=== PATIENT | female | born 1950 | race Caucasian/White ===

== ENCOUNTER → 2017-06-01 10:34 | Outpatient (CLI) | payer MEDICARE, OTHER, SELFPAY ==
[2017-06-01 12:57] LABS: ALB/GLOB Ratio 0.7 RATIO (0.9-2.4); AST(SGOT) 19 U/L (15-37); Alanine Aminotransfer ALT/SGPT 17 U/L (13-56); Albumin, Serum 3.3 g/dL (3.2-5.0); Alkaline Phosphatase 203 U/L (45-117); Anion Gap 10 (5-15); BUN 14 mg/dL (7-18); BUN/Creat Ratio 15.1 RATIO (10-20); Bilirubin, Direct 0.05 mg/dL (0.00-0.30); Calcium,Total 8.8 mg/dL (8.5-10.1); Chloride 102 mmol/L (98-107); Cholesterol 169 mg/dL (200); Creatinine, Serum 0.92 mg/dL (0.55-1.02); EST Glomerular Filtration Rate 64 mL/min (>60); Est Glom Filt Rate - Afr Amer 78 mL/min (>60); Globulin 4.9 g/dL (2.2-4.2); Glucose 87 mg/dL (74-106); High Density Lipoprotein 50 mg/dL; Potassium 3.6 mmol/L (3.5-5.1); Protein, Total 8.2 g/dL (6.4-8.2); Sodium Level 139 mmol/L (136-145); Triglycerides 94 mg/dL; Uric Acid 2.8 mg/dL (2.6-6.0); Very Low Density Lipoprotein 19 mg/dL (5-40)
== END ==
PROVIDERS: Family Provider Family Medicine; PCP Family Medicine; Visit Provider Family Medicine
DX: I10 Essential (primary) hypertension (principal); E78.00 Pure hypercholesterolemia, unspecified; R74.8 Abnormal levels of other serum enzymes; M10.9 Gout, unspecified
CPT/HCPCS: 80053; 80061; 80076; 84550

== ENCOUNTER 2018-05-07 10:57 | Inpatient (IN) | payer MEDICARE, OTHER, SELFPAY ==
[2018-05-07] VITALS (16 sets, daily range): BP systolic 118–194; BP diastolic 66–97; PULSE 69–94; RESP 18–36; TEMP 36.4–37.2; O2SAT 88–99; BMI 32.3; BMI 33.0
--- NOTE | 2018-05-07 11:31 | EKG12_ITS ---
Test Reason : SOB Blood Pressure : / mmHG Vent. Rate : 072 BPM Atrial Rate : 072 BPM P-R Int : 162 ms QRS Dur : 090 ms QT Int : 446 ms P-R-T Axes : 063 018 114 degrees QTc Int : 488 ms Normal sinus rhythm ST & T wave abnormality, consider lateral ischemia Abnormal ECG Confirmed by JORGE MALHOTRA, MICHELLE ([id number]), publishing editor NETTA RUBI ([id number]) on 05/09/2018 4:19:20 PM Referred By: RU Confirmed By:MICHELLE PATEL MD
--- NOTE | 2018-05-07 11:31 | RAD_ITS ---
STUDY: X-RAY CHEST REASON FOR EXAM: Female, 68 years old. Shortness of breath TECHNIQUE: Single AP portable view of the chest. COMPARISON: None. FINDINGS: Lungs are mildly hypoinflated. Left basilar airspace disease with small effusion. There appears to be a background of mild interstitial edema. There is mild cardiac enlargement. Normal mediastinum and ely. Normal visualized pulmonary arteries. There is atherosclerotic tortuosity of the aortic arch and descending thoracic aorta. There are diffuse degenerative changes of the visualized thoracic spine. There is degenerative osteoarthritis of the bilateral shoulders. There is no demonstrated abnormality of the visualized soft tissue structures of the upper abdomen. RAD/Chest 1 View (Portable) IMPRESSION: Background of mild pulmonary vascular congestion/interstitial edema with superimposed left lower lobe airspace disease and small effusion Electronically Signed: Santiago Johnson DO at 12:15 EDT Tel , Service support ,
[2018-05-07] MEDS: Ipratropium/Albuterol Sulfate 3 ML AMPUL.NEB INHALATION (11:45)
[2018-05-07 12:16] LABS: Anion Gap 7 (5-15); BUN 13 mg/dL (7-18); BUN/Creat Ratio 11.3 RATIO (10-20); Calcium,Total 8.3 mg/dL (8.5-10.1); Chloride 100 mmol/L (98-107); Creatinine, Serum 1.15 mg/dL (0.55-1.02); EST Glomerular Filtration Rate 50 mL/min (>60); Est Glom Filt Rate - Afr Amer 60 mL/min (>60); Estimated Creatinine Clearance 36.52 ml/min; Glucose 117 mg/dL (74-106); Potassium 3.3 mmol/L (3.5-5.1); Sodium Level 135 mmol/L (136-145)
[2018-05-07 12:17] LABS: Absolute Lymphocyte Count 1.22 X10^3/ul (0.83-4.51); Absolute Neutrophil Count 6.8 X10^3/uL (2.0-7.7); Basophil# 0.04 X10^3/uL; Basophil% 0.5 % (0-1); Differential Indicated SCAN CRITERIA MET; Eosinophils% 2.3 % (0-5); Hematocrit 23.3 % (37-47); Hemoglobin 6.1 g/dl (12.0-15.0); Lymphocyte # 1.22 X10^3/ul (4.0); Lymphocyte % 13.9 % (19-41); Mean Corp Hgb Conc 26.2 g/gl (32-36); Mean Corpuscular Hgb 17.7 pg (27.0-32.0); Mean Corpuscular Volume 67.5 fL (81-99); Mean Platelet Vol. 10.4 fl (6.2-12.0); Monocyte# 0.49 X10^3/uL; Monocyte% 5.6 % (0-10); Neutrophil # 6.78 X10^3/uL (2.7-7.7); Neutrophil % 77.2 % (47-70); POSITIVE COUNT NO; POSITIVE DIFFERENTIAL NO; POSITIVE MORPHOLOGY YES; Platelet Count 605 K/mm3 (150-450); RBC Distribution Width CV 19.1 % (11.6-14.6); RBC Distribution Width SD 45.5 fl (35.1-43.9); Red Blood Count 3.45 M/mm3 (4.2-5.4); White Blood Count 8.8 K/mm3 (4.4-11.0)
[2018-05-07 12:22] LABS: Absolute Nucleated RBC Count 0.16 10^3/uL (0-5); NRBC Flagged by Analyzer 1.9 % (0-5)
[2018-05-07 12:24] LABS: Lactic Acid 2.6 mmol/L (0.4-2.0)
[2018-05-07 12:37] LABS: Anisocytosis 2+; Hypochromasia 2+
--- NOTE | 2018-05-07 12:57 | ED.DCSUM_ITS ---
- ER Visit Summary Date of Service: 05/07/18 Chief Complaint: Shortness of breath History of Present Illness: The patient is a 68 F presents with dyspnea for 2-3 days she has had a cold for the past 2 weeks. She was seen by her primary care physician this morning and was found to be hypoxic and brought to the emergency department. Patient denies any fever or chills, she denies any chest pain. She has no leg pain or calf pain. She has no DVT or PE risk factors. She has no back pain or tearing sensation. Physical Examination: Patient is 88% on room air, mid 90s on 2 L of oxygen. She has coarse bilateral breath sounds with slight end expiratory wheezing. She has a regular rate ENT exam is consistent with upper airway congestion and rhinorrhea slightly dry mucous membranes there is no edema or calf pain. Emergency Department Course and Treatment: Patient is found to have a right lower lobe pneumonia, she received nebulizers, Rocephin and azithromycin for community-acquired pneumonia. Her blood work is otherwise unremarkable. She will be admitted for oxygen treatment as well as antibiotics. Lactic acid was slightly elevated, however she does not meet criteria for severe sepsis thus she does not need 30 mL's per kilogram of normal saline. Disposition: Admit in stable condition Impression: [Pneumonia.] This note was generated with [employer] dictation software. It may contain incorrect words, spelling, and punctuation that were not noted in review of the chart prior to signing ED Disposition - Plan for ED Patient: Referrals: Toño Cobian MD [Primary Care Provider] -
[2018-05-07] MEDS: 0.9% Normal Saline 1,000 ML 999 ML IV (13:47)
[2018-05-07] MEDS: Ceftriaxone 1 GM/50 ML BAG IV (13:48)
--- NOTE | 2018-05-07 14:47 | HP.PCM_ITS ---
Problem List (1) Hypertension Status: Chronic Qualifiers: Hypertension type: essential hypertension Qualified Code(s): I10 - Essential (primary) hypertension (2) Depression Status: Acute Qualifiers: Depression Type: unspecified Qualified Code(s): F32.9 - Major depressive disorder, single episode, unspecified (3) Anemia Status: Acute Qualifiers: Anemia type: unspecified type Qualified Code(s): D64.9 - Anemia, unspecified (4) CAP (community acquired pneumonia) Status: Acute Qualifiers: Laterality: left Lung location: lower lobe of lung Qualified Code(s): J18.1 - Lobar pneumonia, unspecified organism (5) Depression Status: Acute Qualifiers: Depression Type: unspecified Qualified Code(s): F32.9 - Major depressive disorder, single episode, unspecified History of Present Illness Date of Admission: 05/07/18 Chief Complaint: Shortness of breath - 2 weeks The patient is a 68 year old F with past medical history of hypertension, depression who comes seen with a 2-week history of progressive shortness of breath. Patient recently was recovering from upper respiratory illness. She went to her primary care doctor, tested negative for flu. Patient has been pr ogressively short of breath and went to see her primary care doctor again. Found to be hypoxic with SPO2 in the 75%. She was asked to come to the ED. Denied any chest pain or dizziness or palpitations. Denied any leg swelling. Denied any melena stools or bleeding from any part of her body. No history of colonoscopy Vitals in the ED show temperature of 90 7.6F, heart rate 94, blood pressure 194/ 82, respiratory rate 36, SPO2 was 88% on room air, improved to 97% on 2 L of oxygen Admitting blood work showed RBC count of 8.8, hemoglobin 6.1, platelet count of 605, sodium 135, potassium 3.3, creatinine 1.15 BUN 13 Iron studies showed iron deficiency anemia, BN pep was 267, lactic acid was 2.67 Chest x-ray showed mild pulmonary vascular congestion/interstitial edema with superimposed left lower lobe airspace disease and small effusion. Past Medical History Past Medical History (Chronic Problems): Chronic Problems Hypertension (Chronic) Allergies No Known Allergies Allergy (Verified 05/07/18 10:59) Home Medications: Ambulatory Orders Medication Instructions Recorded Venlafaxine HCl [Venlafaxine HCl 150 mg PO DAILY 05/07/18 ER] Verapamil HCl [Verapamil ER Pm] 300 mg PO DAILY 05/07/18 Surgical History: appendectomy, - - tubal Psychiatric History: Depression [employer] History: No pertinent [employer] history Lives: Alone Smoking Status: Never smoker Tobacco Use: Non-smoker Alcohol: None Drugs: None - *Family History Maternal History Items: COPD Paternal History Items: Heart Disease Review of Systems Constitutional: Reports: Anorexia, Weakness, Fatigue. Denies: Chills, Fever, Night Sweats, Weight Change Eyes: Denies: Blurred vision, Cataracts, Conjunctivae Inflammation HEENT: Denies: Difficulty Hearing, Difficulty Swallowing, Head Aches, Hearing Changes, Sinus Congestion, Sinus Drainage Cardiovascular: Denies: Chest Pain, Claudication, Orthopnea, Palpitations, Paroxysmal Noc. Dyspnea Respiratory: Reports: Shortness of breath at rest, Shortness of breath upon exertion. Denies: Cough, Sputum production Gastrointestinal: Denies: Abdominal Pain, Constipation, Hematemesis, Hematochezia, Nausea, Vomiting Genitourinary: Denies: Dysuria, Frequency Gynecological: Denies: Breast symptoms, Excessively long or heavy periods Musculoskeletal: Denies: Joint Pain, Joint stiffness, Joint Tenderness Skin: Denies: Rash, Wounds Neurological: Denies: Numbness, Tingling, Focal weakness Psychiatric: Denies: Anxiety, Depression, Homicidal Ideations, Suicidal Ideations Hematologic/ Lymphatic: Denies: Easy Bruising, Easy Bleeding VTE Information - Inpt Only VTE Present on Admission: No VTE Pharm Prophylaxis ordered?: Yes Patient Problems: Active and Suspected Problems Depression (Acute) Anemia (Acute) CAP (community acquired pneumonia) (Acute) Depression (Acute) - Physical Exam General: Alert, Oriented x3, Cooperative, No apparent distress HEENT: Atraumatic, PERRLA, EOMI, Normocephalic Oral: Moist Mucosa Neck: Supple Lungs: Diminished Cardiovascular: Regular rate, Regular Rhythm, Normal S1, Normal S2, Tachycardic Abdomen: Bowel Sounds Present, Soft, Non Tender, Non-Distended, Obese Extremities: No edema Skin: No rashes, No breakdown Musculoskeletal: No Tenderness to Palpation of Joints or Extremities Lymphatic: No Cervical, Supraclavicular, or Inguinal Adenopathy Neurological: Cranial nerves II-XII grossly intact Psych/Mental Status: Normal Affect, Appropriate Vital Signs Temp Pulse Resp BP Pulse Ox 97.6 F L 72 23 H 166/70 H 96 05/07/18 10:59 05/07/18 13:49 05/07/18 13:49 05/07/18 13:49 05/07/18 13:49 Oxygen Flow Rate (L/min) 2 Oxygen Delivery Method Nasal Cannula Weight: 80.286 kg Body Mass Index (BMI) 32.3 Microbiology Past 72 Hours 05/07/18 13:20 Stool Occult Blood ([facility]ELSON) - Final Stool Laboratory Tests Past 24 Hrs 05/07/18 05/07/18 05/07/18 11:32 11:40 11:40 WBC 8.8 RBC 3.45 L Hgb 6.1 L Hct 23.3 L MCV 67.5 L MCH 17.7 L MCHC 26.2 L RDW 19.1 H RDW Differential 45.5 H Plt Count 605 H MPV 10.4 Immature Gran % (Auto) 0.500 Neut % (Auto) 77.2 H Lymph % (Auto) 13.9 L [place] % (Auto) 5.6 Eos % (Auto) 2.3 Baso % (Auto) 0.5 Absolute Neuts (auto) 6.8 Absolute Lymphs (auto) 1.22 Total Counted Not Reportable Nucleated RBC % 1.9 Hypochromasia 2+ Anisocytosis 2+ Absolute Retic 0.16 Sodium 135 L Potassium 3.3 L Chloride 100 Carbon Dioxide 28.0 Anion Gap 7 BUN 13 Creatinine 1.15 H Estim Creat Clear Calc 36.52 Est GFR (MDRD) Af Amer 60 Est GFR (MDRD) Non-Af 50 L BUN/Creatinine Ratio 11.3 Glucose 117 H Lactic Acid Calcium 8.3 L Iron Pending TIBC Pending Ferritin Pending Troponin I 0.018 B-Natriuretic Peptide Blood Type Antibody Screen Crossmatch 05/07/18 05/07/18 05/07/18 11:40 11:40 13:25 WBC RBC Hgb Hct MCV MCH MCHC RDW RDW Differential Plt Count MPV Immature Gran % (Auto) Neut % (Auto) Lymph % (Auto) [place] % (Auto) Eos % (Auto) Baso % (Auto) Absolute Neuts (auto) Absolute Lymphs (auto) Total Counted Nucleated RBC % Hypochromasia Anisocytosis Absolute Retic Sodium Potassium Chloride Carbon Dioxide Anion Gap BUN Creatinine Estim Creat Clear Calc Est GFR (MDRD) Af Amer Est GFR (MDRD) Non-Af BUN/Creatinine Ratio Glucose Lactic Acid 2.6 H Calcium Iron TIBC Ferritin Troponin I B-Natriuretic Peptide 267.0 H Blood Type Pending Antibody Screen Pending Crossmatch See Detail Assessment/Plan All Active Problems Depression (Acute) Anemia (Acute) CAP (community acquired pneumonia) (Acute) Depression (Acute) 68 year old F with past medical history of hypertension, depression who comes seen with a 2-week history of progressive shortness of breath. Patient recently was recovering from upper respiratory illness. 1. Acute hypoxic respiratory failure came to community-acquired pneumonia and severe anemia, Patient was saturating 88% on room air on admission; 75% in the primary care doctor's office, Improved on 2 L of oxygen, continue to encourage use of incentive spirometer 2. Community acquired pneumonia, infiltrates in the left lower lobe on chest x- ray, no signs of sepsis, continue on ceftriaxone, azithromycin 3. Iron deficiency anemia, severe, admitting hemoglobin is 6.1, dropped from 13.9 in 2012, no reported history of melena stools or hematochezia Patient reports use on aspirin [id number], will start on PPI twice daily, repeat blood work in a.m., general surgery consulted from the ED 4. Hypokalemia, admitting potassium is 3.3, will replace, recheck in am 5. DANIELLE related to dehydration, admitting Cr is 1.15, previous Cr is 0.92, will need to trend labs 6. Elevated lactic acid secondary to severe anemia, will trend lactic acid 7. Hypertension, uncontrolled, continue on home medications, add hydralazine as needed, continue to monitor vitals 8. DVT PPx- SCDs Code Visit Inpatient E&M: 58676 Init Hosp L3
[2018-05-07 14:55] LABS: Ferritin 15 ng/mL (8-252); Iron 27 ug/dL (50-170); Iron Binding Capacity,Total 477 ug/dL (250-450)
[2018-05-07 15:50] LABS: Reflex Lactate? Y
[2018-05-07] MEDS: 0.9% NaCl Peripheral Flush Adult/Peds IV (20:34)
[2018-05-07] MEDS: Furosemide 40 MG/4 ML Vial IV (20:34)
[2018-05-07] MEDS: Verapamil SR 240 MG Tablet PO (20:34)
[2018-05-08] VITALS (21 sets, daily range): BP systolic 141–193; BP diastolic 64–96; PULSE 66–91; RESP 16–26; TEMP 36.6–37.3; O2SAT 88–98
[2018-05-08] MEDS: 0.9% NaCl Peripheral Flush Adult/Peds IV ×3 (01:56→21:27)
[2018-05-08 05:49] LABS: Anion Gap 8 (5-15); BUN 12 mg/dL (7-18); BUN/Creat Ratio 10.9 RATIO (10-20); Calcium,Total 8.2 mg/dL (8.5-10.1); Chloride 107 mmol/L (98-107); EST Glomerular Filtration Rate 52 mL/min (>60); Est Glom Filt Rate - Afr Amer 63 mL/min (>60); Estimated Creatinine Clearance 36.42 ml/min; Glucose 97 mg/dL (74-106); Potassium 3.2 mmol/L (3.5-5.1); Sodium Level 140 mmol/L (136-145)
[2018-05-08 06:47] LABS: Absolute Lymphocyte Count 1.66 X10^3/ul (0.83-4.51); Basophil# 0.04 X10^3/uL; Basophil% 0.4 % (0-1); Eosinophil# 0.32 X10^3/uL; Hematocrit 28.3 % (37-47); Hemoglobin 8.2 g/dl (12.0-15.0); Lymphocyte # 1.66 X10^3/ul (4.0); Lymphocyte % 15.6 % (19-41); Mean Corpuscular Hgb 20.8 pg (27.0-32.0); Mean Corpuscular Volume 71.8 fL (81-99); Mean Platelet Vol. 10.1 fl (6.2-12.0); Monocyte# 0.57 X10^3/uL; Monocyte% 5.4 % (0-10); Neutrophil # 8.01 X10^3/uL (2.7-7.7); Neutrophil % 75.4 % (47-70); Platelet Count 522 K/mm3 (150-450); Red Blood Count 3.94 M/mm3 (4.2-5.4); White Blood Count 10.6 K/mm3 (4.4-11.0)
[2018-05-08 06:48] LABS: Differential Indicated SCAN CRITERIA MET; POSITIVE COUNT NO; POSITIVE DIFFERENTIAL NO; POSITIVE MORPHOLOGY YES
[2018-05-08 07:30] LABS: Anisocytosis 1+; Hypochromasia 2+; Platelet Morphology LARGE; Polychromasia RARE
[2018-05-08 07:31] LABS: Ovalocyte RARE
[2018-05-08 07:32] LABS: Absolute Nucleated RBC Count 0.15 10^3/uL (0-5); NRBC Flagged by Analyzer 1.4 % (0-5)
[2018-05-08] MEDS: Furosemide 40 MG/4 ML Vial IV (08:27)
--- NOTE | 2018-05-08 08:32 | PCM.PN.HOSP ---
Patient Problems: Active and Suspected Problems Depression (Acute) Anemia (Acute) CAP (community acquired pneumonia) (Acute) Depression (Acute) Subjective: Patient was seen and examined. Complained of shortness of breath this morning. She denied any chest pain or dizziness. She has been coughing but the cough is dry. She had increasing her oxygen requirements to about 3 L. Objective: Physical Exam General: Alert, Oriented x3, Cooperative, No apparent distress, on 3L of oxygen, having slightly increased/labored breathing HEENT: Atraumatic, PERRLA, EOMI, Normocephalic Oral: Moist Mucosa Neck: Supple Lungs: Diminished at the lung bases, crackles heard Cardiovascular: Regular rate, Regular Rhythm, Normal S1, Normal S2, Tachycardic Abdomen: Bowel Sounds Present, Soft, Non Tender, Non-Distended, Obese Extremities: No edema Skin: No rashes, No breakdown Musculoskeletal: No Tenderness to Palpation of Joints or Extremities Lymphatic: No Cervical, Supraclavicular, or Inguinal Adenopathy Neurological: Cranial nerves II-XII grossly intact Psych/Mental Status: Normal Affect, Appropriate Vitals/I&O's: Vital Signs Temp Pulse Resp BP Pulse Ox 98.1 F 70 26 H 163/96 H 97 05/08/18 08:23 05/08/18 08:23 05/08/18 08:23 05/08/18 08:23 05/08/18 08:23 Oxygen Flow Rate (L/min) 2 Oxygen Delivery Method Nasal Cannula Weight: 81.6 kg Body Mass Index (BMI) 33.0 Intake and Output for Last 24 Hours 05/06/18 05/07/18 05/08/18 23:59 23:59 23:59 Intake Total 240 / 240 940 / 940 Output Total 1550 / 1550 Balance 240 / 240 -610 / -610 Microbiology Past 72 Hours 05/07/18 21:29 Interface Orders Streptococcus pneumoniae Antigen (M - Final 05/07/18 21:29 Interface Orders Legionella Antigen - Final 05/07/18 13:20 Stool Stool Occult Blood ([facility]) - Final Laboratory Results 05/07/18 11:32: Iron 27 L, TIBC 477 H, Ferritin 15 05/07/18 11:40: WBC 8.8, RBC 3.45 L, Hgb 6.1 L, Hct 23.3 L, MCV 67.5 L, MCH 17.7 L, MCHC 26.2 L, RDW 19.1 H, RDW Differential 45.5 H, Plt Count 605 H, MPV 10.4, Immature Gran % (Auto) 0.500, Neut % (Auto) 77.2 H, Lymph % (Auto) 13.9 L, [place] % (Auto) 5.6, Eos % (Auto) 2.3, Baso % (Auto) 0.5, Absolute Neuts (auto) 6.8, Absolute Lymphs (auto) 1.22, Total Counted Not Reportable, Nucleated RBC % 1.9, Hypochromasia 2+, Anisocytosis 2+, Absolute Retic 0.16 05/07/18 11:40: Sodium 135 L, Potassium 3.3 L, Chloride 100, Carbon Dioxide 28.0, Anion Gap 7, BUN 13, Creatinine 1.15 H, Estim Creat Clear Calc 36.52, Est GFR (MDRD) Af Amer 60, Est GFR (MDRD) Non-Af 50 L, BUN/Creatinine Ratio 11.3, Glucose 117 H, Calcium 8.3 L, Troponin I 0.018 05/07/18 11:40: Lactic Acid 2.6 H 05/07/18 11:40: B-Natriuretic Peptide 267.0 H 05/07/18 13:25: Blood Type O POSITIVE, Antibody Screen NEGATIVE, Crossmatch See Detail 05/07/18 13:25: Crossmatch See Detail 05/07/18 16:15: Lactic Acid 2.0 05/08/18 04:32: Sodium 140, Potassium 3.2 L, Chloride 107, Carbon Dioxide 25.0, Anion Gap 8, BUN 12, Creatinine 1.10 H, Estim Creat Clear Calc 36.42, Est GFR (MDRD) Af Amer 63, Est GFR (MDRD) Non-Af 52 L, BUN/Creatinine Ratio 10.9, Glucose 97, Calcium 8.2 L 05/08/18 04:32: WBC 10.6, RBC 3.94 L, Hgb 8.2 L, Hct 28.3 L, MCV 71.8 L, MCH 20.8 L, MCHC 29.0 L, RDW 21.0 H, RDW Differential 55.0 H, Plt Count 522 H, MPV 10.1, Immature Gran % (Auto) 0.200, Neut % (Auto) 75.4 H, Lymph % (Auto) 15.6 L, [place] % (Auto) 5.4, Eos % (Auto) 3.0, Baso % (Auto) 0.4, Absolute Neuts (auto) 8.0 H, Absolute Lymphs (auto) 1.66, Total Counted Not Reportable, Nucleated RBC % 1.4, Diff Path Review May foll, Plt Morphology Comment LARGE, Polychromasia RARE, Hypochromasia 2+, Anisocytosis 1+, Ovalocytes RARE, Absolute Retic 0.15 Current Medications Albuterol/Ipratropium (Duoneb) 3 ml INHALATION Q4HWA.RT DAMON Bisacodyl (Dulcolax) 5 mg PO DAILY PRN PRN PRN Reason: Constipation Hydralazine HCl (Apresoline Iv) 5 mg IV Q6H PRN PRN PRN Reason: BLOOD PRESSURE Sodium Chloride () 500 mls @ 999 mls/hr IV .Q31M ONE Last Admin: 05/07/18 11:45 Dose: 999 mls/hr Pantoprazole Sodium 40 mg/ (Sodium Chloride) 110 mls @ 330 mls/hr IV Q12 DAMON Last Admin: 05/07/18 20:34 Dose: 330 mls/hr Azithromycin 500 mg/ Dextrose 255 mls @ 250 mls/hr IV Q24 DAMON Ceftriaxone Sodium (Rocephin) 1 gm in 50 mls @ 100 mls/hr IV Q24 DAMON Magnesium Hydroxide (Milk Of Magnesia) 30 ml PO DAILY PRN PRN Reason: Constipation Psyllium Hydrophilic Mucilloid (Metamucil) 1 packet PO DAILY PRN PRN PRN Reason: CONSTIPATION Sodium Chloride () 5 - 15 ml IV UD PRN PRN Reason: SALINE FLUSH Last Admin: 05/08/18 01:56 Dose: 15 ml Venlafaxine HCl (Effexor Xr) 150 mg PO DAILY DAMON Verapamil HCl (Calan Sr) 240 mg PO QHS DAMON Last Admin: 05/07/18 20:34 Dose: 240 mg Medical Necessity - Tobacco Use Smoking Status: Never smoker Tobacco Use: Non-smoker Assessment/Plan All Active Problems Depression (Acute) Anemia (Acute) CAP (community acquired pneumonia) (Acute) Depression (Acute) 68 year old F with past medical history of hypertension, depression who comes seen with a 2-week history of progressive shortness of breath. Patient recently was recovering from upper respiratory illness. 1. Acute hypoxic respiratory failure came to community-acquired pneumonia and severe anemia, Patient was saturating 88% on room air on admission; 75% in the primary care doctor's office, Now with fluid overload from blood transfusions, will give IV lasix, continue to encourage use of incentive spirometer Wean off oxygen for SPO2 more than 94%. 2. Fluid overload from blood transfusions vs possible acute CHF, unclear EF. Patient received IV Lasix 40 mg of fluid through blood transfusions. Will repeat Lasix 40 mg IV x1, 2D echo, follow-up on I & Os. 2. Community acquired pneumonia, infiltrates in the left lower lobe on chest x-ray, No fevers seen, no leukocytosis, on ceftriaxone, azithromycin (day 2) 3. Iron deficiency anemia, severe, likely secondary to slow GI bleed, status post 2 units packed RBCs, hemoglobin improved to 8.2 admitting hemoglobin is 6.1, dropped from 13.9 in 2012, no reported history of melena stools or hematochezia Patient reports use on aspirin [id number], on PPI twice daily, General surgery consulted, repeat labs in am 4. Hypokalemia, potassium is 3.2, will replace, recheck in am 5. DANIELLE related to dehydration vs possible CKD, unknown recent creatinine from [facility]. Admitting Cr is 1.15, previous Cr in 2013 is 0.92, Cr today is 1.10, will repeat labs in am 6. Elevated lactic acid secondary to severe anemia 7. Hypertension, fairly uncontrolled, will continue on same home medications for now with ydralazine as needed, Will make changes later as needed. Will continue to monitor. 8. DVT PPx- SCDs Code Visit Inpatient E&M: 25923 Subs Hosp L2
--- NOTE | 2018-05-08 08:45 | ECHOD_ITS ---
Reason For Study: DYSPNEA/SOB Procedure This was a 2D Doppler, Color Flow transthoracic echocardiogram. Exam performed portable in patient room. Left Ventricle Normal LV size. Left ventricular systolic function is normal. The estimated ejection fraction is 60 %. Stage 2 diastolic dysfunction. No regional wall motion abnormalities noted. Right Ventricle Normal RV size. Normal systolic function. Atria Normal left atrium. Normal right atrium. Mitral Valve Normal mitral valve. Tricuspid Valve Normal tricuspid valve. Mild (1+) tricuspid valve insufficiency. Pulmonary artery systolic pressure is 43 mmHg. Aortic Valve Normal aortic valve. Pulmonic Valve Normal pulmonic valve. Great Vessels Normal aortic root. The pulmonary artery is normal size. Normal inferior vena cava. Pericardium/Pleural No pericardial effusion. MMode/2D Measurements & Calculations LVIDd: 4.7 cm IVSd: 0.94 cm Ao root diam: 3.2 cm LVIDs: 3.0 cm LVPWd: 1.0 cm FS: 35.1 % LAV(MOD-bp): 42.7 ml LVAd ap4: 27.5 cm2 SV(MOD-sp4): 47.9 ml LAV(MOD-bp) Indexed: 23.7 ml/m2 EDV(MOD-sp4): 80.7 ml LAV(MOD-sp2): 42.5 ml EDV(sp4-el): 85.5 ml LAV(MOD-sp4): 43.5 ml LVAs ap4: 15.6 cm2 ESV(MOD-sp4): 32.9 ml ESV(sp4-el): 32.8 ml EF(MOD-sp4): 59.3 % EF(sp4-el): 61.6 % SV(sp4-el): 52.7 ml LA A4 area: 16.4 cm2 LA dimension(2D): 4.1 cm RA A4 area: 13.5 cm2 Time Measurements MV dec time: 0.18 sec Doppler Measurements & Calculations MV E max eleazar: 141.8 cm/sec Lat Peak E' Eleazar: 8.0 cm/sec Med Peak E' Eleazar: 6.7 cm/sec MV A max eleazar: 109.0 cm/sec E/E' lat: 17.8 E/E' med: 21.1 MV E/A: 1.3 Ao V2 max: 188.6 cm/sec LV V1 max: 145.2 cm/sec PA V2 max: 121.8 cm/sec Ao max P.2 mmHg LV V1 max P.4 mmHg TR max eleazar: 313.7 cm/sec TR max P.4 mmHg Interpretation Summary Normal LV size. Left ventricular systolic function is normal. The estimated ejection fraction is 60 %. Stage 2 diastolic dysfunction. Mild (1+) tricuspid valve insufficiency. Ordering Physician: Karina Garza Referring Physician: SHANIQUE FONSECA Performed By: Cathy Morales RDCS
[2018-05-08] MEDS: Ipratropium/Albuterol Sulfate 3 ML AMPUL.NEB INHALATION ×3 (09:03→20:24)
--- NOTE | 2018-05-08 09:08 | PCM.CONS.GEN ---
Reason for Consult Date of Consultation: 05/08/18 History of Present Illness: The patient is a 68 year old F admitted for pneumonia. On initial workup patient was found to have a hemoglobin of 6.1. Patient states that for the last few weeks she has had a cold and felt fatigued with that. He otherwise denies any feeling of fatigue. States she had blood work about 6 months ago with her PCP Dr. Cobian I do not have that report. Patient denies any blood in her stool states she usually has bowel movements daily which are brown, denies any nausea/vomiting/reflux. Patient states her last colonoscopy was [address] Lee and he only found diverticulosis no polyps. Patient denies any abdominal pain. Patient did get 2 units of packed red blood cells yesterday and her hemoglobin did rise appropriately to 8.2. 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 Lives: Alone Smoking Status: Never smoker Tobacco Use: Non-smoker Alcohol: None Drugs: None - *Family History Maternal History Items: COPD Paternal History Items: Heart Disease Review of Systems Constitutional: Denies: Anorexia, Fever Eyes: Denies: Blurred vision HEENT: Denies: Difficulty Swallowing Cardiovascular: Denies: Chest Pain Respiratory: Reports: Shortness of Breath Gastrointestinal: Denies: Abdominal Pain, Hematochezia, Nausea, Melena, Vomiting Genitourinary: Denies: Dysuria Skin: Denies: Jaundice Psychiatric: Denies: Anxiety, Depression Hematologic/ Lymphatic: Denies: Easy Bleeding Patient Problems: Active and Suspected Problems Depression (Acute) Anemia (Acute) CAP (community acquired pneumonia) (Acute) Depression (Acute) - Physical Exam General: Alert, Oriented x3, Cooperative, No apparent distress HEENT: Atraumatic Cardiovascular: Regular rate Abdomen: Soft, Non Tender, Non-Distended Extremities: No clubbing, No cyanosis, No edema Neurological: Cranial nerves II-XII grossly intact Psych/Mental Status: Normal Affect Vital Signs Temp Pulse Resp BP Pulse Ox 98.1 F 70 26 H 163/96 H 97 05/08/18 08:23 05/08/18 08:23 05/08/18 08:23 05/08/18 08:23 05/08/18 08:23 Oxygen Flow Rate (L/min) 2 Oxygen Delivery Method Nasal Cannula Weight: 179 lb 14.355 oz Body Mass Index (BMI) 33.0 Intake and Output for Last 24 Hours 05/06/18 05/07/18 05/08/18 23:59 23:59 23:59 Intake Total 240 / 240 940 / 940 Output Total 1550 / 1550 Balance 240 / 240 -610 / -610 Microbiology Past 72 Hours 05/07/18 21:29 Streptococcus pneumoniae Antigen (M - Final Interface Orders 05/07/18 21:29 Legionella Antigen - Final Interface Orders 05/07/18 13:20 Stool Occult Blood (NELSON) - Final Stool Laboratory Tests Past 24 Hrs 05/07/18 05/07/18 05/07/18 11:32 11:40 11:40 WBC 8.8 RBC 3.45 L Hgb 6.1 L Hct 23.3 L MCV 67.5 L MCH 17.7 L MCHC 26.2 L RDW 19.1 H RDW Differential 45.5 H Plt Count 605 H MPV 10.4 Immature Gran % (Auto) 0.500 Neut % (Auto) 77.2 H Lymph % (Auto) 13.9 L Adams % (Auto) 5.6 Eos % (Auto) 2.3 Baso % (Auto) 0.5 Absolute Neuts (auto) 6.8 Absolute Lymphs (auto) 1.22 Total Counted Not Reportable Nucleated RBC % 1.9 Diff Path Review Plt Morphology Comment Polychromasia Hypochromasia 2+ Anisocytosis 2+ Ovalocytes Absolute Retic 0.16 Sodium 135 L Potassium 3.3 L Chloride 100 Carbon Dioxide 28.0 Anion Gap 7 BUN 13 Creatinine 1.15 H Estim Creat Clear Calc 36.52 Est GFR (MDRD) Af Amer 60 Est GFR (MDRD) Non-Af 50 L BUN/Creatinine Ratio 11.3 Glucose 117 H Lactic Acid Calcium 8.3 L Iron 27 L TIBC 477 H Ferritin 15 Troponin I 0.018 B-Natriuretic Peptide Blood Type Antibody Screen Crossmatch 05/07/18 05/07/18 05/07/18 11:40 11:40 13:25 WBC RBC Hgb Hct MCV MCH MCHC RDW RDW Differential Plt Count MPV Immature Gran % (Auto) Neut % (Auto) Lymph % (Auto) Adams % (Auto) Eos % (Auto) Baso % (Auto) Absolute Neuts (auto) Absolute Lymphs (auto) Total Counted Nucleated RBC % Diff Path Review Plt Morphology Comment Polychromasia Hypochromasia Anisocytosis Ovalocytes Absolute Retic Sodium Potassium Chloride Carbon Dioxide Anion Gap BUN Creatinine Estim Creat Clear Calc Est GFR (MDRD) Af Amer Est GFR (MDRD) Non-Af BUN/Creatinine Ratio Glucose Lactic Acid 2.6 H Calcium Iron TIBC Ferritin Troponin I B-Natriuretic Peptide 267.0 H Blood Type O POSITIVE Antibody Screen NEGATIVE Crossmatch See Detail 05/07/18 05/07/18 05/08/18 13:25 16:15 04:32 WBC RBC Hgb Hct MCV MCH MCHC RDW RDW Differential Plt Count MPV Immature Gran % (Auto) Neut % (Auto) Lymph % (Auto) Adams % (Auto) Eos % (Auto) Baso % (Auto) Absolute Neuts (auto) Absolute Lymphs (auto) Total Counted Nucleated RBC % Diff Path Review Plt Morphology Comment Polychromasia Hypochromasia Anisocytosis Ovalocytes Absolute Retic Sodium 140 Potassium 3.2 L Chloride 107 Carbon Dioxide 25.0 Anion Gap 8 BUN 12 Creatinine 1.10 H Estim Creat Clear Calc 36.42 Est GFR (MDRD) Af Amer 63 Est GFR (MDRD) Non-Af 52 L BUN/Creatinine Ratio 10.9 Glucose 97 Lactic Acid 2.0 Calcium 8.2 L Iron TIBC Ferritin Troponin I B-Natriuretic Peptide Blood Type Antibody Screen Crossmatch See Detail 05/08/18 04:32 WBC 10.6 RBC 3.94 L Hgb 8.2 L Hct 28.3 L MCV 71.8 L MCH 20.8 L MCHC 29.0 L RDW 21.0 H RDW Differential 55.0 H Plt Count 522 H MPV 10.1 Immature Gran % (Auto) 0.200 Neut % (Auto) 75.4 H Lymph % (Auto) 15.6 L Adams % (Auto) 5.4 Eos % (Auto) 3.0 Baso % (Auto) 0.4 Absolute Neuts (auto) 8.0 H Absolute Lymphs (auto) 1.66 Total Counted Not Reportable Nucleated RBC % 1.4 Diff Path Review May foll Plt Morphology Comment LARGE Polychromasia RARE Hypochromasia 2+ Anisocytosis 1+ Ovalocytes RARE Absolute Retic 0.15 Sodium Potassium Chloride Carbon Dioxide Anion Gap BUN Creatinine Estim Creat Clear Calc Est GFR (MDRD) Af Amer Est GFR (MDRD) Non-Af BUN/Creatinine Ratio Glucose Lactic Acid Calcium Iron TIBC Ferritin Troponin I B-Natriuretic Peptide Blood Type Antibody Screen Crossmatch Assessment/Plan All Active Problems Depression (Acute) Anemia (Acute) CAP (community acquired pneumonia) (Acute) Depression (Acute) 68-year-old female with pneumonia, anemia 1. Anemia?hemoglobin 6.1 on admit patient to get 2 units packed red blood cells currently is 8.2. Patient denies any blood per stool also had a negative fecal occult in the ER. Patient states that her last colonoscopy was [address] Lee and only had diverticulosis at that time no polyps. Okay for patient to follow-up for an outpatient EGD and colonoscopy as long as she remains stable in the hospital. Otherwise one could be done more urgently. Discussed with patient and her family that she can try to follow-up with Dr. Lee if she wants or she can follow-up with me as well. Khadijah Zelaya M.D. Pager: [phone] [facility] [address] [place] [address], [facility], [address] [place] [address] Office: [phone] Code Visit Inpatient E&M: 59229 Init Hosp L1
--- NOTE | 2018-05-08 09:14 | CON.PCM_ITS ---
Reason for Consult Date of Consultation: 05/08/18 History of Present Illness: The patient is a 68 year old F admitted for pneumonia. On initial workup patient was found to have a hemoglobin of 6.1. Patient states that for the last few weeks she has had a cold and felt fatigued with that. He otherwise denies any feeling of fatigue. States she had blood work about 6 months ago with her PCP Dr. Cobian I do not have that report. Patient denies any blood in her stool states she usually has bowel movements daily which are brown, denies any nausea/vomiting/reflux. Patient states her last colonoscopy was [address] Lee and he only found diverticulosis no polyps. Patient denies any abdominal pain. Patient did get 2 units of packed red blood cells yesterday and her hemoglobin did rise appropriately to 8.2. 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 Lives: Alone Smoking Status: Never smoker Tobacco Use: Non-smoker Alcohol: None Drugs: None - *Family History Maternal History Items: COPD Paternal History Items: Heart Disease Review of Systems Constitutional: Denies: Anorexia, Fever Eyes: Denies: Blurred vision HEENT: Denies: Difficulty Swallowing Cardiovascular: Denies: Chest Pain Respiratory: Reports: Shortness of Breath Gastrointestinal: Denies: Abdominal Pain, Hematochezia, Nausea, Melena, Vomiting Genitourinary: Denies: Dysuria Skin: Denies: Jaundice Psychiatric: Denies: Anxiety, Depression Hematologic/ Lymphatic: Denies: Easy Bleeding Patient Problems: Active and Suspected Problems Depression (Acute) Anemia (Acute) CAP (community acquired pneumonia) (Acute) Depression (Acute) - Physical Exam General: Alert, Oriented x3, Cooperative, No apparent distress HEENT: Atraumatic Cardiovascular: Regular rate Abdomen: Soft, Non Tender, Non-Distended Extremities: No clubbing, No cyanosis, No edema Neurological: Cranial nerves II-XII grossly intact Psych/Mental Status: Normal Affect Vital Signs Temp Pulse Resp BP Pulse Ox 98.1 F 70 26 H 163/96 H 97 05/08/18 08:23 05/08/18 08:23 05/08/18 08:23 05/08/18 08:23 05/08/18 08:23 Oxygen Flow Rate (L/min) 2 Oxygen Delivery Method Nasal Cannula Weight: 179 lb 14.355 oz Body Mass Index (BMI) 33.0 Intake and Output for Last 24 Hours 05/06/18 05/07/18 05/08/18 23:59 23:59 23:59 Intake Total 240 / 240 940 / 940 Output Total 1550 / 1550 Balance 240 / 240 -610 / -610 Microbiology Past 72 Hours 05/07/18 21:29 Streptococcus pneumoniae Antigen (M - Final Interface Orders 05/07/18 21:29 Legionella Antigen - Final Interface Orders 05/07/18 13:20 Stool Occult Blood (NELSON) - Final Stool Laboratory Tests Past 24 Hrs 05/07/18 05/07/18 05/07/18 11:32 11:40 11:40 WBC 8.8 RBC 3.45 L Hgb 6.1 L Hct 23.3 L MCV 67.5 L MCH 17.7 L MCHC 26.2 L RDW 19.1 H RDW Differential 45.5 H Plt Count 605 H MPV 10.4 Immature Gran % (Auto) 0.500 Neut % (Auto) 77.2 H Lymph % (Auto) 13.9 L Dyer % (Auto) 5.6 Eos % (Auto) 2.3 Baso % (Auto) 0.5 Absolute Neuts (auto) 6.8 Absolute Lymphs (auto) 1.22 Total Counted Not Reportable Nucleated RBC % 1.9 Diff Path Review Plt Morphology Comment Polychromasia Hypochromasia 2+ Anisocytosis 2+ Ovalocytes Absolute Retic 0.16 Sodium 135 L Potassium 3.3 L Chloride 100 Carbon Dioxide 28.0 Anion Gap 7 BUN 13 Creatinine 1.15 H Estim Creat Clear Calc 36.52 Est GFR (MDRD) Af Amer 60 Est GFR (MDRD) Non-Af 50 L BUN/Creatinine Ratio 11.3 Glucose 117 H Lactic Acid Calcium 8.3 L Iron 27 L TIBC 477 H Ferritin 15 Troponin I 0.018 B-Natriuretic Peptide Blood Type Antibody Screen Crossmatch 05/07/18 05/07/18 05/07/18 11:40 11:40 13:25 WBC RBC Hgb Hct MCV MCH MCHC RDW RDW Differential Plt Count MPV Immature Gran % (Auto) Neut % (Auto) Lymph % (Auto) Dyer % (Auto) Eos % (Auto) Baso % (Auto) Absolute Neuts (auto) Absolute Lymphs (auto) Total Counted Nucleated RBC % Diff Path Review Plt Morphology Comment Polychromasia Hypochromasia Anisocytosis Ovalocytes Absolute Retic Sodium Potassium Chloride Carbon Dioxide Anion Gap BUN Creatinine Estim Creat Clear Calc Est GFR (MDRD) Af Amer Est GFR (MDRD) Non-Af BUN/Creatinine Ratio Glucose Lactic Acid 2.6 H Calcium Iron TIBC Ferritin Troponin I B-Natriuretic Peptide 267.0 H Blood Type O POSITIVE Antibody Screen NEGATIVE Crossmatch See Detail 05/07/18 05/07/18 05/08/18 13:25 16:15 04:32 WBC RBC Hgb Hct MCV MCH MCHC RDW RDW Differential Plt Count MPV Immature Gran % (Auto) Neut % (Auto) Lymph % (Auto) Dyer % (Auto) Eos % (Auto) Baso % (Auto) Absolute Neuts (auto) Absolute Lymphs (auto) Total Counted Nucleated RBC % Diff Path Review Plt Morphology Comment Polychromasia Hypochromasia Anisocytosis Ovalocytes Absolute Retic Sodium 140 Potassium 3.2 L Chloride 107 Carbon Dioxide 25.0 Anion Gap 8 BUN 12 Creatinine 1.10 H Estim Creat Clear Calc 36.42 Est GFR (MDRD) Af Amer 63 Est GFR (MDRD) Non-Af 52 L BUN/Creatinine Ratio 10.9 Glucose 97 Lactic Acid 2.0 Calcium 8.2 L Iron TIBC Ferritin Troponin I B-Natriuretic Peptide Blood Type Antibody Screen Crossmatch See Detail 05/08/18 04:32 WBC 10.6 RBC 3.94 L Hgb 8.2 L Hct 28.3 L MCV 71.8 L MCH 20.8 L MCHC 29.0 L RDW 21.0 H RDW Differential 55.0 H Plt Count 522 H MPV 10.1 Immature Gran % (Auto) 0.200 Neut % (Auto) 75.4 H Lymph % (Auto) 15.6 L Dyer % (Auto) 5.4 Eos % (Auto) 3.0 Baso % (Auto) 0.4 Absolute Neuts (auto) 8.0 H Absolute Lymphs (auto) 1.66 Total Counted Not Reportable Nucleated RBC % 1.4 Diff Path Review May foll Plt Morphology Comment LARGE Polychromasia RARE Hypochromasia 2+ Anisocytosis 1+ Ovalocytes RARE Absolute Retic 0.15 Sodium Potassium Chloride Carbon Dioxide Anion Gap BUN Creatinine Estim Creat Clear Calc Est GFR (MDRD) Af Amer Est GFR (MDRD) Non-Af BUN/Creatinine Ratio Glucose Lactic Acid Calcium Iron TIBC Ferritin Troponin I B-Natriuretic Peptide Blood Type Antibody Screen Crossmatch Assessment/Plan All Active Problems Depression (Acute) Anemia (Acute) CAP (community acquired pneumonia) (Acute) Depression (Acute) 68-year-old female with pneumonia, anemia 1. Anemia?hemoglobin 6.1 on admit patient to get 2 units packed red blood cells currently is 8.2. Patient denies any blood per stool also had a negative fecal occult in the ER. Patient states that her last colonoscopy was [address] Lee and only had diverticulosis at that time no polyps. Okay for patient to follow-up for an outpatient EGD and colonoscopy as long as she remains stable in the hospital. Otherwise one could be done more urgently. Discussed with patient and her family that she can try to follow-up with Dr. Lee if she wants or she can follow-up with me as well. Khadijah Zelaya M.D. Pager: [phone] [facility] [address] [place] [address], [facility], [address] [place] [address] Office: [phone] Code Visit Inpatient E&M: 08642 Init Hosp L1
[2018-05-08] MEDS: Venlafaxine XR 150 MG Capsule PO (09:52)
[2018-05-08] MEDS: hydrALAZINE 20 MG/ML Vial 5 MG IV ×2 (09:52→17:49)
[2018-05-08] MEDS: Ceftriaxone 1 GM/50 ML BAG IV (10:48)
[2018-05-08] MEDS: Verapamil SR 240 MG Tablet PO (19:57)
[2018-05-09] VITALS (11 sets, daily range): BP systolic 150–164; BP diastolic 76–89; PULSE 69–82; RESP 16–20; TEMP 36.6–36.8; O2SAT 80–97
--- NOTE | 2018-05-09 00:15 | NURSING ---
This RN took over care of patient at this time
[2018-05-09 06:46] LABS: Anion Gap 7 (5-15); BUN 12 mg/dL (7-18); BUN/Creat Ratio 12.2 RATIO (10-20); Calcium,Total 8.6 mg/dL (8.5-10.1); Chloride 109 mmol/L (98-107); Creatinine, Serum 0.98 mg/dL (0.55-1.02); EST Glomerular Filtration Rate 60 mL/min (>60); Est Glom Filt Rate - Afr Amer 72 mL/min (>60); Estimated Creatinine Clearance 40.88 ml/min; Glucose 98 mg/dL (74-106); Potassium 3.7 mmol/L (3.5-5.1); Sodium Level 140 mmol/L (136-145)
[2018-05-09 07:04] LABS: Absolute Lymphocyte Count 2.13 X10^3/ul (0.83-4.51); Absolute Neutrophil Count 8.6 X10^3/uL (2.0-7.7); Basophil# 0.06 X10^3/uL; Basophil% 0.5 % (0-1); Eosinophil# 0.76 X10^3/uL; Eosinophils% 6.3 % (0-5); Hematocrit 28.8 % (37-47); Hemoglobin 8.3 g/dl (12.0-15.0); Lymphocyte # 2.13 X10^3/ul (4.0); Lymphocyte % 17.6 % (19-41); Mean Corp Hgb Conc 28.8 g/gl (32-36); Mean Corpuscular Hgb 20.9 pg (27.0-32.0); Mean Corpuscular Volume 72.4 fL (81-99); Mean Platelet Vol. 10.1 fl (6.2-12.0); Monocyte# 0.54 X10^3/uL; Monocyte% 4.5 % (0-10); Neutrophil % 70.9 % (47-70); Platelet Count 537 K/mm3 (150-450); RBC Distribution Width CV 21.3 % (11.6-14.6); RBC Distribution Width SD 55.3 fl (35.1-43.9); Red Blood Count 3.98 M/mm3 (4.2-5.4); White Blood Count 12.1 K/mm3 (4.4-11.0)
[2018-05-09 07:07] LABS: Absolute Nucleated RBC Count 0.08 10^3/uL (0-5); NRBC Flagged by Analyzer 0.7 % (0-5); POSITIVE COUNT NO; POSITIVE DIFFERENTIAL NO; POSITIVE MORPHOLOGY YES
[2018-05-09 07:32] LABS: Differential Indicated SCAN CRITERIA MET
[2018-05-09 07:33] LABS: Anisocytosis 2+; Differential Comment SCAN; Hypochromasia 1+; Microcytosis 1+; Platelet Estimate MOD INC (ADEQ); Platelet Morphology LARGE; Polychromasia 1+
[2018-05-09] MEDS: Ipratropium/Albuterol Sulfate 3 ML AMPUL.NEB INHALATION ×3 (07:55→14:55)
[2018-05-09] MEDS: Venlafaxine XR 150 MG Capsule PO (09:23)
[2018-05-09] MEDS: 0.9% NaCl Peripheral Flush Adult/Peds IV ×2 (09:27→13:14)
[2018-05-09 12:01] LABS: Pathologist Review Reviewed
[2018-05-09] MEDS: Ceftriaxone 1 GM/50 ML BAG IV (12:43)
[2018-05-09] MEDS: Furosemide 20 MG/2 ML VIAL IV (13:14)
--- NOTE | 2018-05-09 13:45 | CASEMGMT ---
ROXI FRITZ Face to Face with patient for initial transition planning/care coordination assessment. RN CM introduced self and role at [facility]. Patient lying in bed, alert and oriented, daughter at bedside. Patient willing to participate in assessment and is able to answer all questions appropriately. Care providers, pharmacy, and demographics verified. Patient wishes to discharge to daughters home in [place] with outpatient therapy. Patient states she has no further needs or concerns at this time. CM to follow for discharge planning needs that may arise. PCP: Toño Cobian Specialists: None Preferred [facility]acy: [facility] Insurance: [email or web address] Prescription Benefit: Yes, [employer] [facility] Living Will/HPOA: Yes daughter Bev Corona LNOK: Daughter, son Living Arrangements: Patient lives alone in 1 story home with 3 steps and railing to enter the home. Patient states that she is independent at home. Transportation: self/family DME/HHC: Pateitn states that she has a walker. Denies home oxygen, nebulizer, bipap, or cpap. Patient is agreeable to [facility] for DME. Patient denies HHC in the past. Disposition Plan: Patient to discharge to daughters home with family support and follow-up plans in place. Bev PETERSON, RN, CM
--- NOTE | 2018-05-09 14:50 | DCINST_ITS ---
- Discharge Diagnoses Current Active Problems: Current Active and Chronic Problems Hypertension (Chronic) Depression (Acute) Anemia (Acute) CAP (community acquired pneumonia) (Acute) Depression (Acute) Reason(s) for Visit for Discharge Instructions: Shortness of breath You will use the following diet at home:: Cardiac Your food should be the consistency of: Regular Your liquids should be the consistency of: Regular/Thin Discharge Activity: Return to Normal Activity Call your doctor if you observe: Fever of 101 or Higher, Shortness of breath, Dizziness Additional Instructions: Continue to use your oxygen as prescribed. Use oxygen all the time. Continue to use incentive spirometer. Complete antibiotics. Follow-up with your primary care doctor within 1-2 weeks. You would need your oxygen requirements to be evaluated. You would need to also have a colonoscopy done. You should have your blood work done within a week to follow-up on anemia and kidney function. Allergies/Adverse Reactions: Allergies No Known Allergies Allergy (Verified 05/07/18 10:59) Medications to take at Discharge Venlafaxine HCl [Venlafaxine HCl ER] 150 mg PO DAILY 05/07/18 Verapamil HCl [Verapamil ER Pm] 300 mg PO DAILY 05/07/18 Amox/Clavulanate Tablet [Augmentin Tablet] 875 mg PO Q12H #10 tab 05/09/18 Furosemide [Lasix] 20 mg PO DAILY #14 tab 05/09/18 Pantoprazole Sodium [Protonix] 40 mg PO BID #60 tab 05/09/18 The following prescriptions were given: Amox/Clavulanate Tablet [Augmentin Tablet] 875 mg PO Q12H #10 tab Pantoprazole Sodium [Protonix] 40 mg PO BID #60 tab Primary Care Physician: Toño Cobian MD [Primary Care Provider] - Please follow up with your Primary Care Physician in: within 1-2 weeks Test Results: Test results from this visit will be discussed in further detail at your follow- up appointment, if applicable. Proposed Discharge Date: 05/09/18
--- NOTE | 2018-05-09 14:51 | PCM.DC.SUM ---
Discharge Date and Diagnosis Date of Admission: 05/07/18 Date of Discharge: 05/09/18 - Primary Discharge Diagnosis Active and Suspected Problems Acute hypoxic respiratory failure Community-acquired pneumonia Elevated lactic acid secondary to severe anemia Severe iron deficiency anemia status post blood transfusion Suspected GI bleed Possible acute on chronic diastolic CHF, fluid overload Hypokalemia Acute kidney injury Uncontrolled hypertension - Secondary Discharge Diagnosis Chronic Problems Hypertension (Chronic) Hospital Course and Treatment Imaging Results: Clinical Impression(s) from Imaging Studies Chest X-Ray 05/07/18 11:31 IMPRESSION: Background of mild pulmonary vascular congestion/interstitial edema with superimposed left lower lobe airspace disease and small effusion Electronically Signed: Santiago Johnson DO at 12:15 EDT Tel , Service support , General surgery Operations: None Procedures: 2-D Echocardiogram Summary of Care Provided: 68 year old F with past medical history of hypertension, depression who comes seen with a 2-week history of progressive shortness of breath. Patient recently was recovering from upper respiratory illness. Patient was saturating at 88% on room air on admission. She was earlier in her primary care doctor's office and asked to come to the ED. She was saturating at 75% on room air. Her admitting blood work showed a WBC count of 8.8, platelet was 605, hemoglobin was 6.1. Potassium was 3.3, creatinine was 1.15. Iron studies showed iron deficiency anemia. Lactic acid was 2.67. Chest x-ray shows mild pulmonary vascular congestion with superimposed left lower lobe airspace disease with small effusion. Patient was admitted to telemetry bed, managed on oxygen, IV antibiotics for community-acquired pneumonia. She was also transfused 2 units of packed RBCs. She was seen by general surgery who recommended outpatient colonoscopy and EGD. Patient continued to improve, and was discharged on Augmentin after initial treatment with ceftriaxone and azithromycin. She had hypokalemia that was replaced in the hospital. Her acute kidney injury resolved with hydration. On the day of discharge, patient was 89% at rest on room air, 80% on ambulating on room air, improved to 92% on 2 L of oxygen. She qualified for home oxygen. Her daughter was going to send her to [place] to be closer to her. She will be followed up with general surgery and her primary care doctor. She knows that she has to repeat blood work within a week to check on the blood counts as well as kidney function. She had increased work of respiration after her blood transfusion. No clear history of CHF. 2D echo showed normal EF of 60%, stage II diastolic dysfunction. Patient was discharged with a week's worth of Lasix 20 mg daily. She knows to follow-up with her primary care doctor within a week. Subjective: Patient was seen and examined on the day of discharge. She admits to feeling improved. She has shortness of breath on exertion. Daughter was at the bedside. She works in [place] as an oncology nurse. She wants to take her mother to [place]. She is aware that her mother will need an EGD and colonoscopy in the outpatient in the next couple of weeks. She is also aware that her mother had qualified for oxygen but still wants to take a mother with head to [place]. Objective: Physical Exam General: Alert, Oriented x3, Cooperative, No apparent distress, on 3L of oxygen, having slightly increased/labored breathing HEENT: Atraumatic, PERRLA, EOMI, Normocephalic Oral: Moist Mucosa Neck: Supple Lungs: Diminished at the lung bases, crackles heard Cardiovascular: Regular rate, Regular Rhythm, Normal S1, Normal S2, Tachycardic Abdomen: Bowel Sounds Present, Soft, Non Tender, Non-Distended, Obese Extremities: No edema Skin: No rashes, No breakdown Musculoskeletal: No Tenderness to Palpation of Joints or Extremities Lymphatic: No Cervical, Supraclavicular, or Inguinal Adenopathy Neurological: Cranial nerves II-XII grossly intact Psych/Mental Status: Normal Affect, Appropriate - Physical Exam Vital Signs Temp Pulse Resp BP Pulse Ox 98.3 F 76 20 H 150/76 H 80 05/09/18 13:24 05/09/18 13:24 05/09/18 13:24 05/09/18 13:24 05/09/18 14:30 Oxygen Flow Rate (L/min) 1 Oxygen Delivery Method Nasal Cannula Weight: 81.5 kg Body Mass Index (BMI) 33.0 Intake and Output for Last 24 Hours 05/07/18 05/08/18 05/09/18 23:59 23:59 23:59 Intake Total 240 / 240 1660 / 1660 779 / 779 Output Total 3250 / 3250 400 / 400 Balance 240 / 240 -1590 / -1590 379 / 379 Microbiology Past 72 Hours 05/07/18 13:25 Bacteria Detection (PCR) - Final Blood Culture (Wb) #2 - Anticubital Left Blood Culture - Preliminary 05/07/18 13:45 Blood Culture - Preliminary Blood Culture (Wb) #2 - Right Forearm No growth in 48 hours. 05/09/18 07:55 Respiratory Panel (PCR) - Final Mucosa - Nose 05/07/18 21:29 Streptococcus pneumoniae Antigen (M - Final Interface Orders 05/07/18 21:29 Legionella Antigen - Final Interface Orders 05/07/18 13:20 Stool Occult Blood (NELSON) - Final Stool Laboratory Tests Past 24 Hrs 05/08/18 05/09/18 05/09/18 04:32 06:15 06:15 WBC 12.1 H RBC 3.98 L Hgb 8.3 L Hct 28.8 L MCV 72.4 L MCH 20.9 L MCHC 28.8 L RDW 21.3 H RDW Differential 55.3 H Plt Count 537 H MPV 10.1 Immature Gran % (Auto) 0.200 Neut % (Auto) 70.9 H Lymph % (Auto) 17.6 L Henry % (Auto) 4.5 Eos % (Auto) 6.3 H Baso % (Auto) 0.5 Absolute Neuts (auto) 8.6 H Absolute Lymphs (auto) 2.13 Total Counted Not Reportable Nucleated RBC % 0.7 Differential Comment SCAN Diff Path Review Reviewed Platelet Estimate MOD INC Plt Morphology Comment LARGE Polychromasia 1+ Hypochromasia 1+ Anisocytosis 2+ Microcytosis 1+ Absolute Retic 0.08 Sodium 140 Potassium 3.7 Chloride 109 H Carbon Dioxide 24.0 Anion Gap 7 BUN 12 Creatinine 0.98 Estim Creat Clear Calc 40.88 Est GFR (MDRD) Af Amer 72 Est GFR (MDRD) Non-Af 60 BUN/Creatinine Ratio 12.2 Glucose 98 Calcium 8.6 Discharge Diet: Low fat/ Low Cholesterol, 2000 mg Sodium Diet Discharge Activity: Return to Normal Activity Call your doctor if you observe: Fever of 101 or Higher, Shortness of breath, Dizziness Home Medications: Medications to take at Discharge Venlafaxine HCl [Venlafaxine HCl ER] 150 mg PO DAILY 05/07/18 Verapamil HCl [Verapamil ER Pm] 300 mg PO DAILY 05/07/18 Amox/Clavulanate Tablet [Augmentin Tablet] 875 mg PO Q12H #10 tab 05/09/18 Furosemide [Lasix] 20 mg PO DAILY #14 tab 05/09/18 Pantoprazole Sodium [Protonix] 40 mg PO BID #60 tab 05/09/18 Following Prescrptions Were Given to Patient: Amox/Clavulanate Tablet [Augmentin Tablet] 875 mg PO Q12H #10 tab Furosemide [Lasix] 20 mg PO DAILY #14 tab Pantoprazole Sodium [Protonix] 40 mg PO BID #60 tab Primary Care Physician: Toño Cobian MD [Primary Care Provider] - Please follow up with your Primary Care Physician in: within 1-2 weeks Disposition: Home Minutes spent on discharge:: 40 Patient Condition:: Stable Medical Necessity - Tobacco Use Smoking Status: Never smoker Tobacco Use: Non-smoker Meaningful Use Info Meaningful Use Diagnoses (Choose all that apply): None applicable Code Visit Inpatient E&M: 23411 Disch Hosp
--- NOTE | 2018-05-09 15:17 | NURSING ---
pt walked in hallway with O2. Pt required 3L O2 to maintain sats at 92%
--- NOTE | 2018-05-09 15:20 | CASEMGMT ---
Addendum entered by Bev Zuluaga 05/09/18 17:35: Call to [employer] line to verify with them that pt will be set up in [place], [place] at daughter's address and [employer] rep states that she will message motor coach bus driver in that area to make sure gets call to set up concentrator and portable tanks at [facility]. Miriam DIANE CM Original Note: Addendum entered by Bev Zan 05/09/18 17:07: Daughter states that she is going to get a portable pulse ox for at home for pt prior to travel to [place]. Miriam DIANE CM Original Note: Per Devon DIANE, pt does qualify for home oxygen at this time. Pt will be going to stay with daughter in [place]. Referral faxed to [employer] at this time and call to Silvia at [facility] to advise of trip to [place]. Per Silvia, portable wheeled tank will last 3 hours on 3 liters continuous. Pt/daughter updated at this time, voice understanding. Per Devon DIANE, pt is actually ok on 2liters when at rest but required 3liters to recover after ambulation. This ROXI FRITZ did place daughter's address on script as delivery address and Silvia is aware at this time. Daughter also requests script for OP PT/OT for pt at this time and script provided to her at this time. Pt/daughter voice no further questions/concerns/needs at this time. Miriam DIANE CM
--- NOTE | 2018-05-10 10:50 | CASEMGMT ---
ROXI FRITZ F/U phone call Discharge date: 05/09/18 Call date: 05/10/18 Call time: 1050 Duration: 3 minutes Admission dx: Acute Hypoxic Respiratory Failure This ROXI FRITZ placed call to pt's daughter, Bev, at this time. Bev states that pt did well during transport to Bev's home in [place] and oxygen got set up properly. She states that pt is doing 'great' and 'feeling much better.' She states that her mom's oxygen sats have been good since discharge. She states that pt has f/u appt with PCP next week. Daughter, Bev, states no further questions/concerns/needs at this time and starts crying and states that she would like to thank everyone for the wonderful care. Miriam DIANE CM
== END 2018-05-09 18:33 | disposition home or self-care (01) | DRG 811 ==
LOC: ED 13:12 → PCU 15:46
PROVIDERS: Admitting Provider Internal Medicine; Emergency Provider Emergency Medicine; Family Provider Family Medicine; PCP Family Medicine; Visit Provider Internal Medicine
DX: D50.9 Iron deficiency anemia, unspecified (principal); J18.9 Pneumonia, unspecified organism; I50.33 Acute on chronic diastolic (congestive) heart failure; J96.01 Acute respiratory failure with hypoxia; N17.9 Acute kidney failure, unspecified; K92.2 Gastrointestinal hemorrhage, unspecified; E86.0 Dehydration; E87.6 Hypokalemia; E87.70 Fluid overload, unspecified; I11.0 Hypertensive heart disease with heart failure
CPT/HCPCS: 36415; 71045; 80048; 82274; 82728; 83540; 83550; 83605; 83880; 84484; 85025; 86644; 86850; 86900; 86920; 86922; 87040; 87149; 87449; 87633; 93005; 93306; 94640; 97161; 97166; 97530; 99283; J7030; J7040; P9016; A4216; J1940

== ENCOUNTER 2018-06-20 09:01 | Day surgery (SDC) | payer MEDICARE, OTHER, SELFPAY ==
[2018-06-01 14:27] VITALS: BMI 33.0
--- NOTE | 2018-06-02 09:30 | HP_ITS ---
Intake Vital Signs 06/01/18 Body Mass Index (BMI) 33.0 06/01/18 Height 5 ft 2 in 06/01/18 Weight: 168 lb 06/01/18 Body Mass Index (BMI) 30.7 06/01/18 Blood Pressure 158/85 H 06/01/18 Blood Pressure Location Rt brachial 06/01/18 Blood Pressure Position Sitting 06/01/18 Respiratory Rate 20 H 06/01/18 Pulse Rate 58 L 06/01/18 Pulse Source Monitor 06/01/18 Temperature 97.5 F L 06/01/18 Temperature Source Oral 06/01/18 Pulse Ox 99 06/01/18 Oxygen Delivery Method room air Intake Visit Reasons: ENDO & COLONOSCOPY Chief Complaint: SOB Septic Tank Installer Required: No Is patient in pain?: No Allergies No Known Allergies Allergy (Verified 06/01/18 14:19) Medications Venlafaxine HCl [Venlafaxine HCl ER] 150 mg PO DAILY 05/07/18 [History Confirmed 06/01/18] Verapamil HCl [Verapamil ER Pm] 300 mg PO DAILY 05/07/18 [History Confirmed 06/01/18] allopurinol 300 mg tablet 300 mg PO DAILY 06/01/18 [History Confirmed 06/01/18] ferrous sulfate 325 mg (65 mg iron) tablet 325 mg PO DAILY tab 06/01/18 [History Confirmed 06/01/18] pantoprazole 40 mg tablet,delayed release 40 mg PO DAILY tab 06/01/18 [History] PFSH Medical History Hypertension (Chronic) Depression (Acute) Anemia (Acute) CAP (community acquired pneumonia) (Acute) Depression (Acute) Arthritis (Acute) History of back problems (Acute) Surgical History Excision ectopic (Acute) History of appendectomy (Acute) History of foot surgery (Acute) Family History Mother Breast cancer Hypertension Cancer skin cancer Father Diabetes Heart disease Hypertension Cancer skin cancer Brother Diabetes Social History Smoking Status: Never smoker alcohol intake: never substance use type: does not use HPI HPI HPI: TERESA GREWAL, is a 68 F who presents to the office today for HPI HPI Surgical H&P: Yes HPI: TERESA GREWAL, is a 68 F who presents to the office today for EGD and colonoscopy due to anemia. Patient was admitted to the hospital May 07 through the 2018 for shortness of breath/pneumonia. On admission she was found to have a hemoglobin of 6.1, last Hb 13.9 from 2012 in our system. Patient states she was fatigued previously which has improved currently. While she is in the hospital she received 2 units packed red blood cells. Patient denies any blood in her stool states she normally has daily bowel movements which are brown. Patient last had a colonoscopy [address] Lee and states it was negative. Patient denies any heartburn or abdominal pain or nausea or vomiting. Patient was put on Protonix 40 mg daily after her hospitalization as a precaution. Patient was treated with antibiotics and currently states her pneumonia is improved and she has completed her antibiotics. Patient did have repeat blood work on 05/16 her hemoglobin is 9.4 and on 05/24 her hemoglobin was 9.9. Patient has been on iron 325 a day. ROS General General: Yes weight change and fatigue; no appetite, colon cancer, breast cancer or weakness HEENT HEENT: No difficulty swallowing, eye injury, eye surgery, swollen glands or hoarseness Endo Endocrine: No thyroid disease, diabetes mellitus, thyroid cancer, Hair loss, heat intolerance or cold intolerance Skin Skin: Yes rash; no changing moles Breast Breast: No left breast lump, right breast lump, nipple discharge, breast pain, abnormal mammogram, abnormal US or breast enlargement Musc Musculoskeletal: Yes back problems, arthritis and gout; no rheumatoid arthritis or joint pain Cardio Cardiovascular: Yes high blood pressure; no murmur, pacemaker, heart disease, atrial fibrillation, heart attack, heart stent, palpitations, shortness of breat with exertion or chest pain Psych Psychiatric: Yes depression and anxiety; no hearing voices Resp Respiratory: No shortness of breath, No sleep apnea, No cough, No COPD, No asthma, No emphysema, No wheezing Gastro Gastrointestinal: No abdominal pain, No nausea or vomiting, No diarrhea, No constipation, No blood in stool, No acid reflux, No hemorrhoids, No ulcers, No gallbladder problem, No black,tarry stools Nathaniel Hematologic: No blood thinners, No blood disorders, No bleeding, Yes anemia, No blood clots Neuro Neurologic: No system reviewed and no additional complaints, except as docu, No as per HPI, No abnormal walking, No abnormal hearing, No abnormal movements, No abnormal speech, No behavioral changes, No burning sensations, No confusion, No seizure-like activity, No unsteadiness, No dizziness, No localized weakness, No frequent falls, No headache(s), No lack of coordination, No loss of vision, No memory loss, No numbness, No other visual disturbances, No radiating pain, No restless legs, No sensory deficit, No fainting, No tingling, No tremor(s), No weakness, No other Exam Const General: cooperative, comfortable, no acute distress Chest Breast Palpation: No nipple discharge Resp Effort & Inspection: normal respiratory effort Cardio Rate: regular rate Heart Sounds: no murmurs GI Inspection: non-distended, scar (Right lower quadrant open appy scar, Pfannenstiel scar.well-healed) Palpation: soft, no guarding, nontender Assessment & Plan Problems 1. Anemia, unspecified type D64.9 Plan I have discussed the above with the patient. I have offered the patient EGD and colonoscopy for evaluation. I have explained the risks/benefits of the procedure and described the procedure. I have discussed the risks with the patient, including but not limited to: infection, bleeding, perforation of the GI tract requiring emergency surgery, inability to complete the procedure, injury to any internal organs, complications of anesthesia, etc. - the patient understands and agrees to proceed. I have answered all the patient's questions to the patient's satisfaction and the patient has no further questions. The patient has been given instructions for the colon cleansing preparation. 1 day of clears, MiraLAX Dulcolax split prep Khadijah Zelaya M.D. Pager: [phone] [facility] [address] [place] [address], [address] [place] [address] Office: [phone] Orders Orders: Colonoscopy 06/01/18 EGD 06/01/18 Plan Detail Follow Up We will schedule EGD and colonoscopy Coding Level of Care Code Off vis,est,level 3 Diagnoses Anemia, unspecified type D64.9 ??Anemia type: unspecified type Update: 06/20/2018 10 AM I have re-examined the patient. There are no clinical changes since date of exam. Patient still denies any blood in her stool or black tarry stools, patient states she is having dark brown stools and is on iron.
[2018-06-20] VITALS (7 sets, daily range): BP systolic 135–159; BP diastolic 67–86; PULSE 62–68; RESP 16; TEMP 36.1–36.5; O2SAT 97–100; BMI 29.3
--- NOTE | 2018-06-20 | GASB_PTH ---
PATIENT: TERESA GREWAL LOC: EN U#:[id number] AGE/SX: 68/F ROOM: RE06/20/[address]: Dr. Khadijah Zelaya MD : 1950 BED: DIS: 06/20/2018 SPEC #: [id number] RECD: 06/20/18 14:36 STATUS: JIMMY NANETTE #: [id number] MYRIAM: 06/20/18 00:[address]: Khadijah Zelaya DEPT: SURGICAL PATHOLOGY RECD BY: Loco Soliz ENTERED: 06/21/18 12:08 SP TYPE: Gastric Bx OTHR DR: Dr. Toño Cobian MD Tissues: A - Gastric mucous membrane B - Gastric mucous membrane C - Transverse colon D - Descending colon Procedures: Special Stain Group II Surgery Specimen Level IV Alcian Blue/PAS (control) HEADER OPERATION: [place] PRE-OP DIAGNOSIS: Anemia TISSUE SUBMITTED: A - Antrum biopsy for H. pylori and path, B - GE junction biopsy, C - Proximal transverse colon polyp, D - Descending colon polyp MICROSCOPIC DIAGNOSIS A. Antrum biopsy: Mild gastritis. See microscopic description and comment. B. GE junction, biopsy: A fragment of gastroesophageal mucosa with chronic inflammation. Intestinal metaplasia (goblet cell metaplasia) is not identified. See comment. C. Proximal transverse colon polyp, biopsy: Fragments of tubular adenoma. D. Descending colon polyp, biopsy: Consistent with inflammatory polyp. Fragments of fecal material. SJ:lucio 06/22/18 COMMENT A. The results of immunohistochemistry for Helicobacter pylori will be reported separately ([id number]). B. Alcian blue/PAS stain with matched control is used in the evaluation of the specimen. MICROSCOPIC DESCRIPTION Slides are reviewed. A. The specimen shows fragments of gastric mucosa with chronic inflammatory cell infiltrates in the lamina propria consisting of lymphocytes and plasma cells, consistent with mild chronic gastritis. GROSS DESCRIPTION A - Received in fixative is one container labeled with the patient's name and designated antrum biopsy. The specimen consists of one irregular fragment of light hines soft tissue that measures 0.3 x 0.3 x 0.1 cm. The specimen is totally submitted in one cassette. B - Received in fixative is one container labeled with the patient's name and designated GE junction biopsy. The specimen consists of one irregular fragment of light hines soft tissue that measures 0.3 x 0.3 x 0.1 cm. The specimen is totally submitted in one cassette. C - Received in fixative is one container labeled with the patient's name and designated polyp of proximal transverse colon. The specimen consists of one irregular fragment of light hines soft tissue that measures 0.3 x 0.3 x 0.1 cm. Also present in the container is a minute fragment measuring <0.1 cm in greatest dimension. The entire specimen is submitted in one cassette. D - Received in fixative is one container labeled with the patient's name and designated descending colon polyp. The specimen consists of multiple irregular fragments of hines soft tissue mixed with fecal material that in aggregate measure 1.5 x 0.5 x 0.1 cm. The specimen is totally submitted in one cassette. / SJ:rg 06/21/18 TC:1 CPT: 31333 x4, 58654
--- NOTE | 2018-06-20 11:03 | OP.ENDO_ITS ---
06/20/2018 To[address] [place] [address] Re : Upper GI endoscopy procedure for Peggy Corona Dear Dr. Cobian This procedure was performed on Wednesday, June 20, 2018. My impressions and recommendations are as follows: Impressions : - Z-line irregular, 36 cm from the incisors. Biopsied. - Erythematous mucosa in the antrum. Biopsied. - Normal examined duodenum. Recommendations : - Await pathology results. - Continue present medications. My findings are described in the full procedure note, which is enclosed. If I can be of further assistance, please feel free to contact me at Doctor phone number(s): , Work: . Sincerely, MD Khadijah Lewis MD 06/20/2018 11:03:22 AM This report has been signed electronically.
--- NOTE | 2018-06-20 11:13 | OP.ENDO_ITS ---
06/20/2018 Toño Cobian [address] [place] [id number] Re : Colonoscopy procedure for Peggy Corona Dear Dr. Cobian This procedure was performed on Wednesday, June 20, 2018. My impressions and recommendations are as follows: Impressions : - Hemorrhoids found on perianal exam. - Two 3 to 6 mm polyps in the descending colon and in the proximal ascending colon, removed with a hot snare. Resected and retrieved. - Diverticulosis in the sigmoid colon, in the descending colon and in the transverse colon. - Non-bleeding internal hemorrhoids. Recommendations : - Discharge patient to home. - Continue present medications. - Await pathology results. - Repeat colonoscopy in 3 - 5 years for surveillance based on pathology results. My findings are described in the full procedure note, which is enclosed. If I can be of further assistance, please feel free to contact me at Doctor phone number(s): , Work: . Sincerely, MD Khadijah Lewis MD 06/20/2018 11:13:30 AM This report has been signed electronically.
--- NOTE | 2018-06-21 10:15 | IMM_PTH ---
PATIENT: TERESA GREWAL LOC: EN U#:[id number] AGE/SX: 68/F ROOM: RE06/20/[address]: Dr. Khadijah Zelaya MD : 1950 BED: DIS: 06/20/2018 SPEC #: [id number] RECD: 06/22/18 10:44 STATUS: JIMMY REQ #: [id number] MYRIAM: 06/21/18 10:[address]: Khadijah Zelaya DEPT: IMMUNOHISTOCHEMISTRY RECD BY: Anahi Hart ENTERED: 06/22/18 10:45 SP TYPE: IMMUNO OTHR DR: Dr. Toño Cobian MD Tissues: A - Stomach, NOS Procedures: H Pylori (initial) PHYSICIAN & INSTITUTION [place] [address] SPECIMEN INFORMATION: Tissue Source: A - Antrum biopsy Clinical Info: Anemia Specimen Number: [id number] CPT code: 68606 METHODOLOGY: Deparaffinized sections of prefer/formalin-fixed tissue or PAP/DQ stained slides are incubated with monoclonal/polyclonal antibodies/oligonucleotide probes. Localization is made via biotin free immunoperoxidase method. Appropriate controls are performed and reacted as expected. Results on target cell population are indicated in the following table: RESULTS: ANTIBODY / CLONE RESULT Block A H Pylori (polyclonal) negative These tests were developed and their performance characteristics determined by [facility]. They may not have been cleared or approved by the U.S. Food and Drug Administration. The FDA has determined that such clearance or approval is not necessary. INTERPRETATION: A. Antrum, biopsy: Negative for Helicobacter pylori organisms. SJ:lucio 06/22/18
== END 2018-06-20 11:51 | disposition home or self-care (01) ==
LOC: EN 09:02 → AC 09:03
PROVIDERS: Family Provider Family Medicine; PCP Family Medicine; Referring Provider Surgery; Visit Provider Surgery
PROC: 0DJD8ZZ Inspection of Lower Intestinal Tract, Via Natural or Artificial Opening Endoscopic (ICD-10-PCS; CPT 45378; principal; 2018-06-20 10:10)
DX: D12.4 Benign neoplasm of descending colon (principal); D12.3 Benign neoplasm of transverse colon; K57.30 Diverticulosis of large intestine without perforation or abscess without bleeding; K44.9 Diaphragmatic hernia without obstruction or gangrene; D50.9 Iron deficiency anemia, unspecified; K22.8 Other specified diseases of esophagus; K31.89 Other diseases of stomach and duodenum; K64.8 Other hemorrhoids; I11.0 Hypertensive heart disease with heart failure; I50.9 Heart failure, unspecified; M19.90 Unspecified osteoarthritis, unspecified site; F32.9 Major depressive disorder, single episode, unspecified; F41.9 Anxiety disorder, unspecified; Z78.0 Asymptomatic menopausal state; Z79.899 Other long term (current) drug therapy; Z87.01 Personal history of pneumonia (recurrent)
CPT/HCPCS: 43239; 45385; 88305; 88313; 88342; J7120

== ENCOUNTER → 2018-07-12 08:26 | Outpatient (CLI) | payer MEDICARE, OTHER, SELFPAY ==
[2018-06-20 09:22] VITALS: BMI 29.3
[2018-07-12 10:20] LABS: Hematocrit 39.3 % (37-47); Hemoglobin 12.4 g/dl (12.0-15.0); Mean Corp Hgb Conc 31.6 g/gl (32-36); Mean Corpuscular Hgb 25.6 pg (27.0-32.0); Mean Platelet Vol. 10.7 fl (6.2-12.0); Platelet Count 377 K/mm3 (150-450); RBC Distribution Width CV 25.3 % (11.6-14.6); RBC Distribution Width SD 70.4 fl (35.1-43.9); Red Blood Count 4.85 M/mm3 (4.2-5.4); White Blood Count 6.6 K/mm3 (4.4-11.0)
[2018-07-12 10:21] LABS: Scan Indicated on CBC? Y/N YES- FLAGS NOTED
[2018-07-12 10:42] LABS: Differential Comment SCANNED
== END ==
PROVIDERS: Family Provider Family Medicine; PCP Family Medicine; Referring Provider Family Medicine; Visit Provider Family Medicine
DX: I10 Essential (primary) hypertension (principal)
CPT/HCPCS: 36415; 85027

== ENCOUNTER → 2019-01-25 10:29 | Outpatient (CLI) | payer MEDICARE, OTHER, SELFPAY ==
[2018-06-20 09:22] VITALS: BMI 29.3
[2019-01-25 12:39] LABS: Absolute Lymphocyte Count 1.83 X10^3/uL (0.83-4.51); Absolute Neutrophil Count 4.9 X10^3/uL (2.0-7.7); Basophil# 0.09 X10^3/uL; Basophil% 1.2 % (0-1); Eosinophils% 5.1 % (0-5); Hematocrit 43.9 % (37-47); Hemoglobin 13.8 g/dL (12.0-15.0); Lymphocyte # 1.83 X10^3/ul (4.0); Lymphocyte % 23.5 % (19-41); Mean Corp Hgb Conc 31.4 g/dL (32-36); Mean Corpuscular Hgb 29.2 pg (27.0-32.0); Mean Corpuscular Volume 92.8 fL (81-99); Mean Platelet Vol. 11.1 fl (6.2-12.0); Monocyte# 0.53 X10^3/uL; Monocyte% 6.8 % (0-10); NRBC Flagged by Analyzer 0 % (0-5); Neutrophil # 4.93 X10^3/uL (2.7-7.7); Neutrophil % 63.1 % (47-70); Platelet Count 424 K/mm3 (150-450); RBC Distribution Width CV 14.4 % (11.6-14.6); RBC Distribution Width SD 48.9 fl (35.1-43.9); Red Blood Count 4.73 M/mm3 (4.2-5.4); White Blood Count 7.8 K/mm3 (4.4-11.0)
[2019-01-25 13:12] LABS: ALB/GLOB Ratio 0.8 RATIO (0.9-2.4); AST(SGOT) 23 U/L (15-37); Alanine Aminotransfer ALT/SGPT 28 U/L (13-56); Albumin, Serum 3.7 g/dL (3.2-5.0); Alkaline Phosphatase 187 U/L (45-117); Anion Gap 6 (5-15); BUN 25 mg/dL (7-18); BUN/Creat Ratio 20.3 RATIO (10-20); Calcium,Total 9.2 mg/dL (8.5-10.1); Chloride 110 mmol/L (98-107); Cholesterol 175 mg/dL (200); Creatinine, Serum 1.23 mg/dL (0.55-1.02); EST Glomerular Filtration Rate 46 mL/min (>60); Est Glom Filt Rate - Afr Amer 56 mL/min (>60); Ferritin 41 ng/mL (8-252); Globulin 4.7 g/dL (2.2-4.2); Glucose 93 mg/dL (74-106); High Density Lipoprotein 48 mg/dL; Potassium 4.6 mmol/L (3.5-5.1); Protein, Total 8.4 g/dL (6.4-8.2); Sodium Level 138 mmol/L (136-145); Triglycerides 124 mg/dL; Very Low Density Lipoprotein 25 mg/dL (5-40)
== END ==
PROVIDERS: Family Provider Family Medicine; PCP Family Medicine; Referring Provider Family Medicine; Visit Provider Family Medicine
DX: I10 Essential (primary) hypertension (principal); D50.0 Iron deficiency anemia secondary to blood loss (chronic)
CPT/HCPCS: 36415; 80053; 80061; 82728; 85025

== ENCOUNTER → 2019-03-02 10:01 | Outpatient (CLI) | payer MEDICARE, OTHER, SELFPAY ==
[2018-06-20 09:22] VITALS: BMI 29.3
[2019-03-06 16:07] LABS: PROEL- A/G Ratio 0.8 (0.7-1.7); PROEL- Albumin 3.4 g/dL (2.9-4.4); PROEL- Alpha-1 Globulin 0.3 g/dL (0.0-0.4); PROEL- Alpha-2 Globulin 0.9 g/dL (0.4-1.0); PROEL- Beta Globulin 1.5 g/dL (0.7-1.3); PROEL- Gamma Globulin 1.5 g/dL (0.4-1.8); PROEL- Globulin, Total 4.1 g/dL (2.2-3.9); PROEL- TOTAL PROTEIN 7.5 g/dL (6.0-8.5); PROELU- Alpha-1-Globulin,Ur 4.1 % (.); PROELU- Alpha-2-Globulin,Ur 16.4 % (.); PROELU- Beta Globulin, Ur 24.1 % (.); PROELU- Gamma Globulin, Ur 15.5 % (.); Total Protein, Ur 23.6 mg/dL (Not Estab.)
== END ==
PROVIDERS: Family Provider Family Medicine; PCP Family Medicine; Referring Provider Family Medicine; Visit Provider Family Medicine
DX: R77.1 Abnormality of globulin (principal)
CPT/HCPCS: 36415; 84165; 84166

== ENCOUNTER → 2019-10-31 09:52 | Outpatient (CLI) | payer MEDICARE, OTHER, SELFPAY ==
[2018-06-20 09:22] VITALS: BMI 29.3
[2019-10-31 12:41] LABS: ALB/GLOB Ratio 0.7 RATIO (0.9-2.4); AST(SGOT) 23 U/L (15-37); Alanine Aminotransfer ALT/SGPT 22 U/L (13-56); Albumin, Serum 3.2 g/dL (3.2-5.0); Alkaline Phosphatase 173 U/L (45-117); Anion Gap 7 (5-15); BUN 28 mg/dL (7-18); BUN/Creat Ratio 24.8 RATIO (10-20); Calcium,Total 9.2 mg/dL (8.5-10.1); Chloride 109 mmol/L (98-107); Cholesterol 182 mg/dL (200); Creatinine, Serum 1.13 mg/dL (0.55-1.02); EST Glomerular Filtration Rate 51 mL/min (>60); Est Glom Filt Rate - Afr Amer 61 mL/min (>60); Globulin 4.3 g/dL (2.2-4.2); Glucose 97 mg/dL (74-106); High Density Lipoprotein 49 mg/dL; Potassium 4.1 mmol/L (3.5-5.1); Protein, Total 7.5 g/dL (6.4-8.2); Sodium Level 140 mmol/L (136-145); Triglycerides 120 mg/dL; Very Low Density Lipoprotein 24 mg/dL (5-40)
== END ==
PROVIDERS: PCP Family Medicine; Referring Provider Family Medicine; Visit Provider Family Medicine
DX: I10 Essential (primary) hypertension (principal); E78.00 Pure hypercholesterolemia, unspecified
CPT/HCPCS: 36415; 80053; 80061

== ENCOUNTER → 2019-11-03 13:21 | Outpatient (CLI) | payer MEDICARE, OTHER, SELFPAY ==
[2018-06-20 09:22] VITALS: BMI 29.3
[2019-11-06 20:07] LABS: PROEL- A/G Ratio 0.9 (0.7-1.7); PROEL- Albumin 3.5 g/dL (2.9-4.4); PROEL- Alpha-1 Globulin 0.3 g/dL (0.0-0.4); PROEL- Alpha-2 Globulin 1.2 g/dL (0.4-1.0); PROEL- Beta Globulin 1.1 g/dL (0.7-1.3); PROEL- Gamma Globulin 1.4 g/dL (0.4-1.8); PROEL- Globulin, Total 3.9 g/dL (2.2-3.9); PROEL- TOTAL PROTEIN 7.4 g/dL (6.0-8.5)
== END ==
PROVIDERS: PCP Family Medicine; Referring Provider Family Medicine; Visit Provider Family Medicine
DX: E88.09 Other disorders of plasma-protein metabolism, not elsewhere classified (principal)
CPT/HCPCS: 36415; 84165

== ENCOUNTER → 2020-04-17 09:12 | Outpatient (CLI) | payer MEDICARE, OTHER, SELFPAY ==
[2018-06-20 09:22] VITALS: BMI 29.3
[2020-04-17 10:32] LABS: Absolute Lymphocyte Count 1.93 X10^3/uL (0.83-4.51); Absolute Neutrophil Count 6.6 X10^3/uL (2.0-7.7); Eosinophil# 0.41 X10^3/uL; Eosinophils% 4.2 % (0-5); Hematocrit 37.3 % (37-47); Lymphocyte # 1.93 X10^3/ul (4.0); Lymphocyte % 19.6 % (19-41); Mean Corp Hgb Conc 29.5 g/dL (32-36); Mean Corpuscular Volume 81.4 fL (81-99); Mean Platelet Vol. 11.1 fl (6.2-12.0); Monocyte# 0.75 X10^3/uL; Monocyte% 7.6 % (0-10); NRBC Flagged by Analyzer 0 % (0-5); Neutrophil # 6.62 X10^3/uL (2.7-7.7); Neutrophil % 67.4 % (47-70); Platelet Count 514 K/mm3 (150-450); RBC Distribution Width CV 15.4 % (11.6-14.6); RBC Distribution Width SD 45.1 fl (35.1-43.9); Red Blood Count 4.58 M/mm3 (4.2-5.4); White Blood Count 9.8 K/mm3 (4.4-11.0)
[2020-04-17 10:52] LABS: ALB/GLOB Ratio 0.8 RATIO (0.9-2.4); AST(SGOT) 20 U/L (15-37); Alanine Aminotransfer ALT/SGPT 28 U/L (13-56); Albumin, Serum 3.6 g/dL (3.2-5.0); Alkaline Phosphatase 196 U/L (45-117); Anion Gap 8 (5-15); BUN 17 mg/dL (7-18); BUN/Creat Ratio 13.3 RATIO (10-20); Chloride 106 mmol/L (98-107); Cholesterol 167 mg/dL (200); Creatinine, Serum 1.28 mg/dL (0.55-1.02); EST Glomerular Filtration Rate 44 mL/min (>60); Est Glom Filt Rate - Afr Amer 53 mL/min (>60); Globulin 4.6 g/dL (2.2-4.2); Glucose 104 mg/dL (74-106); High Density Lipoprotein 55 mg/dL; Potassium 3.5 mmol/L (3.5-5.1); Protein, Total 8.2 g/dL (6.4-8.2); Sodium Level 138 mmol/L (136-145); Triglycerides 94 mg/dL; Very Low Density Lipoprotein 19 mg/dL (5-40)
[2020-04-18 16:09] LABS: PROEL- A/G Ratio 0.9 (0.7-1.7); PROEL- Albumin 3.7 g/dL (2.9-4.4); PROEL- Alpha-1 Globulin 0.2 g/dL (0.0-0.4); PROEL- Alpha-2 Globulin 0.9 g/dL (0.4-1.0); PROEL- Beta Globulin 1.3 g/dL (0.7-1.3); PROEL- Gamma Globulin 1.4 g/dL (0.4-1.8); PROEL- Globulin, Total 3.9 g/dL (2.2-3.9); PROEL- TOTAL PROTEIN 7.6 g/dL (6.0-8.5)
== END ==
PROVIDERS: PCP Family Medicine; Referring Provider Family Medicine; Visit Provider Family Medicine
DX: E88.09 Other disorders of plasma-protein metabolism, not elsewhere classified (principal); E78.00 Pure hypercholesterolemia, unspecified
CPT/HCPCS: 36415; 80053; 80061; 84165; 85025

== ENCOUNTER 2020-04-25 06:12 | Outpatient (RCR) | payer MEDICARE, OTHER, SELFPAY ==
[2018-06-20 09:22] VITALS: BMI 29.3
[2020-04-25] MEDS: COVID-19 VACC, MRNA(PFIZER)/PF 30 MCG/0.3 ML SYRINGE IM (16:20)
[2020-05-16] MEDS: COVID-19 VACC, MRNA(PFIZER)/PF 30 MCG/0.3 ML SYRINGE IM (15:55)
== END 2020-07-30 23:59 ==
LOC: IMMUN 06:12
PROVIDERS: PCP Family Medicine; Referring Provider Family Medicine; Visit Provider Family Medicine
DX: Z23 Encounter for immunization (principal)
CPT/HCPCS: 0001A; 0002A; 91300

== ENCOUNTER → 2020-06-10 16:52 | Outpatient (CLI) | payer MEDICARE, OTHER, SELFPAY ==
[2018-06-20 09:22] VITALS: BMI 29.3
[2020-06-10 17:57] LABS: Absolute Neutrophil Count 6.7 X10^3/uL (2.0-7.7); Basophil# 0.09 X10^3/uL; Basophil% 0.8 % (0-1); Eosinophil# 0.75 X10^3/uL; Eosinophils% 7.1 % (0-5); Hematocrit 32.8 % (37-47); Hemoglobin 9.3 g/dL (12.0-15.0); Lymphocyte % 22.6 % (19-41); Mean Corp Hgb Conc 28.4 g/dL (32-36); Mean Corpuscular Hgb 22.3 pg (27.0-32.0); Mean Corpuscular Volume 78.7 fL (81-99); Mean Platelet Vol. 10.8 fl (6.2-12.0); Monocyte% 6.6 % (0-10); NRBC Flagged by Analyzer 0 % (0-5); Neutrophil # 6.66 X10^3/uL (2.7-7.7); Neutrophil % 62.6 % (47-70); Platelet Count 551 K/mm3 (150-450); RBC Distribution Width CV 17.4 % (11.6-14.6); RBC Distribution Width SD 49.5 fl (35.1-43.9); RET-HE 21.5 pg (30-35); Red Blood Count 4.17 M/mm3 (4.2-5.4); Reticulocyte Count 1.65 % (0.5-1.5); White Blood Count 10.6 K/mm3 (4.4-11.0)
[2020-06-10 19:35] LABS: ALB/GLOB Ratio 0.7 RATIO (0.9-2.4); AST(SGOT) 18 U/L (15-37); Alanine Aminotransfer ALT/SGPT 23 U/L (13-56); Albumin, Serum 3.1 g/dL (3.2-5.0); Alkaline Phosphatase 179 U/L (45-117); Anion Gap 6 (5-15); BUN 16 mg/dL (7-18); BUN/Creat Ratio 14.3 RATIO (10-20); Calcium,Total 8.6 mg/dL (8.5-10.1); Chloride 105 mmol/L (98-107); Creatinine, Serum 1.12 mg/dL (0.55-1.02); EST Glomerular Filtration Rate 51 mL/min (>60); Est Glom Filt Rate - Afr Amer 62 mL/min (>60); Ferritin 6 ng/mL (8-252); Globulin 4.5 g/dL (2.2-4.2); Glucose 87 mg/dL (74-106); Iron 35 ug/dL (50-170); Iron Binding Capacity,Total 517 ug/dL (250-450); PERCENT IRON SATURATION 6.8 % (15.0-55.0); Potassium 3.7 mmol/L (3.5-5.1); Protein, Total 7.6 g/dL (6.4-8.2); Sodium Level 139 mmol/L (136-145); Thyroid Stim Hormone (TSH) 1.85 uIU/mL (0.358-3.74)
[2020-06-11 09:06] LABS: Vitamin B12 309 pg/mL (211-911)
== END ==
PROVIDERS: PCP Family Medicine; Visit Provider Family Medicine
DX: D64.9 Anemia, unspecified (principal); R53.83 Other fatigue
CPT/HCPCS: 36415; 80053; 82306; 82607; 82728; 82746; 83540; 83550; 84443; 85025; 85045

== ENCOUNTER 2020-08-13 20:13 | Inpatient (IN) | payer MEDICARE, OTHER, SELFPAY ==
[2020-07-15 12:58] VITALS: BMI 29.3
[2020-08-13 20:16] VITALS: BP 128/45; PULSE 93; RESP 18; TEMP 36.4; O2SAT 93; BMI 36.4
--- NOTE | 2020-08-13 20:18 | CT_ITS ---
INDICATION: abdominal pain EXAMINATION: CT Abdomen And Pelvis W/ Contrast Injection TECHNIQUE: Helically acquired images were obtained of the abdomen and pelvis after IV contrast. A radiation dose optimization technique was used for this scan. IV Contrast dosage and agent: IV 75mL [id number]-370 Oral contrast: None. COMPARISON: None. FINDINGS: Visualized lung bases: Bibasilar atelectasis. Liver: Unremarkable Gallbladder: Large 2.4 cm solitary stone in the neck of the gallbladder. Spleen: Unremarkable Pancreas: Unremarkable Adrenal Glands: Unremarkable Kidneys: 2.8 cm simple cyst in the right upper pole. Other scattered subcentimeter hypodensities bilaterally are too small characterize. Vasculature: Mild scattered aortoiliac atherosclerotic calcifications. GI Tract: Extensive diverticula throughout the colon without evidence of inflammation. The colon is filled with fluid. Large hiatal hernia. Lymphadenopathy: None Peritoneum: No ascites. Bladder: Unremarkable Reproductive organs: Unremarkable Bones/Soft tissues: Mild scattered degenerative changes of the visualized spine. Levoscoliosis. CT/Abdomen/Pelvis W IV Cont ONLY IMPRESSION: Large hiatal hernia. Diverticulosis. Cholelithiasis. Electronically Signed: Lucian Bustillo MD at 21:27 EDT Tel , Service support ,
--- NOTE | 2020-08-13 20:18 | EKG12_ITS ---
Test Reason : DYSRYTHMIA Blood Pressure : / mmHG Vent. Rate : 093 BPM Atrial Rate : 093 BPM P-R Int : 168 ms QRS Dur : 090 ms QT Int : 400 ms P-R-T Axes : 050 -16 057 degrees QTc Int : 497 ms Normal sinus rhythm Left ventricular hypertrophy Inferior infarct , age undetermined Poor R wave progression ST-Segment Abnormality: Consider LVH Repolarization; Myocardial Ischemia; Metabolic Effect; Medicatio n Effect Abnormal ECG Confirmed by LITZY MALHOTRA, KARLI ([id number]), publishing editor MARLENE DIAZ ([id number]) on 08/15/2020 12:28:24 PM Referred By: ROSANA Confirmed By:KARLI MCGHEE MD
--- NOTE | 2020-08-13 20:21 | EX.ED.GENINJ ---
HPI History of Present Illness Chief Complaint: Nausea/Vomiting Narrative Narrative: 70-year-old female presents with concern for sudden onset of nausea and vomiting. States this began approximately 1 hour ago. Patient was currently prepping for colonoscopy. States she has upper epigastric pain. [place] that there may be a small amount of blood in her vomit. Denies any chest pain or shortness of breath. Feeling well prior. PFSH PFSH Medical History Anemia Anxiety Arthritis CAP (community acquired pneumonia) Depression Depression Difficulty swallowing Easy bruising Gastric reflux Gout History of back problems History of diverticulitis History of echocardiogram Hypertension Migraine headache Non-smoker Poison rich dermatitis Scoliosis Shortness of breath on exertion Home Medications venlafaxine 150 mg PO QHS 05/07/18 [History Last Taken Unknown] allopurinol 300 mg tablet 300 mg PO DAILY 06/01/18 [History Last Taken Unknown] ferrous sulfate 325 mg (65 mg iron) tablet 650 mg PO DAILY tab 06/01/18 [History Last Taken Unknown] verapamil 300 mg PO QHS 06/16/18 [History Last Taken 06/19/18 20:30] calcium citrate 200 mg calcium-vitamin D3 3.125 mcg (125 unit) tablet 1 tab PO DAILY 07/15/20 [History Last Taken Unknown] ipratropium bromide 17 mcg/actuation HFA aerosol inhaler 1 inh INHALATION DAILY PRN PRN 07/15/20 [History Last Taken Unknown] lisinopril 10 mg tablet 10 mg PO DAILY 07/15/20 [History Last Taken Unknown] Allergy/AdvReac Type Severity Reaction Status Date / Time propranolol [From Inderal LA] Allergy Mild PT UNSURE Verified 08/13/20 20:19 OF REACTION Family History Mother Breast cancer Hypertension Cancer skin cancer Father Diabetes Heart disease Hypertension Cancer skin cancer Brother Diabetes Surgical History Excision ectopic History of appendectomy History of colonoscopy History of foot surgery History of tubal ligation Social History Smoking Status: Never smoker alcohol intake: never substance use type: does not use ROS ROS ED Constitutional Constitutional ED: Denies chills, fever(s) or sweats Eyes Eyes: Denies blurry vision, change in vision or diplopia ENT ENT ED: Denies rhinorrhea or sore throat Cardiovascular Cardiovascular: Denies chest pain, orthopnea, palpitations or racing heartbeat Respiratory/Chest Respiratory/Chest: Denies cough, dyspnea, dyspnea on exertion, orthopnea or sputum Gastrointestinal Gastrointestinal: Reports abdominal pain, nausea and vomiting; Denies constipation, diarrhea or melena Genitourinary Genitourinary ED: Denies dysuria, hematuria or urinary frequency Musculoskeletal Musculoskeletal: Denies arthralgias, myalgias or neck pain Integumentary Denies rash Neurologic Neurologic: Denies headache(s), paresthesias or weakness Psychiatric Psychiatric: Denies anxiety or depression Hematologic/Lymphatic Hematologic/Lymphatic: Denies easy bleeding or easy bruising Allergic/Immunologic Allergic/Immunologic ED: Denies mouth swelling or tongue swelling EXAM Physical Exam Const Vital Signs: 08/13/20 20:16 08/13/20 21:16 08/13/20 22:15 Temperature 97.5 F L 97.5 F L 97.5 F L Temperature Source Temporal Oral Oral Pulse Rate 93 94 94 Respiratory Rate 18 18 19 H Blood Pressure 128/45 H 130/47 H 145/55 H Blood Pressure Mean 72 74 85 Pulse Ox 93 92 95 Oxygen Delivery Method Room Air Room Air Room Air 08/13/20 23:13 Temperature 97.8 F Temperature Source Oral Pulse Rate 92 Respiratory Rate 18 Blood Pressure 133/68 H Blood Pressure Mean 89 Pulse Ox 94 Oxygen Delivery Method Room Air Positive well nourished and well developed General Appearance ED: well developed HEENT Reports TM's clear and moist mucous membranes normocephalic and atraumatic Tympanic Membrane ED: Yes TM's clear Eyes PERRL and EOMs intact bilaterally Neck no lymphadenopathy, supple and no JVD Chest Wall inspection of chest normal Resp normal respiratory effort and clear to auscultation bilaterally Cardio regular rate, S1 normal heart sound, S2 normal heart sound and no murmurs Peripheral Pulses: pulses 2+ throughout GI soft to palpation and non-distended GI Narrative: Mild tenderness throughout. No rigidity. Back/Spine no CVA tenderness and no thoracic nor lumbar tenderness Extremity normal to inspection General Extremety ED: Negative for edema or tenderness General Extremity: Negative for edema Neuro oriented x3, CN's II-XII intact bilaterally and no sensory deficits noted Sensorium / Orientation: alert Motor Exam: strength 5/5 throughout Psych mental status grossly normal Skin no rashes or lesions noted MDM MDM MDM Narrative Medical decision making narrative: Patient vomiting upon arrival. Afebrile. Mild tenderness to her abdomen. Leukocytosis of 24.5. Lactic acid was added. Patient was given 2 L normal saline. Hypokalemia of 2.8. Magnesium normal. Patient ordered IV potassium. Lactic acidosis of 10. Patient was ordered another 1 L of normal saline to complete her 30 mL/kg fluid bolus. Patient started on Zosyn. CT of the abdomen shows cholelithiasis without fluid surrounding the gallbladder. No other intra-abdominal process. EKG does show some EKG changes in the lateral aspect but high-sensitivity troponin negative. Repeat EKG unchanged. Patient has no chest pain or shortness of breath. Gallbladder ultrasound confirms cholelithiasis without pericholecystic fluid or wall thickening. General surgeon Dr. Gallardo consulted who examined the patient at the bedside and felt she should be admitted to medicine and that she does not have surgical pathology at this time. Repeat troponin came back elevated. Patient continues to have no chest pain. Chest x-ray shows chronic changes with possible chronic effusion. Unchanged from previous. No hypoxemia or oxygen requirement. Spoke with hospitalist who is agreeable with admission to the intensive care unit. Lab Data Attestation: I reviewed the patient's lab results. Labs: Laboratory Results - last 24 hr 08/13/20 08/13/20 08/13/20 20:20 20:20 20:20 WBC 24.5 H RBC 4.82 Hgb 13.0 Hct 42.3 MCV 87.8 MCH 27.0 MCHC 30.7 L RDW Std Deviation 65.0 H RDW Coeff of Roselia 20.5 H Plt Count 463 H MPV 10.4 Immature Gran % (Auto) 0.700 Neut % (Auto) 89.1 H Lymph % (Auto) 8.0 L [place] % (Auto) 2.0 Eos % (Auto) 0.0 Baso % (Auto) 0.2 Absolute Neuts (auto) 21.8 H Absolute Lymphs (auto) 1.97 Nucleated RBC % 0 Differential Comment SEE COMMENT Platelet Estimate SLT INC Plt Morphology Comment LARGE RBC Morphology N CHROM Anisocytosis RARE Sodium 140 Potassium 2.8 L Chloride 106 Carbon Dioxide 14.0 L Anion Gap 20 H BUN 27 H Creatinine 1.89 H Estim Creat Clear Calc 22.58 Est GFR (MDRD) Af Amer 34 L Est GFR (MDRD) Non-Af 28 L BUN/Creatinine Ratio 14.3 Glucose 285 H Lactic Acid Calcium 9.2 Magnesium Total Bilirubin 0.40 AST 21 ALT 28 Alkaline Phosphatase 180 H Troponin I High Sens 28.6 Total Protein 8.0 Albumin 3.4 Globulin 4.6 H Albumin/Globulin Ratio 0.7 L Lipase 58 L Urine Color Urine Clarity Urine pH Ur Specific [place] Urine Protein Urine Glucose (UA) Urine Ketones Urine Occult Blood Urine Nitrite Urine Bilirubin Urine Urobilinogen Ur Leukocyte Esterase Urine RBC Urine WBC Ur Squamous Epith Cells Urine Bacteria Urine Mucus Acetone Level 08/13/20 08/13/20 08/13/20 20:20 21:10 21:40 WBC RBC Hgb Hct MCV MCH MCHC RDW Std Deviation RDW Coeff of [place] Plt Count MPV Immature Gran % (Auto) Neut % (Auto) Lymph % (Auto) [place] % (Auto) Eos % (Auto) Baso % (Auto) Absolute Neuts (auto) Absolute Lymphs (auto) Nucleated RBC % Differential Comment Platelet Estimate Plt Morphology Comment RBC Morphology Anisocytosis Sodium Potassium Chloride Carbon Dioxide Anion Gap BUN Creatinine Estim Creat Clear Calc Est GFR (MDRD) Af Amer Est GFR (MDRD) Non-Af BUN/Creatinine Ratio Glucose Lactic Acid 10.6 H* Calcium Magnesium 2.4 Total Bilirubin AST ALT Alkaline Phosphatase Troponin I High Sens Total Protein Albumin Globulin Albumin/Globulin Ratio Lipase Urine Color Nupur Urine Clarity Sl. Cloudy Urine pH 7.0 Ur Specific [place] 1.010 Urine Protein 30 H Urine Glucose (UA) Normal Urine Ketones 5 H Urine Occult Blood 25 H Urine Nitrite Negative Urine Bilirubin 1 H Urine Urobilinogen 4 H Ur Leukocyte Esterase 500 H Urine RBC 0-5 SEEN Urine WBC 25-50 SEEN Ur Squamous Epith Cells 0 SEEN Urine Bacteria 1+ Urine Mucus 0 SEEN Acetone Level 08/13/20 08/13/20 23:15 23:15 WBC RBC Hgb Hct MCV MCH MCHC RDW Std Deviation RDW Coeff of Roselia Plt Count MPV Immature Gran % (Auto) Neut % (Auto) Lymph % (Auto) [place] % (Auto) Eos % (Auto) Baso % (Auto) Absolute Neuts (auto) Absolute Lymphs (auto) Nucleated RBC % Differential Comment Platelet Estimate Plt Morphology Comment RBC Morphology Anisocytosis Sodium Potassium Chloride Carbon Dioxide Anion Gap BUN Creatinine Estim Creat Clear Calc Est GFR (MDRD) Af Amer Est GFR (MDRD) Non-Af BUN/Creatinine Ratio Glucose Lactic Acid Calcium Magnesium Total Bilirubin AST ALT Alkaline Phosphatase Troponin I High Sens 119.3 H* Total Protein Albumin Globulin Albumin/Globulin Ratio Lipase Urine Color Urine Clarity Urine pH Ur Specific [place] Urine Protein Urine Glucose (UA) Urine Ketones Urine Occult Blood Urine Nitrite Urine Bilirubin Urine Urobilinogen Ur Leukocyte Esterase Urine RBC Urine WBC Ur Squamous Epith Cells Urine Bacteria Urine Mucus Acetone Level NEGATIVE ABG Data ABG results: ABG 08/13/20 22:11 Specimen Type JUANITA VBG pH 7.20 L VBG pO2 97 H VBG HCO3 13 L VBG Total CO2 14 L VBG O2 Sat (Calc) 96 H VBG Base Excess -16 L POC Mix VBG pCO2 Pt Tmp 32.3 L O2 Delivery Device Room Air Crit Call To/Read Back Yes Blood Gas Notified Whom dr garrison Blood Gas Notified Time 22:13:23 Radiography Diagnostic Testing: Radiology Impression Abdomen/Pelvis CT 08/13/20 20:18 IMPRESSION: Large hiatal hernia. Diverticulosis. Cholelithiasis. Electronically Signed: Lucian Bustillo MD at 21:27 EDT Tel , Service support , Gallbladder Ultrasound 08/13/20 21:41 IMPRESSION: 1. 2.1 cm stone in the neck of the gallbladder. No wall thickening or pericholecystic fluid is seen Electronically Signed: Austen Paul MD at 23:18 EDT , Service support , Rhythm Strip Rhythm Strip: Sinus Rhythm Rate: 93 Ectopy: None EKG Initial EKG: Attestation: I personally reviewed and interpreted this EKG as follows: Interpretation: Sinus Rhythm Comments: Normal sinus rhythm at 93 bpm. TN interval of 168 ms. QTC of [address] depression in avL and lead I. Follow-up EKG: Attestation: I personally reviewed and interpreted this EKG as follows: Interpretation: Sinus Rhythm and No Acute Injury Pattern Comments: Normal sinus rhythm at 94 bpm. No changes from previous. Critical Care Time Critical Care Time: Yes Critical care time (excluding procedures): 75-104 minutes, Discussing w/Patient &/or Family/Stores Assistant, Discussing w/Consultants, Arranging Admission or Transfer and Performing Direct Patient Care at Bedside Discharge Plan Dx/Rx/DC Orders Clinical Impression: Septic shock, Lactic acidosis, Acute kidney injury, Acute UTI Disposition Disposition: Acute Care Hospital [facility]
[2020-08-13] MEDS: 0.9% Normal Saline 1,000 ML 1000 ML IV (20:24)
[2020-08-13] MEDS: Ondansetron 4 MG/2 ML Vial IV (20:26)
[2020-08-13 20:29] LABS: Absolute Lymphocyte Count 1.97 X10^3/uL (0.83-4.51); Absolute Neutrophil Count 21.8 X10^3/uL (2.0-7.7); Basophil# 0.05 X10^3/uL; Basophil% 0.2 % (0-1); Eosinophil# 0.01 X10^3/uL; Hematocrit 42.3 % (37-47); Lymphocyte # 1.97 X10^3/ul (0.83-4.51); Mean Corp Hgb Conc 30.7 g/dL (32-36); Mean Corpuscular Volume 87.8 fL (81-99); Mean Platelet Vol. 10.4 fl (6.2-12.0); NRBC Flagged by Analyzer 0 % (0-5); Neutrophil % 89.1 % (47-70); POSITIVE DIFFERENTIAL YES; POSITIVE MORPHOLOGY YES; Platelet Count 463 K/mm3 (150-450); RBC Distribution Width CV 20.5 % (11.6-14.6); Red Blood Count 4.82 M/mm3 (4.2-5.4); White Blood Count 24.5 K/mm3 (4.4-11.0)
[2020-08-13 20:30] LABS: Differential Indicated SCAN CRITERIA MET
[2020-08-13 20:47] LABS: ALB/GLOB Ratio 0.7 RATIO (0.9-2.4); AST(SGOT) 21 U/L (15-37); Alanine Aminotransfer ALT/SGPT 28 U/L (13-56); Albumin, Serum 3.4 g/dL (3.2-5.0); Alkaline Phosphatase 180 U/L (45-117); Anion Gap 20 (5-15); BUN 27 mg/dL (7-18); BUN/Creat Ratio 14.3 RATIO (10-20); Calcium,Total 9.2 mg/dL (8.5-10.1); Chloride 106 mmol/L (98-107); Creatinine, Serum 1.89 mg/dL (0.55-1.02); EST Glomerular Filtration Rate 28 mL/min (>60); Est Glom Filt Rate - Afr Amer 34 mL/min (>60); Estimated Creatinine Clearance 22.58 ml/min; Globulin 4.6 g/dL (2.2-4.2); Glucose 285 mg/dL (74-106); Potassium 2.8 mmol/L (3.5-5.1); Sodium Level 140 mmol/L (136-145); Troponin-I HS 28.6 pg/mL (3.0-53.7)
[2020-08-13 20:58] LABS: Anisocytosis RARE; Lipase 58 U/L (73-393); Platelet Estimate SLT INC (ADEQ); Platelet Morphology LARGE; Red Cell Morphology N CHROM NORMAL (NORM C&C)
[2020-08-13] MEDS: Potassium Chloride 10mEq/100mL 10 MEQ/100 ML IV.SOLN. 100 MEQ IV BOLUS ×3 (21:12→23:14)
[2020-08-13 21:16] VITALS: BP 130/47; PULSE 94; RESP 18; TEMP 36.4; O2SAT 92
[2020-08-13 21:18] LABS: Magnesium 2.4 mg/dL (1.6-2.6)
[2020-08-13] MEDS: proMETHazine 25 MG/ML Syringe 12.5 MG IM (21:18)
--- NOTE | 2020-08-13 21:41 | US_ITS ---
STUDY: ABDOMINAL ULTRASOUND - RIGHT UPPER QUADRANT REASON FOR VISIT: Female, 70 years old vomiting TECHNIQUE: Ultrasound evaluation of the right upper quadrant was performed with real-time and static horowitz-scale imaging. TECHNICAL QUALITY: Adequate. COMPARISON: CT of abdomen and pelvis dated AUGUST 13, 2020 FINDINGS: Liver: The liver measures 14.3 cm. There is normal echogenicity of the liver. The bile ducts are within normal limits. There is hepatic color flow. The direction of portal flow is hepatopetal. There is no demonstrated mass lesion. Gallbladder: Normal distended gallbladder. The gallbladder wall measures 3 mm. There is a negative sonographic Clifton''s sign. There is no pericholecystic fluid. A 2.1 cm stone is present and neck of the gallbladder. Common Bile Duct (C.B.D.): The common bile duct measures 3 mm. Pancreas: There is for visualization of the pancreas due to bowel gas, but the recent CT exam shows a normal pancreas. Right Kidney: Normal size of the right kidney. The right kidney measures 9.8 x 4.6 cm. Normal renal cortex. There is no demonstrated renal mass. Multiple renal cysts reidentified maximally measuring 3.6 cm. There is no right hydronephrosis. US/Gallbladder IMPRESSION: 1. 2.1 cm stone in the neck of the gallbladder. No wall thickening or pericholecystic fluid is seen Electronically Signed: Austen Paul MD at 23:18 EDT , Service support ,
[2020-08-13 21:49] LABS: Mucous, Urine 0 SEEN /hpf (<or=2+); Squamous Epithelial Cells - UA 0 SEEN /hpf (5-10)
[2020-08-13 22:15] VITALS: BP 145/55; PULSE 94; RESP 19; TEMP 36.4; O2SAT 95
[2020-08-13 22:15] LABS: Blood Gas Specimen Type VEN; O2 Delivery Device Room Air; VBG BASE EXCESS -16 mmol/L (-1.0-3.5); VBG Bicarbonate 13 mmol/L (22-26); VBG PO2 97 mmHg (25-40); VBG SO2 96 % (50-70); VBG TCO2 14 mmol/L (23-33); VBG pCO2 32.3 mmHg (41-51)
[2020-08-13 22:29] LABS: Lactic Acid 10.6 mmol/L (0.4-1.9)
[2020-08-13 22:31] LABS: Color, Urine Amber (Yellow); Glucose, Dipstick Normal (Normal); Ketone-Dipstick 5 mg/dl (Negative); Leukocyte Esterase-Dipstick 500 /ul (Negative); Nitrite-Dipstick Negative (Negative); Occult Blood-Urine 25 /ul (Negative); Protein-Dipstick 30 mg/dl (Negative); Urine Clarity Sl. Cloudy (Clear); Urine Urobilinogen 4 mg/dl (Normal)
[2020-08-13 22:37] LABS: Urine Bilirubin Dipstick 1 mg/dL (Negative)
[2020-08-13 22:39] LABS: Bacteria 1+ /hpf (None Seen); Red Blood Cells-Urine 0-5 SEEN /hpf (0-5); White Blood Cells 25-50 SEEN /hpf (0-5)
--- NOTE | 2020-08-13 22:43 | EKG12_ITS ---
Test Reason : REPEAT Blood Pressure : / mmHG Vent. Rate : 094 BPM Atrial Rate : 094 BPM P-R Int : 148 ms QRS Dur : 084 ms QT Int : 380 ms P-R-T Axes : 040 -19 077 degrees QTc Int : 475 ms Normal sinus rhythm Left ventricular hypertrophy Inferior infarct , age undetermined Poor R wave progression ST-Segment Abnormality: Consider LVH Repolarization; Myocardial Ischemia; Metabolic Effect; Medicatio n Effect Abnormal ECG Confirmed by LITZY MALHOTRA, KARLI ([id number]), editor in chief MARLENE DIAZ ([id number]) on 08/15/2020 12:29:12 PM Referred By: ROSANA Confirmed By:KARLI MCGHEE MD
[2020-08-13] MEDS: 0.9% Normal Saline 1,000 ML 999 ML IV (23:02)
--- NOTE | 2020-08-13 23:10 | EX.PCM.CON.S ---
Assessment & Plan Assessment/Plan (1) Lactic acidosis: (2) Acute kidney injury: PLAN: The patient has a markedly elevated white count but she was also started on steroids yesterday. The patient is also having an elevated lactate. I am unsure as to the etiology causing this. The patient has elevated creatinine and her urine is dark. Her abdominal pain is only a 5 out of 10 she reports it is not very severe. She says the nausea and vomiting started before the abdominal pain. She denies any chest pain or other abdominal pain. I reviewed her CT scan which was read as normal. She also had an ultrasound the gallbladder which shows cholelithiasis with no gallbladder thickening or pericholecystic fluid. I am unsure that she has any surgical issue in her abdomen at this time, she certainly does not have a surgical abdomen. She does not have pain out of proportion to exam and there is no guarding or severe abdominal pain. She has several electrolyte abnormalities. I recommend medical admission and work-up. Pt was scheduled for colonoscopy with Dr Zelaya in the morning and I will notify her that pt is in hospital in the morning. Will continue to follow. Jj Gallardo MD Pager: [facility] [address] [place] [address], [address] [place] [address] Office: HPI Consult Data Date of Consult: 08/13/20 HPI Narrative HPI Narrative: TERESA GREWAL, is a 70 F who presents with nausea and vomiting. The patient started a bowel prep for colonoscopy tomorrow. The patient is having a colonoscopy for iron deficiency anemia. About an hour before presentation she began having nausea and vomiting. She then started having some abdominal pain. She points to the right lower quadrant localizing her pain there and says it is about a 5 out of 10. She says her pain is not severe. She says palpation of the abdomen does not make the pain worse. She says mostly she feels like it is gas pain. She has not had any bowel movements since starting the prep. She continues to have nausea. She does not localize any other abdominal pain and does not have any other symptoms. Her urine is very dark in color. Patient states she was started on steroids yesterday for poison rich [facility] Medical History Anemia Anxiety Arthritis CAP (community acquired pneumonia) Depression Depression Difficulty swallowing Easy bruising Gastric reflux Gout History of back problems History of diverticulitis History of echocardiogram Hypertension Migraine headache Non-smoker Poison rich dermatitis Scoliosis Shortness of breath on exertion Home Medications venlafaxine 150 mg PO QHS 05/07/18 [History Last Taken Unknown] allopurinol 300 mg tablet 300 mg PO DAILY 06/01/18 [History Last Taken Unknown] ferrous sulfate 325 mg (65 mg iron) tablet 650 mg PO DAILY tab 06/01/18 [History Last Taken Unknown] verapamil 300 mg PO QHS 06/16/18 [History Last Taken 06/19/18 20:30] calcium citrate 200 mg calcium-vitamin D3 3.125 mcg (125 unit) tablet 1 tab PO DAILY 07/15/20 [History Last Taken Unknown] ipratropium bromide 17 mcg/actuation HFA aerosol inhaler 1 inh INHALATION DAILY PRN PRN 07/15/20 [History Last Taken Unknown] lisinopril 10 mg tablet 10 mg PO DAILY 07/15/20 [History Last Taken Unknown] Allergy/AdvReac Type Severity Reaction Status Date / Time propranolol [From Inderal LA] Allergy Mild PT UNSURE Verified 08/13/20 20:19 OF REACTION Family History Mother Breast cancer Hypertension Cancer skin cancer Father Diabetes Heart disease Hypertension Cancer skin cancer Brother Diabetes Surgical History Excision ectopic History of appendectomy History of colonoscopy History of foot surgery History of tubal ligation Social History Smoking Status: Never smoker alcohol intake: never substance use type: does not use ROS Constitutional Constitutional: Denies anorexia, chills or fatigue Eyes Eyes: Denies blurry vision ENT HEENT: Denies abnormal hearing Cardiovascular Cardiovascular: Denies chest pain Respiratory/Chest Respiratory/Chest: Denies cough Gastrointestinal Gastrointestinal: Reports abdominal pain, nausea and vomiting; Denies dysphagia, hematemesis, hematochezia or melena Genitourinary Genitourinary: Denies change in urinary stream or hematuria Musculoskeletal Musculoskeletal: Denies abnormal gait Integumentary Integumentary: Denies jaundice Neurologic Neurologic: Denies dizziness Psychiatric Psychiatric: Denies anxiety Endocrine Endocrinology: Denies flushing Physical Exam Const alert General Appearance: ill appearing HEENT normocephalic Eyes PERRL Neck full ROM Resp normal respiratory effort Cardio Rate: regular rate Rhythm: regular rhythm GI soft to palpation and non-distended GI Narrative: The patient's abdomen is soft and nondistended with some mild tenderness in the right lower quadrant. There is no guarding or rebound. No pain in the upper abdomen. Palpation: tender Neuro CN's II-XII intact bilaterally Psych mental status grossly normal Lab / Micro Data Result Diagrams: 08/13/20 20:20 08/13/20 20:20 Labs: Laboratory Results - last 24 hr 08/13/20 08/13/20 08/13/20 20:20 20:20 20:20 WBC 24.5 H RBC 4.82 Hgb 13.0 Hct 42.3 MCV 87.8 MCH 27.0 MCHC 30.7 L RDW Std Deviation 65.0 H RDW Coeff of Roselia 20.5 H Plt Count 463 H MPV 10.4 Immature Gran % (Auto) 0.700 Neut % (Auto) 89.1 H Lymph % (Auto) 8.0 L [place] % (Auto) 2.0 Eos % (Auto) 0.0 Baso % (Auto) 0.2 Absolute Neuts (auto) 21.8 H Absolute Lymphs (auto) 1.97 Nucleated RBC % 0 Differential Comment SEE COMMENT Platelet Estimate SLT INC Plt Morphology Comment LARGE RBC Morphology N CHROM Anisocytosis RARE Sodium 140 Potassium 2.8 L Chloride 106 Carbon Dioxide 14.0 L Anion Gap 20 H BUN 27 H Creatinine 1.89 H Estim Creat Clear Calc 22.58 Est GFR (MDRD) Af Amer 34 L Est GFR (MDRD) Non-Af 28 L BUN/Creatinine Ratio 14.3 Glucose 285 H Lactic Acid Calcium 9.2 Magnesium Total Bilirubin 0.40 AST 21 ALT 28 Alkaline Phosphatase 180 H Troponin I High Sens 28.6 Total Protein 8.0 Albumin 3.4 Globulin 4.6 H Albumin/Globulin Ratio 0.7 L Lipase 58 L Urine Color Urine Clarity Urine pH Ur Specific [place] Urine Protein Urine Glucose (UA) Urine Ketones Urine Occult Blood Urine Nitrite Urine Bilirubin Urine Urobilinogen Ur Leukocyte Esterase Urine RBC Urine WBC Ur Squamous Epith Cells Urine Bacteria Urine Mucus 08/13/20 08/13/20 08/13/20 20:20 21:10 21:40 WBC RBC Hgb Hct MCV MCH MCHC RDW Std Deviation RDW Coeff of Roselia Plt Count MPV Immature Gran % (Auto) Neut % (Auto) Lymph % (Auto) [place] % (Auto) Eos % (Auto) Baso % (Auto) Absolute Neuts (auto) Absolute Lymphs (auto) Nucleated RBC % Differential Comment Platelet Estimate Plt Morphology Comment RBC Morphology Anisocytosis Sodium Potassium Chloride Carbon Dioxide Anion Gap BUN Creatinine Estim Creat Clear Calc Est GFR (MDRD) Af Amer Est GFR (MDRD) Non-Af BUN/Creatinine Ratio Glucose Lactic Acid 10.6 H* Calcium Magnesium 2.4 Total Bilirubin AST ALT Alkaline Phosphatase Troponin I High Sens Total Protein Albumin Globulin Albumin/Globulin Ratio Lipase Urine Color Nupur Urine Clarity Sl. Cloudy Urine pH 7.0 Ur Specific [place] 1.010 Urine Protein 30 H Urine Glucose (UA) Normal Urine Ketones 5 H Urine Occult Blood 25 H Urine Nitrite Negative Urine Bilirubin 1 H Urine Urobilinogen 4 H Ur Leukocyte Esterase 500 H Urine RBC 0-5 SEEN Urine WBC 25-50 SEEN Ur Squamous Epith Cells 0 SEEN Urine Bacteria 1+ Urine Mucus 0 SEEN ABG Data ABG results: ABG 08/13/20 22:11 Specimen Type JUANITA VBG pH 7.20 L VBG pO2 97 H VBG HCO3 13 L VBG Total CO2 14 L VBG O2 Sat (Calc) 96 H VBG Base Excess -16 L POC Mix VBG pCO2 Pt Tmp 32.3 L O2 Delivery Device Room Air Crit Call To/Read Back Yes Blood Gas Notified Whom dr garrison Blood Gas Notified Time 22:13:23 Radiology Impression Abdomen/Pelvis CT 08/13/20 20:18 IMPRESSION: Large hiatal hernia. Diverticulosis. Cholelithiasis. Electronically Signed: Lucian Bustillo MD at 21:27 EDT Tel , Service support ,
[2020-08-13 23:13] VITALS: BP 133/68; PULSE 92; RESP 18; TEMP 36.6; O2SAT 94
--- NOTE | 2020-08-13 23:49 | HP.PCM.HOS_ITS ---
HPI - General General Date of Admission: 08/13/20 Date of Service: 08/13/20 Chief Complaint: abdominal pain. N/V HPI Narrative TERESA GREWAL, is a 70 F who presents with acute onset of abdominal pain, and nausea and vomiting. Patient was about 1/2 way through a prep for colonoscopy on 08/14 when she developed these symptoms about 1 hour prior to arrival. Work-up in the emergency room was significant for a white count of 24.5, venous blood gas pH is 7.2, potassium of 2.8, a creatinine of 1.89, lactic acid of 10.6. Vital signs were stable but patient received 30 cc/kg of IV fluids and Pipracil and/tazobactam. Abdominal CT showed only a large hiatal hernia, diverticulosis and cholelithiasis. She did have an ultrasound of her gallbladder showed a 2.1 cm stone in the neck of the gallbladder but no wall thickening or pericholec ystic fluid seen. The emergency room physician reached out to Dr. Gallardo who did not feel there is any acute surgical issues at this time. [facility] Medical History Anemia Anxiety Arthritis CAP (community acquired pneumonia) Depression Depression Difficulty swallowing Easy bruising Gastric reflux Gout History of back problems History of diverticulitis History of echocardiogram Hypertension Migraine headache Non-smoker Poison rich dermatitis Scoliosis Shortness of breath on exertion Home Medications venlafaxine 150 mg PO QHS 05/07/18 [History Last Taken Unknown] allopurinol 300 mg tablet 300 mg PO DAILY 06/01/18 [History Last Taken Unknown] ferrous sulfate 325 mg (65 mg iron) tablet 650 mg PO DAILY tab 06/01/18 [History Last Taken Unknown] verapamil 300 mg PO QHS 06/16/18 [History Last Taken 06/19/18 20:30] calcium citrate 200 mg calcium-vitamin D3 3.125 mcg (125 unit) tablet 1 tab PO DAILY 07/15/20 [History Last Taken Unknown] ipratropium bromide 17 mcg/actuation HFA aerosol inhaler 1 inh INHALATION DAILY PRN PRN 07/15/20 [History Last Taken Unknown] lisinopril 10 mg tablet 10 mg PO DAILY 07/15/20 [History Last Taken Unknown] Allergy/AdvReac Type Severity Reaction Status Date / Time propranolol [From Inderal LA] Allergy Mild PT UNSURE Verified 08/13/20 20:19 OF REACTION Family History Mother Breast cancer Hypertension Cancer skin cancer Father Diabetes Heart disease Hypertension Cancer skin cancer Brother Diabetes Surgical History Excision ectopic History of appendectomy History of colonoscopy History of foot surgery History of tubal ligation Social History Smoking Status: Never smoker alcohol intake: never substance use type: does not use ROS ROS Narrative No fever or chills. No chest pain. No shortness of breath. No COVID-19 contacts. All review of systems were negative except as mentioned above in the history of present illness and the other review of systems. Constitutional Constitutional: Reports chills; Denies anorexia or fever(s) Cardiovascular Cardiovascular: Denies chest pain Respiratory/Chest Respiratory/Chest: Denies cough or dyspnea Gastrointestinal Gastrointestinal: Reports abdominal pain, nausea and vomiting; Denies constipation or diarrhea Vital Signs Vital Signs Vital Signs: 08/13/20 20:16 08/13/20 21:16 08/13/20 22:15 Temperature 36.4 C L 36.4 C L 36.4 C L Temperature Source Temporal Oral Oral Pulse Rate 93 94 94 Respiratory Rate 18 18 19 H Blood Pressure 128/45 H 130/47 H 145/55 H Blood Pressure Mean 72 74 85 Pulse Ox 93 92 95 Oxygen Delivery Method Room Air Room Air Room Air 08/13/20 23:13 Temperature 36.6 C Temperature Source Oral Pulse Rate 92 Respiratory Rate 18 Blood Pressure 133/68 H Blood Pressure Mean 89 Pulse Ox 94 Oxygen Delivery Method Room Air Weight Weight: 93.4 kg Body Mass Index (BMI) 36.4 Physical Exam Const alert Constitutional Narrative: Shivering General Appearance: cooperative HEENT normocephalic and head/scalp atraumatic Eyes Eyes Narrative: No scleral icterus Neck no lymphadenopathy and supple Resp normal respiratory effort and clear to auscultation bilaterally Cardio regular rate, regular rhythm, S1 normal heart sound and S2 normal heart sound GI normal to inspection, nondistended, normoactive bowel sounds, soft to palpation, non-tender and non-distended Extremity normal to inspection Neuro moves all extremities Neuro Narrative: No clonus Sensorium / Orientation: awake and alert Results Lab / Micro Data Result Diagrams: 08/13/20 20:20 08/13/20 20:20 Labs: Laboratory Results - last 24 hr 08/13/20 08/13/20 08/13/20 20:20 20:20 20:20 WBC 24.5 H RBC 4.82 Hgb 13.0 Hct 42.3 MCV 87.8 MCH 27.0 MCHC 30.7 L RDW Std Deviation 65.0 H RDW Coeff of Roselia 20.5 H Plt Count 463 H MPV 10.4 Immature Gran % (Auto) 0.700 Neut % (Auto) 89.1 H Lymph % (Auto) 8.0 L [place] % (Auto) 2.0 Eos % (Auto) 0.0 Baso % (Auto) 0.2 Absolute Neuts (auto) 21.8 H Absolute Lymphs (auto) 1.97 Nucleated RBC % 0 Differential Comment SEE COMMENT Platelet Estimate SLT INC Plt Morphology Comment LARGE RBC Morphology N CHROM Anisocytosis RARE Sodium 140 Potassium 2.8 L Chloride 106 Carbon Dioxide 14.0 L Anion Gap 20 H BUN 27 H Creatinine 1.89 H Estim Creat Clear Calc 22.58 Est GFR (MDRD) Af Amer 34 L Est GFR (MDRD) Non-Af 28 L BUN/Creatinine Ratio 14.3 Glucose 285 H Lactic Acid Calcium 9.2 Magnesium Total Bilirubin 0.40 AST 21 ALT 28 Alkaline Phosphatase 180 H Troponin I High Sens 28.6 Total Protein 8.0 Albumin 3.4 Globulin 4.6 H Albumin/Globulin Ratio 0.7 L Lipase 58 L Urine Color Urine Clarity Urine pH Ur Specific [place] Urine Protein Urine Glucose (UA) Urine Ketones Urine Occult Blood Urine Nitrite Urine Bilirubin Urine Urobilinogen Ur Leukocyte Esterase Urine RBC Urine WBC Ur Squamous Epith Cells Urine Bacteria Urine Mucus Acetone Level 08/13/20 08/13/20 08/13/20 20:20 21:10 21:40 WBC RBC Hgb Hct MCV MCH MCHC RDW Std Deviation RDW Coeff of Ros[place] Plt Count MPV Immature Gran % (Auto) Neut % (Auto) Lymph % (Auto) [place] % (Auto) Eos % (Auto) Baso % (Auto) Absolute Neuts (auto) Absolute Lymphs (auto) Nucleated RBC % Differential Comment Platelet Estimate Plt Morphology Comment RBC Morphology Anisocytosis Sodium Potassium Chloride Carbon Dioxide Anion Gap BUN Creatinine Estim Creat Clear Calc Est GFR (MDRD) Af Amer Est GFR (MDRD) Non-Af BUN/Creatinine Ratio Glucose Lactic Acid 10.6 H* Calcium Magnesium 2.4 Total Bilirubin AST ALT Alkaline Phosphatase Troponin I High Sens Total Protein Albumin Globulin Albumin/Globulin Ratio Lipase Urine Color Nupur Urine Clarity Sl. Cloudy Urine pH 7.0 Ur Specific [place] 1.010 Urine Protein 30 H Urine Glucose (UA) Normal Urine Ketones 5 H Urine Occult Blood 25 H Urine Nitrite Negative Urine Bilirubin 1 H Urine Urobilinogen 4 H Ur Leukocyte Esterase 500 H Urine RBC 0-5 SEEN Urine WBC 25-50 SEEN Ur Squamous Epith Cells 0 SEEN Urine Bacteria 1+ Urine Mucus 0 SEEN Acetone Level 08/13/20 23:15 WBC RBC Hgb Hct MCV MCH MCHC RDW Std Deviation RDW Coeff of [place] Plt Count MPV Immature Gran % (Auto) Neut % (Auto) Lymph % (Auto) [place] % (Auto) Eos % (Auto) Baso % (Auto) Absolute Neuts (auto) Absolute Lymphs (auto) Nucleated RBC % Differential Comment Platelet Estimate Plt Morphology Comment RBC Morphology Anisocytosis Sodium Potassium Chloride Carbon Dioxide Anion Gap BUN Creatinine Estim Creat Clear Calc Est GFR (MDRD) Af Amer Est GFR (MDRD) Non-Af BUN/Creatinine Ratio Glucose Lactic Acid Calcium Magnesium Total Bilirubin AST ALT Alkaline Phosphatase Troponin I High Sens Total Protein Albumin Globulin Albumin/Globulin Ratio Lipase Urine Color Urine Clarity Urine pH Ur Specific [place] Urine Protein Urine Glucose (UA) Urine Ketones Urine Occult Blood Urine Nitrite Urine Bilirubin Urine Urobilinogen Ur Leukocyte Esterase Urine RBC Urine WBC Ur Squamous Epith Cells Urine Bacteria Urine Mucus Acetone Level NEGATIVE ABG Data ABG results: ABG 08/13/20 22:11 Specimen Type JUANITA VBG pH 7.20 L VBG pO2 97 H VBG HCO3 13 L VBG Total CO2 14 L VBG O2 Sat (Calc) 96 H VBG Base Excess -16 L POC Mix VBG pCO2 Pt Tmp 32.3 L O2 Delivery Device Room Air Crit Call To/Read Back Yes Blood Gas Notified Whom dr garrison Blood Gas Notified Time 22:13:23 Radiology Impression Abdomen/Pelvis CT 08/13/20 20:18 IMPRESSION: Large hiatal hernia. Diverticulosis. Cholelithiasis. Electronically Signed: Lucian Bustillo MD at 21:27 EDT Tel , Service support , Gallbladder Ultrasound 08/13/20 21:41 IMPRESSION: 1. 2.1 cm stone in the neck of the gallbladder. No wall thickening or pericholecystic fluid is seen Electronically Signed: Austen Paul MD at 23:18 EDT , Service support , Assessment & Plan Assessment/Plan (1) Acute kidney injury: (2) Lactic acidosis: (3) Septic shock: PLAN: 1. Septic shock * Based on lactate criteria * Patient currently receiving 30 cc/kg of IV fluids * No clear source of infection at this time * Received epicillin/tazobactam in the emergency room and will continue on the floor * Follow-up cultures * Given the patient's symptoms, concern for an intra-abdominal process, such as ischemic colitis * General surgery as well as critical care medicine consultation 2. Acute kidney injury * May be prerenal but patient receiving crystalloid fluids * Monitor 3. Lactic acidosis * Concern for septic shock unclear source but other possibilities could be ischemic latus or mesenteric ischemia * Receiving 30 cc/kg of IV fluids * For now, patient be n.p.o. 4. Anemia * Currently hemoglobin is 13 though this may be hemoconcentrated * Patient was to have a colonoscopy on the but that will be put on hold given the current circumstances 5. VTE prophylaxis: SCDs for now. Holding off on chemical prophylaxis in case surgery would be necessary 6. Advanced care planning: Discussed with the patient. Patient wishes to be full CODE STATUS at this time. 7. Health maintenance: Patient has received the COVID-19 vaccine Patient seen and evaluated on February 12. Charges/Coding Visit Charges Inpatient E&M: 00492 Init Hosp L3 (billing for 08/13/2020)
[2020-08-13 23:52] LABS: Troponin-I HS 119.3 pg/mL (3.0-53.7)
[2020-08-14] VITALS (33 sets, daily range): BP systolic 95–142; BP diastolic 52–86; PULSE 73–94; RESP 14–24; TEMP 36.2–37.3; O2SAT 85–99; BMI 35.9
[2020-08-14] MEDS: Ondansetron 4 MG/2 ML Vial IV (00:04)
--- NOTE | 2020-08-14 00:11 | RAD_ITS ---
STUDY: X-RAY CHEST REASON FOR EXAM: Female, 70 years old. lactic acidosis TECHNIQUE: Single AP portable view of the chest. COMPARISON: May 07, 2018. CT abdomen and pelvis August 13, 2020. FINDINGS: No focal infiltrates or effusions. No pneumothorax. Large hiatal hernia overlying the base of the heart on the left. There is mild cardiac enlargement. Normal mediastinum and ely. Normal visualized pulmonary arteries. Normal visualized aortic arch and descending thoracic aorta. Normal visualized thoracic spine. Normal visualized ribs, clavicles, and shoulders. There is no demonstrated abnormality of the visualized soft tissue structures of the upper abdomen. RAD/Chest 1 View (Portable) IMPRESSION: Stable cardiomegaly. Large hiatal hernia. Electronically Signed: Ishan Mtz MD at 1:19 EDT , Service support ,
[2020-08-14] MEDS: Potassium Chloride 10mEq/100mL 10 MEQ/100 ML IV.SOLN. 100 MEQ IV BOLUS (00:18)
--- NOTE | 2020-08-14 00:53 | SEPSIS_ITS ---
Sepsis Note Physical Exam/Vitals Subjective: Feeling better. No further abdominal pain. Objective: Abdomen/Pelvis CT 08/13/20 20:18 IMPRESSION: Large hiatal hernia. Diverticulosis. Cholelithiasis. Electronically Signed: Lucian Bustillo MD at 21:27 EDT Tel , Service support , Gallbladder Ultrasound 08/13/20 21:41 IMPRESSION: 1. 2.1 cm stone in the neck of the gallbladder. No wall thickening or pericholecystic fluid is seen Electronically Signed: Austen Paul MD at 23:18 EDT , Service support , Temp Pulse Resp BP Pulse Ox 36.6 C 88 18 135/56 H 94 08/14/20 00:06 08/14/20 00:06 08/14/20 00:06 08/14/20 00:06 08/14/20 00:06 08/13/20 08/13/20 08/13/20 23:15 23:15 22:11 WBC RBC Hgb Hct MCV MCH MCHC RDW Std Deviation RDW Coeff of Roselia Plt Count MPV Immature Gran % (Auto) Neut % (Auto) Lymph % (Auto) [place] % (Auto) Eos % (Auto) Baso % (Auto) Absolute Neuts (auto) Absolute Lymphs (auto) Nucleated RBC % Differential Comment Platelet Estimate Plt Morphology Comment RBC Morphology Anisocytosis Specimen Type JUANITA VBG pH 7.20 L VBG pO2 97 H VBG HCO3 13 L VBG Total CO2 14 L VBG O2 Sat (Calc) 96 H VBG Base Excess -16 L POC Mix VBG pCO2 Pt Tmp 32.3 L O2 Delivery Device Room Air Crit Call To/Read Back Yes Blood Gas Notified Whom dr garrison Blood Gas Notified Time 22:13:23 Sodium Potassium Chloride Carbon Dioxide Anion Gap BUN Creatinine Estim Creat Clear Calc Est GFR (MDRD) Af Amer Est GFR (MDRD) Non-Af BUN/Creatinine Ratio Glucose Lactic Acid Calcium Magnesium Total Bilirubin AST ALT Alkaline Phosphatase Troponin I High Sens 119.3 H* Total Protein Albumin Globulin Albumin/Globulin Ratio Lipase Urine Color Urine Clarity Urine pH Ur Specific [place] [employer] Urine Protein Urine Glucose (UA) Urine Ketones Urine Occult Blood Urine Nitrite Urine Bilirubin Urine Urobilinogen Ur Leukocyte Esterase Urine RBC Urine WBC Ur Squamous Epith Cells Urine Bacteria Urine Mucus Acetone Level NEGATIVE 08/13/20 08/13/20 08/13/20 21:40 21:10 20:20 WBC RBC Hgb Hct MCV MCH MCHC RDW Std Deviation RDW Coeff of Roselia Plt Count MPV Immature Gran % (Auto) Neut % (Auto) Lymph % (Auto) [place] % (Auto) Eos % (Auto) Baso % (Auto) Absolute Neuts (auto) Absolute Lymphs (auto) Nucleated RBC % Differential Comment Platelet Estimate Plt Morphology Comment RBC Morphology Anisocytosis Specimen Type VBG pH VBG pO2 VBG HCO3 VBG Total CO2 VBG O2 Sat (Calc) VBG Base Excess POC Mix VBG pCO2 Pt Tmp O2 Delivery Device Crit Call To/Read Back Blood Gas Notified Whom Blood Gas Notified Time Sodium Potassium Chloride Carbon Dioxide Anion Gap BUN Creatinine Estim Creat Clear Calc Est GFR (MDRD) Af Amer Est GFR (MDRD) Non-Af BUN/Creatinine Ratio Glucose Lactic Acid 10.6 H* Calcium Magnesium 2.4 Total Bilirubin AST ALT Alkaline Phosphatase Troponin I High Sens Total Protein Albumin Globulin Albumin/Globulin Ratio Lipase Urine Color Nupur Urine Clarity Sl. Cloudy Urine pH 7.0 Ur Specific [place] 1.010 Urine Protein 30 H Urine Glucose (UA) Normal Urine Ketones 5 H Urine Occult Blood 25 H Urine Nitrite Negative Urine Bilirubin 1 H Urine Urobilinogen 4 H Ur Leukocyte Esterase 500 H Urine RBC 0-5 SEEN Urine WBC 25-50 SEEN Ur Squamous Epith Cells 0 SEEN Urine Bacteria 1+ Urine Mucus 0 SEEN Acetone Level 08/13/20 08/13/20 08/13/20 20:20 20:20 20:20 WBC 24.5 H RBC 4.82 Hgb 13.0 Hct 42.3 MCV 87.8 MCH 27.0 MCHC 30.7 L RDW Std Deviation 65.0 H RDW Coeff of Roselia 20.5 H Plt Count 463 H MPV 10.4 Immature Gran % (Auto) 0.700 Neut % (Auto) 89.1 H Lymph % (Auto) 8.0 L [place] % (Auto) 2.0 Eos % (Auto) 0.0 Baso % (Auto) 0.2 Absolute Neuts (auto) 21.8 H Absolute Lymphs (auto) 1.97 Nucleated RBC % 0 Differential Comment SEE COMMENT Platelet Estimate SLT INC Plt Morphology Comment LARGE RBC Morphology N CHROM Anisocytosis RARE Specimen Type VBG pH VBG pO2 VBG HCO3 VBG Total CO2 VBG O2 Sat (Calc) VBG Base Excess POC Mix VBG pCO2 Pt Tmp O2 Delivery Device Crit Call To/Read Back Blood Gas Notified Whom Blood Gas Notified Time Sodium 140 Potassium 2.8 L Chloride 106 Carbon Dioxide 14.0 L Anion Gap 20 H BUN 27 H Creatinine 1.89 H Estim Creat Clear Calc 22.58 Est GFR (MDRD) Af Amer 34 L Est GFR (MDRD) Non-Af 28 L BUN/Creatinine Ratio 14.3 Glucose 285 H Lactic Acid Calcium 9.2 Magnesium Total Bilirubin 0.40 AST 21 ALT 28 Alkaline Phosphatase 180 H Troponin I High Sens 28.6 Total Protein 8.0 Albumin 3.4 Globulin 4.6 H Albumin/Globulin Ratio 0.7 L Lipase 58 L Urine Color Urine Clarity Urine pH Ur Specific [place] [employer] Urine Protein Urine Glucose (UA) Urine Ketones Urine Occult Blood Urine Nitrite Urine Bilirubin Urine Urobilinogen Ur Leukocyte Esterase Urine RBC Urine WBC Ur Squamous Epith Cells Urine Bacteria Urine Mucus Acetone Level General: Alert, Cooperative and No apparent distress Lungs: Clear to auscultation and Normal air movement Cardiovascular: Regular rate, Regular Rhythm, Normal S1 and Normal S2 Peripheral Pulses: Normal Skin Color: [place] Assessment/Plan 1. Septic shock: Clinically stable and subjectively improved. Completed 30 cc/kg of IV fluid bolus. Repeat lactic acid pending. Attestation Sepsis Attestation: Sepsis re-evaluation was performed
[2020-08-14 01:16] LABS: Reflex Lactate? Y
--- NOTE | 2020-08-14 01:57 | ECHOCS_ITS ---
Reason For Study: Abnormal EKG Procedure This was a 2D Doppler, Color Flow transthoracic echocardiogram. Very technically difficult study, contrast injection performed. The study was technically difficult. Contrast injection was performed. Exam performed portable in ICU/CCU. Left Ventricle Normal LV size. Left ventricular systolic function is normal. The estimated ejection fraction is 70 %. Diastolic function is indeterminate. No regional wall motion abnormalities noted. Right Ventricle Normal RV size. Normal systolic function. Atria Normal left atrium. Normal right atrium. No doppler evidence for ASD. Mitral Valve There is no mitral annular calcification. Normal mitral valve. Trivial mitral valve insufficiency. Tricuspid Valve Normal tricuspid valve. Trivial tricuspid valve insufficiency. Unable to estimate RV systolic pressure/pulmonary artery pressure due to technically difficult study. Aortic Valve Trisinus/trileaflet aortic valve. Mild focal aortic valve calcification. Pulmonic Valve The pulmonic valve is not well visualized. Great Vessels Normal sized aortic root. Pericardium/Pleural No pericardial effusion. Epicardial fat. Medication Diluted definity 5ml given slow IV push to enhance endocardial definition. MMode/2D Measurements & Calculations LVIDd: 3.8 cm IVSd: 1.0 cm Ao root diam: 3.2 cm LVIDs: 2.4 cm LVPWd: 1.1 cm LA dimension: 3.4 cm FS: 35.1 % LAV(MOD-bp): 38.8 ml LA A4 area: 14.9 cm2 RA A4 area: 11.4 cm2 LAV(MOD-bp) Indexed: 19.9 ml/m2 LAV(MOD-sp2): 42.5 ml LAV(MOD-sp4): 35.0 ml Time Measurements MV dec time: 0.24 sec Doppler Measurements & Calculations MV E max eleazar: 91.3 cm/sec Lat Peak E' Eleazar: 6.0 cm/sec Med Peak E' Eleazar: 7.0 cm/sec MV A max eleazar: 114.0 cm/sec E/E' lat: 15.2 E/E' med: 13.0 MV E/A: 0.80 MV V2 max: 134.8 cm/sec MV P1/2t max eleazar: 103.0 cm/sec Ao V2 max: 140.6 cm/sec MV max P.3 mmHg MV P1/2t: 70.1 msec Ao max P.9 mmHg MV V2 mean: 81.1 cm/sec MV dec slope: 430.5 cm/sec2 MV mean P.0 mmHg MV V2 VTI: 27.9 cm MVA(P1/2t): 3.1 cm2 LV V1 max: 132.3 cm/sec PA V2 max: 112.7 cm/sec LV V1 max P.0 mmHg ECHO/Echo Complete W/ Contrast Interpretation Summary The study was technically difficult. Contrast injection was performed. Left ventricular systolic function is normal. The estimated ejection fraction is 70 %. Trivial mitral valve insufficiency. Trivial tricuspid valve insufficiency. Mild focal aortic valve calcification. Epicardial fat. Unable to estimate RV systolic pressure/pulmonary artery pressure due to techni dm difficult study. Diastolic function is indeterminate. Ordering Physician: Ashok Bradshaw Referring Physician: Toño Rey Performed By: Chivo Ruth RCS
--- NOTE | 2020-08-14 02:02 | CON.PCM.CA_ITS ---
Assessment & Plan Assessment/Plan (1) Non-ST elevation (NSTEMI) myocardial infarction: PLAN: The patient has abnormal troponin I levels compatible with a non-ST segment elevation NC. It is unclear whether this is a true type I event versus a type II event secondary to supply demand mismatch in the setting of noncardi ovascular issues such as an underlying sepsis syndrome and acute renal insufficiency. At the present time the patient is being monitored. She denies any ongoing chest discomfort. She is going to have follow-up troponin I levels and ECGs. She has been asked to have an echocardiogram to assist in overall cardiovascular evaluation care of her left ventricular wall motion and systolic function. She may eventually need further evaluation with diagnostic cardiac catheterization. However, it may be reasonable to have this performed, if needed, once her noncardiovascular issues are further evaluated and hopefully improved especially with respect to any concerns of an underlying sepsis syndrome and renal insufficiency and electrolyte disturbance, etc. (2) Renal insufficiency: PLAN: The patient does have renal insufficiency. This may be secondary to volume loss based upon her marked nausea/emesis. However she does have an element of baseline chronic renal insufficiency. Thus her renal function will need to be followed as her volume status stabilizes, etc. (3) Hypokalemia: PLAN: The patient was noted to be hypokalemic which may be a result of her emesis. This could contribute to electrocardiographic changes as well as those related to the possibility of LVH and/or myocardial ischemia. She is receiving potassium supplement. Her potassium levels will need to be followed. (4) Lactic acidosis: PLAN: The patient was noted to have elevated lactic acid levels. The etiology is unclear at the moment. There are concerns whether this is related to a cardiac component versus a noncardiac component with concerns of underlying UTI and sepsis. The patient will continue medical evaluation and care. (5) Acute UTI: PLAN: The patient was diagnosed with a UTI. It is unclear whether this is the sole etiology for her other findings including her dated white blood cell count and concerns of sepsis and lactic acidosis. She is being placed on antibiotic therapy. (6) Leucocytosis: QUALIFIERS: Leukocytosis type: unspecified Qualified Code(s): D72.829 - Elevated white blood cell count, unspecified PLAN: The patient does have leukocytosis. This may be an acute reaction to cardiac or noncardiac issues. However it may be related to her recent initiation of corticosteroid therapy for what she refers to as poison rich on her right forearm. (7) Hypertension: QUALIFIERS: Hypertension type: essential hypertension Qualified Code(s): I10 - Essential (primary) hypertension PLAN: The patient has a history of hypertension. Her blood pressure will need to be monitored and cared for as best as possible. (8) Anemia: QUALIFIERS: Anemia type: unspecified type Qualified Code(s): D64.9 - Anemia, unspecified PLAN: The patient has a history of anemia. He states since being on iron supplement her hemoglobin has improved. She was to go through endoscopy procedures as part of her anemia evaluation. This appears to be placed on hold at the moment based upon her acute findings. Her anemia, depending upon etiology, significance, etc., may or may not play a role in the future with respect to ongoing cardiac evaluation and/or therapy. Addt'l Comments Overall, from a cardiac standpoint, the patient will continue in the ICU. She will be monitored. She will have follow-up cardiac enzymes and ECGs. She will be requested to have an echocardiogram. She will be treated medically with aspirin which will be per rectum at this time based upon her n.p.o. status. She will also be placed on heparin subcu at this time based upon cardiovascular concerns and also to minimize the risk of thromboembolic events. Depending upon her clinical course she may need additional oral, topical, or intravenous medical therapy from a cardiac and noncardiac standpoint. Again she may eventually need evaluation by diagnostic cardiac catheterization. As noted above, hopefully this could be performed, if need be, when she is improved/stable from a noncardiac status as well. The patient's case has been discussed and reviewed with the patient and with [facility] emergency department staff. This note was generated using a voice recognition system and there may be incorrect words, spelling or punctuation that were not noted when reviewing the office note prior to saving. 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 The patient states that she has been anemic in the past. She has been placed on iron supplements. Her H&H has improved. She was taking her prep for her combination EGD and colonoscopy which was to occur later this morning. She notes shortly after beginning her prep she had nausea and emesis. This was ongoing. She summoned EMS to bring her to the hospital. She does not recall having any chest discomfort or difficulty breathing. Does not recall any palpitations or the sensation of near syncope or syncope. She underwent evaluation in the emergency department. She was noted to have an elevated white blood cell count, a decreased potassium level, and elevated creatinine level, and elevated lactic acid level, and subsequently was noted to have an elevated high-sensitivity troponin level. She also had an ECG performed by the EMS and repeated in the emergency department. She was noted to have sinus rhythm with concerns of LVH, poor R wave progression, and inferior NC of indeterminate age which cannot be excluded, and ST/T wave changes potentially compatible with LVH repolarization versus myocardial ischemia versus a metabolic event. Her repeat ECGs demonstrated similar type findings. A chest x-ray was performed which suggested findings compatible with a portable chest x-ray with a report of cardiomegaly and a large hiatal hernia. She underwent general surgery consultation based upon her abdominal discomfort. She had an abdominal/pelvic CT scan performed. There was notation of cholelithiasis, diverticulosis, and a large hiatal hernia. There was also notation of scattered aortoiliac atherosclerotic calcifications. She was being treated with IV potassium supplement, IV fluids, and subsequently placed on IV antibiotics. She was transferred to the ICU for further evaluation and care. In the ICU she states she feels somewhat better. She is not complaining at the moment of any ongoing chest discomfort. She denies any ongoing dyspnea. There has been some improvement in her degree of sensation of nausea and abdominal discomfort. She states she has had some intermittent loose bowel movements which she believes is the result of her partial prep. She has denied any obvious previous episodes of hematochezia. She also denies any history of orthopnea or PND or ongoing peripheral pitting edema. To the best of her knowledge she has not had any cardiovascular diagnosis and/or procedures performed in the past. She states she does have a history of hypertension for which she has been treated medically. [facility] Medical History (Updated 08/14/20 @ 02:[address] Ashok Bradshaw MD) Anemia Anxiety Arthritis CAP (community acquired pneumonia) Depression Depression Difficulty swallowing Easy bruising Gastric reflux Gout History of back problems History of diverticulitis History of echocardiogram Hypertension Migraine headache Non-smoker Non-ST elevation (NSTEMI) myocardial infarction Poison rich dermatitis Scoliosis Shortness of breath on exertion Home Medications venlafaxine 150 mg PO QHS 05/07/18 [History Last Taken Unknown] allopurinol 300 mg tablet 300 mg PO DAILY 06/01/18 [History Last Taken Unknown] ferrous sulfate 325 mg (65 mg iron) tablet 650 mg PO DAILY tab 06/01/18 [History Last Taken Unknown] verapamil 300 mg PO QHS 06/16/18 [History Last Taken 06/19/18 20:30] calcium citrate 200 mg calcium-vitamin D3 3.125 mcg (125 unit) tablet 1 tab PO DAILY 07/15/20 [History Last Taken Unknown] ipratropium bromide 17 mcg/actuation HFA aerosol inhaler 1 inh INHALATION DAILY PRN PRN 07/15/20 [History Last Taken Unknown] lisinopril 10 mg tablet 10 mg PO DAILY 07/15/20 [History Last Taken Unknown] Allergy/AdvReac Type Severity Reaction Status Date / Time propranolol [From Inderal LA] Allergy Mild PT UNSURE Verified 08/13/20 20:19 OF REACTION Family History Mother Breast cancer Hypertension Cancer skin cancer Father Diabetes Heart disease Hypertension Cancer skin cancer Brother Diabetes Surgical History Excision ectopic History of appendectomy History of colonoscopy History of foot surgery History of tubal ligation Social History Smoking Status: Never smoker alcohol intake: never substance use type: does not use ROS Constitutional Constitutional: Reports as per HPI and weight gain Eyes Eyes: Reports as per HPI ENT HEENT: Reports as per HPI Cardiovascular Cardiovascular: Reports nausea Respiratory/Chest Respiratory/Chest: Reports as per HPI Gastrointestinal Gastrointestinal: Reports as per HPI, nausea and vomiting Genitourinary Genitourinary: Reports as per HPI Musculoskeletal Musculoskeletal: Reports as per HPI Integumentary Integumentary: Reports as per HPI Neurologic Neurologic: Reports as per HPI Physical Exam Const alert, oriented x3 and no apparent distress Orientation / Consciousness: awake HEENT normocephalic, head/scalp atraumatic and hearing grossly normal bilaterally Eyes PERRL, EOMs intact bilaterally, conjunctivae normal and no scleral icterus Neck full ROM, supple, no JVD and no carotid bruits Chest inspection of chest normal and palpation of chest normal Resp normal respiratory effort and clear to auscultation bilaterally Cardio regular rate, regular rhythm, S1 normal heart sound and S2 normal heart sound GI GI Narrative: Diminished bowel sounds; positive tenderness to palpation especially over the lower abdominal area Extremity no pedal edema Skin Skin Narrative: Rash: Right forearm Neuro oriented x3, CN's II-XII intact bilaterally and moves all extremities Psych mental status grossly normal Objective Data Vital Signs: Vital Signs Temp Pulse Resp BP Pulse Ox 97.7 F L 84 21 H 129/71 H 96 08/14/20 01:25 08/14/20 01:45 08/14/20 01:40 08/14/20 01:40 08/14/20 01:40 Oxygen Flow Rate (L/min) 2 Oxygen Delivery Method Nasal Cannula Weight: 203 lb Body Mass Index (BMI) 35.9 Intake & Output: Intake and Output for Last 24 Hours 08/12/20 08/13/20 08/14/20 23:59 23:59 23:59 Intake Total 1246.67 / 1246.67 1100 / 1100 Balance 1246.67 / 1246.67 1100 / 1100 Lab / Micro Data Result Diagrams: 08/13/20 20:20 08/13/20 20:20 Labs: Laboratory Results - last 24 hr 08/13/20 08/13/20 08/13/20 20:20 20:20 20:20 WBC 24.5 H RBC 4.82 Hgb 13.0 Hct 42.3 MCV 87.8 MCH 27.0 MCHC 30.7 L RDW Std Deviation 65.0 H RDW Coeff of Roselia 20.5 H Plt Count 463 H MPV 10.4 Immature Gran % (Auto) 0.700 Neut % (Auto) 89.1 H Lymph % (Auto) 8.0 L [place] % (Auto) 2.0 Eos % (Auto) 0.0 Baso % (Auto) 0.2 Absolute Neuts (auto) 21.8 H Absolute Lymphs (auto) 1.97 Nucleated RBC % 0 Differential Comment SEE COMMENT Platelet Estimate SLT INC Plt Morphology Comment LARGE RBC Morphology N CHROM Anisocytosis RARE Sodium 140 Potassium 2.8 L Chloride 106 Carbon Dioxide 14.0 L Anion Gap 20 H BUN 27 H Creatinine 1.89 H Estim Creat Clear Calc 22.58 Est GFR (MDRD) Af Amer 34 L Est GFR (MDRD) Non-Af 28 L BUN/Creatinine Ratio 14.3 Glucose 285 H Lactic Acid Calcium 9.2 Magnesium Total Bilirubin 0.40 AST 21 ALT 28 Alkaline Phosphatase 180 H Troponin I High Sens 28.6 Total Protein 8.0 Albumin 3.4 Globulin 4.6 H Albumin/Globulin Ratio 0.7 L Lipase 58 L Urine Color Urine Clarity Urine pH Ur Specific [place] Urine Protein Urine Glucose (UA) Urine Ketones Urine Occult Blood Urine Nitrite Urine Bilirubin Urine Urobilinogen Ur Leukocyte Esterase Urine RBC Urine WBC Ur Squamous Epith Cells Urine Bacteria Urine Mucus Acetone Level 08/13/20 08/13/20 08/13/20 20:20 21:10 21:40 WBC RBC Hgb Hct MCV MCH MCHC RDW Std Deviation RDW Coeff of Roselia Plt Count MPV Immature Gran % (Auto) Neut % (Auto) Lymph % (Auto) Lan[place] % (Auto) Eos % (Auto) Baso % (Auto) Absolute Neuts (auto) Absolute Lymphs (auto) Nucleated RBC % Differential Comment Platelet Estimate Plt Morphology Comment RBC Morphology Anisocytosis Sodium Potassium Chloride Carbon Dioxide Anion Gap BUN Creatinine Estim Creat Clear Calc Est GFR (MDRD) Af Amer Est GFR (MDRD) Non-Af BUN/Creatinine Ratio Glucose Lactic Acid 10.6 H* Calcium Magnesium 2.4 Total Bilirubin AST ALT Alkaline Phosphatase Troponin I High Sens Total Protein Albumin Globulin Albumin/Globulin Ratio Lipase Urine Color Nupur Urine Clarity Sl. Cloudy Urine pH 7.0 Ur Specific [place] 1.010 Urine Protein 30 H Urine Glucose (UA) Normal Urine Ketones 5 H Urine Occult Blood 25 H Urine Nitrite Negative Urine Bilirubin 1 H Urine Urobilinogen 4 H Ur Leukocyte Esterase 500 H Urine RBC 0-5 SEEN Urine WBC 25-50 SEEN Ur Squamous Epith Cells 0 SEEN Urine Bacteria 1+ Urine Mucus 0 SEEN Acetone Level 08/13/20 08/13/20 23:15 23:15 WBC RBC Hgb Hct MCV MCH MCHC RDW Std Deviation RDW Coeff of Roselia Plt Count MPV Immature Gran % (Auto) Neut % (Auto) Lymph % (Auto) [place] % (Auto) Eos % (Auto) Baso % (Auto) Absolute Neuts (auto) Absolute Lymphs (auto) Nucleated RBC % Differential Comment Platelet Estimate Plt Morphology Comment RBC Morphology Anisocytosis Sodium Potassium Chloride Carbon Dioxide Anion Gap BUN Creatinine Estim Creat Clear Calc Est GFR (MDRD) Af Amer Est GFR (MDRD) Non-Af BUN/Creatinine Ratio Glucose Lactic Acid Calcium Magnesium Total Bilirubin AST ALT Alkaline Phosphatase Troponin I High Sens 119.3 H* Total Protein Albumin Globulin Albumin/Globulin Ratio Lipase Urine Color Urine Clarity Urine pH Ur Specific [place] Urine Protein Urine Glucose (UA) Urine Ketones Urine Occult Blood Urine Nitrite Urine Bilirubin Urine Urobilinogen Ur Leukocyte Esterase Urine RBC Urine WBC Ur Squamous Epith Cells Urine Bacteria Urine Mucus Acetone Level NEGATIVE Micro: Microbiology 08/14/20 00:02 Mucosa - Nose SARS-CoV-2 Antigen (Rapid) - Final ABG Data ABG results: ABG 08/13/20 22:11 Specimen Type JUANITA VBG pH 7.20 L VBG pO2 97 H VBG HCO3 13 L VBG Total CO2 14 L VBG O2 Sat (Calc) 96 H VBG Base Excess -16 L POC Mix VBG pCO2 Pt Tmp 32.3 L O2 Delivery Device Room Air Crit Call To/Read Back Yes Blood Gas Notified Whom dr garrison Blood Gas Notified Time 22:13:23 Rhythm Strip Rhythm Strip: Sinus Rhythm Rate: 93 Ectopy: None Cardiology Labs/Tests 08/13/20 20:20: Sodium 140, Potassium 2.8 L, Chloride 106, Carbon Dioxide 14.0 L , Anion Gap 20 H, BUN 27 H, Creatinine 1.89 H, Est GFR (MDRD) Af Amer 34 L, Est GFR (MDRD) Non-Af 28 L, BUN/Creatinine Ratio 14.3, Glucose 285 H, Calcium 9.2, Total Bilirubin 0.40 08/13/20 20:20: WBC 24.5 H, RBC 4.82, Hgb 13.0, Hct 42.3, MCV 87.8, MCH 27.0, MCHC 30.7 L, Plt Count 463 H, MPV 10.4, Immature Gran % (Auto) 0.700, Neut % (Auto) 89.1 H, Lymph % (Auto) 8.0 L, [place] % (Auto) 2.0, Eos % (Auto) 0.0, Baso % (Auto) 0.2, Absolute Neuts (auto) 21.8 H, Nucleated RBC % 0 08/13/20 20:20: Magnesium 2.4 08/13/20 21:10: Lactic Acid 10.6 H* 08/13/20 21:40: Urine Color Nupur, Urine Clarity Sl. Cloudy, Urine pH 7.0, Ur Specific [place] 1.010, Urine Protein 30 H, Urine Glucose (UA) Normal, Urine Ketones 5 H, Urine Occult Blood 25 H, Urine Nitrite Negative, Urine Bilirubin 1 H, Urine Urobilinogen 4 H, Ur Leukocyte Esterase 500 H, Urine RBC 0-5 SEEN, Urine WBC 25-50 SEEN 08/13/20 22:11: VBG pH 7.20 L, VBG pO2 97 H, VBG HCO3 13 L, VBG O2 Sat (Calc) 96 H, VBG Base Excess -16 L Rhythm: Sinus rhythm EKG: As noted above Radiography Diagnostic Testing: Radiology Impression Abdomen/Pelvis CT 08/13/20 20:18 IMPRESSION: Large hiatal hernia. Diverticulosis. Cholelithiasis. Electronically Signed: Lucian Bustillo MD at 21:27 EDT Tel , Service support , Gallbladder Ultrasound 08/13/20 21:41 IMPRESSION: 1. 2.1 cm stone in the neck of the gallbladder. No wall thickening or pericholecystic fluid is seen Electronically Signed: Austen Paul MD at 23:18 EDT , Service support , Chest X-Ray 08/14/20 00:11 IMPRESSION: Stable cardiomegaly. Large hiatal hernia. Electronically Signed: Ishan Mtz MD at 1:19 EDT , Service support ,
[2020-08-14 04:26] LABS: Lactic Acid 7.8 mmol/L (0.4-1.9)
[2020-08-14 04:27] LABS: Absolute Lymphocyte Count 1.15 X10^3/uL (0.83-4.51); Absolute Neutrophil Count 26.9 X10^3/uL (2.0-7.7); Basophil# 0.07 X10^3/uL; Basophil% 0.2 % (0-1); Differential Indicated SCAN CRITERIA MET; Hematocrit 39.5 % (37-47); Hemoglobin 12.1 g/dL (12.0-15.0); Lymphocyte # 1.15 X10^3/ul (0.83-4.51); Lymphocyte % 3.9 % (19-41); Mean Corp Hgb Conc 30.6 g/dL (32-36); Mean Corpuscular Hgb 26.8 pg (27.0-32.0); Mean Corpuscular Volume 87.4 fL (81-99); Mean Platelet Vol. 10.6 fl (6.2-12.0); Monocyte# 1.11 X10^3/uL; Monocyte% 3.8 % (0-10); NRBC Flagged by Analyzer 0 % (0-5); Neutrophil # 26.93 X10^3/uL (2.7-7.7); Neutrophil % 91.3 % (47-70); POSITIVE DIFFERENTIAL YES; POSITIVE MORPHOLOGY YES; Platelet Count 401 K/mm3 (150-450); RBC Distribution Width CV 20.9 % (11.6-14.6); RBC Distribution Width SD 64.8 fl (35.1-43.9); Red Blood Count 4.52 M/mm3 (4.2-5.4); White Blood Count 29.5 K/mm3 (4.4-11.0)
[2020-08-14 04:37] LABS: Troponin-I HS 215.6 pg/mL (3.0-53.7)
[2020-08-14 04:40] LABS: International Normalized Ratio 1.2; Prothrombin Time (Protime)PT. 14.1 SECONDS (11.7-14.9)
[2020-08-14 05:22] LABS: ALB/GLOB Ratio 0.7 RATIO (0.9-2.4); AST(SGOT) 27 U/L (15-37); Alanine Aminotransfer ALT/SGPT 27 U/L (13-56); Albumin, Serum 2.8 g/dL (3.2-5.0); Alkaline Phosphatase 145 U/L (45-117); Anion Gap 9 (5-15); BUN 26 mg/dL (7-18); BUN/Creat Ratio 18.8 RATIO (10-20); Calcium,Total 8.2 mg/dL (8.5-10.1); Chloride 115 mmol/L (98-107); Cholesterol 131 mg/dL (200); Creatinine, Serum 1.38 mg/dL (0.55-1.02); EST Glomerular Filtration Rate 40 mL/min (>60); Est Glom Filt Rate - Afr Amer 48 mL/min (>60); Estimated Creatinine Clearance 30.93 ml/min; Globulin 3.9 g/dL (2.2-4.2); Glucose 118 mg/dL (74-106); High Density Lipoprotein 49 mg/dL; Potassium 4.1 mmol/L (3.5-5.1); Protein, Total 6.7 g/dL (6.4-8.2); Sodium Level 143 mmol/L (136-145); Triglycerides 80 mg/dL; Very Low Density Lipoprotein 16 mg/dL (5-40)
[2020-08-14 05:24] LABS: Anisocytosis RARE; Differential Comment SCANNED; Macrocytosis RARE
--- NOTE | 2020-08-14 05:55 | EKG12_ITS ---
Test Reason : AM EKG Blood Pressure : / mmHG Vent. Rate : 090 BPM Atrial Rate : 090 BPM P-R Int : 182 ms QRS Dur : 082 ms QT Int : 370 ms P-R-T Axes : 052 -14 103 degrees QTc Int : 452 ms Normal sinus rhythm Nonspecific T wave abnormality Abnormal ECG When compared with ECG of 07-MAY-2018 11:46, No significant change was found Confirmed by JORGE MALHOTRA, MICHELLE ([id number]), social media editor MARLENE DIAZ ([id number]) on 08/15/2020 12:37:28 PM Referred By: DIPIKA Confirmed By:MICHELLE PATEL MD
--- NOTE | 2020-08-14 07:26 | PCM.PN.SRG ---
Subjective Subjective Patient reports she is having less nausea this morning and feeling somewhat better. She is not having abdominal pain in both lower quadrants. Objective Data Objective Data Vital Signs: Vital Signs Temp Pulse Resp BP Pulse Ox 97.7 F L 91 21 H 129/71 H 96 08/14/20 01:25 08/14/20 04:00 08/14/20 01:40 08/14/20 01:40 08/14/20 01:55 Oxygen Flow Rate (L/min) 2 Oxygen Delivery Method Nasal Cannula Weight: 203 lb Body Mass Index (BMI) 35.9 Intake & Output: Intake and Output for Last 24 Hours 08/12/20 08/13/20 08/14/20 23:59 23:59 23:59 Intake Total 1246.67 / 1246.67 1100 / 1100 Balance 1246.67 / 1246.67 1100 / 1100 Lab / Micro Data Result Diagrams: 08/14/20 04:15 08/14/20 04:15 Labs: Laboratory Results - last 24 hr 08/13/20 08/13/20 08/13/20 20:20 20:20 20:20 WBC 24.5 H RBC 4.82 Hgb 13.0 Hct 42.3 MCV 87.8 MCH 27.0 MCHC 30.7 L RDW Std Deviation 65.0 H RDW Coeff of Roselia 20.5 H Plt Count 463 H MPV 10.4 Immature Gran % (Auto) 0.700 Neut % (Auto) 89.1 H Lymph % (Auto) 8.0 L [place] % (Auto) 2.0 Eos % (Auto) 0.0 Baso % (Auto) 0.2 Absolute Neuts (auto) 21.8 H Absolute Lymphs (auto) 1.97 Nucleated RBC % 0 Differential Comment SEE COMMENT Platelet Estimate SLT INC Plt Morphology Comment LARGE RBC Morphology N CHROM Anisocytosis RARE Macrocytosis PT INR Sodium 140 Potassium 2.8 L Chloride 106 Carbon Dioxide 14.0 L Anion Gap 20 H BUN 27 H Creatinine 1.89 H Estim Creat Clear Calc 22.58 Est GFR (MDRD) Af Amer 34 L Est GFR (MDRD) Non-Af 28 L BUN/Creatinine Ratio 14.3 Glucose 285 H Lactic Acid Calcium 9.2 Magnesium Total Bilirubin 0.40 AST 21 ALT 28 Alkaline Phosphatase 180 H Troponin I High Sens 28.6 Total Protein 8.0 Albumin 3.4 Globulin 4.6 H Albumin/Globulin Ratio 0.7 L Triglycerides Cholesterol LDL Cholesterol VLDL Cholesterol HDL Cholesterol Lipase 58 L Urine Color Urine Clarity Urine pH Ur Specific [place] Urine Protein Urine Glucose (UA) Urine Ketones Urine Occult Blood Urine Nitrite Urine Bilirubin Urine Urobilinogen Ur Leukocyte Esterase Urine RBC Urine WBC Ur Squamous Epith Cells Urine Bacteria Urine Mucus Acetone Level 08/13/20 08/13/20 08/13/20 20:20 21:10 21:40 WBC RBC Hgb Hct MCV MCH MCHC RDW Std Deviation RDW Coeff of [place] Plt Count MPV Immature Gran % (Auto) Neut % (Auto) Lymph % (Auto) [place] % (Auto) Eos % (Auto) Baso % (Auto) Absolute Neuts (auto) Absolute Lymphs (auto) Nucleated RBC % Differential Comment Platelet Estimate Plt Morphology Comment RBC Morphology Anisocytosis Macrocytosis PT INR Sodium Potassium Chloride Carbon Dioxide Anion Gap BUN Creatinine Estim Creat Clear Calc Est GFR (MDRD) Af Amer Est GFR (MDRD) Non-Af BUN/Creatinine Ratio Glucose Lactic Acid 10.6 H* Calcium Magnesium 2.4 Total Bilirubin AST ALT Alkaline Phosphatase Troponin I High Sens Total Protein Albumin Globulin Albumin/Globulin Ratio Triglycerides Cholesterol LDL Cholesterol VLDL Cholesterol HDL Cholesterol Lipase Urine Color Nupur Urine Clarity Sl. Cloudy Urine pH 7.0 Ur Specific [place] 1.010 Urine Protein 30 H Urine Glucose (UA) Normal Urine Ketones 5 H Urine Occult Blood 25 H Urine Nitrite Negative Urine Bilirubin 1 H Urine Urobilinogen 4 H Ur Leukocyte Esterase 500 H Urine RBC 0-5 SEEN Urine WBC 25-50 SEEN Ur Squamous Epith Cells 0 SEEN Urine Bacteria 1+ Urine Mucus 0 SEEN Acetone Level 08/13/20 08/13/20 08/14/20 23:15 23:15 01:40 WBC RBC Hgb Hct MCV MCH MCHC RDW Std Deviation RDW Coeff of [place] Plt Count MPV Immature Gran % (Auto) Neut % (Auto) Lymph % (Auto) [place] % (Auto) Eos % (Auto) Baso % (Auto) Absolute Neuts (auto) Absolute Lymphs (auto) Nucleated RBC % Differential Comment Platelet Estimate Plt Morphology Comment RBC Morphology Anisocytosis Macrocytosis PT INR Sodium Potassium Chloride Carbon Dioxide Anion Gap BUN Creatinine Estim Creat Clear Calc Est GFR (MDRD) Af Amer Est GFR (MDRD) Non-Af BUN/Creatinine Ratio Glucose Lactic Acid 7.8 H* Calcium Magnesium Total Bilirubin AST ALT Alkaline Phosphatase Troponin I High Sens 119.3 H* Total Protein Albumin Globulin Albumin/Globulin Ratio Triglycerides Cholesterol LDL Cholesterol VLDL Cholesterol HDL Cholesterol Lipase Urine Color Urine Clarity Urine pH Ur Specific [place] Urine Protein Urine Glucose (UA) Urine Ketones Urine Occult Blood Urine Nitrite Urine Bilirubin Urine Urobilinogen Ur Leukocyte Esterase Urine RBC Urine WBC Ur Squamous Epith Cells Urine Bacteria Urine Mucus Acetone Level NEGATIVE 08/14/20 08/14/20 08/14/20 02:20 04:15 04:15 WBC 29.5 H RBC 4.52 Hgb 12.1 Hct 39.5 MCV 87.4 MCH 26.8 L MCHC 30.6 L RDW Std Deviation 64.8 H RDW Coeff of [place] 20.9 H Plt Count 401 MPV 10.6 Immature Gran % (Auto) 0.800 Neut % (Auto) 91.3 H Lymph % (Auto) 3.9 L [place] % (Auto) 3.8 Eos % (Auto) 0.0 Baso % (Auto) 0.2 Absolute Neuts (auto) 26.9 H Absolute Lymphs (auto) 1.15 Nucleated RBC % 0 Differential Comment SCANNED Platelet Estimate Plt Morphology Comment RBC Morphology Anisocytosis RARE Macrocytosis RARE PT 14.1 INR 1.2 Sodium Potassium Chloride Carbon Dioxide Anion Gap BUN Creatinine Estim Creat Clear Calc Est GFR (MDRD) Af Amer Est GFR (MDRD) Non-Af BUN/Creatinine Ratio Glucose Lactic Acid Calcium Magnesium Total Bilirubin AST ALT Alkaline Phosphatase Troponin I High Sens 215.6 H* Total Protein Albumin Globulin Albumin/Globulin Ratio Triglycerides Cholesterol LDL Cholesterol VLDL Cholesterol HDL Cholesterol Lipase Urine Color Urine Clarity Urine pH Ur Specific [place] Urine Protein Urine Glucose (UA) Urine Ketones Urine Occult Blood Urine Nitrite Urine Bilirubin Urine Urobilinogen Ur Leukocyte Esterase Urine RBC Urine WBC Ur Squamous Epith Cells Urine Bacteria Urine Mucus Acetone Level 08/14/20 08/14/20 04:15 04:15 WBC RBC Hgb Hct MCV MCH MCHC RDW Std Deviation RDW Coeff of [place] Plt Count MPV Immature Gran % (Auto) Neut % (Auto) Lymph % (Auto) [place] % (Auto) Eos % (Auto) Baso % (Auto) Absolute Neuts (auto) Absolute Lymphs (auto) Nucleated RBC % Differential Comment Platelet Estimate Plt Morphology Comment RBC Morphology Anisocytosis Macrocytosis PT INR Sodium 143 Potassium 4.1 Chloride 115 H Carbon Dioxide 19.0 L Anion Gap 9 BUN 26 H Creatinine 1.38 H Estim Creat Clear Calc 30.93 Est GFR (MDRD) Af Amer 48 L Est GFR (MDRD) Non-Af 40 L BUN/Creatinine Ratio 18.8 Glucose 118 H Lactic Acid Calcium 8.2 L Magnesium Total Bilirubin 0.30 AST 27 ALT 27 Alkaline Phosphatase 145 H Troponin I High Sens Total Protein 6.7 Albumin 2.8 L Globulin 3.9 Albumin/Globulin Ratio 0.7 L Triglycerides 80 Cholesterol 131 LDL Cholesterol 66 VLDL Cholesterol 16 HDL Cholesterol 49 Lipase Urine Color Urine Clarity Urine pH Ur Specific [place] Urine Protein Urine Glucose (UA) Urine Ketones Urine Occult Blood Urine Nitrite Urine Bilirubin Urine Urobilinogen Ur Leukocyte Esterase Urine RBC Urine WBC Ur Squamous Epith Cells Urine Bacteria Urine Mucus Acetone Level Micro: Microbiology 08/14/20 00:02 Mucosa - Nose SARS-CoV-2 Antigen (Rapid) - Final ABG Data ABG results: ABG 08/13/20 22:11 Specimen Type JUANITA VBG pH 7.20 L VBG pO2 97 H VBG HCO3 13 L VBG Total CO2 14 L VBG O2 Sat (Calc) 96 H VBG Base Excess -16 L POC Mix VBG pCO2 Pt Tmp 32.3 L O2 Delivery Device Room Air Crit Call To/Read Back Yes Blood Gas Notified Whom dr garrison Blood Gas Notified Time 22:13:23 Radiography Diagnostic Testing: Radiology Impression Abdomen/Pelvis CT 08/13/20 20:18 IMPRESSION: Large hiatal hernia. Diverticulosis. Cholelithiasis. Electronically Signed: Lucian Bustillo MD at 21:27 EDT Tel , Service support , Gallbladder Ultrasound 08/13/20 21:41 IMPRESSION: 1. 2.1 cm stone in the neck of the gallbladder. No wall thickening or pericholecystic fluid is seen Electronically Signed: Austen Paul MD at 23:18 EDT , Service support , Chest X-Ray 08/14/20 00:11 IMPRESSION: Stable cardiomegaly. Large hiatal hernia. Electronically Signed: Ishan Mtz MD at 1:19 EDT , Service support , Rhythm Strip Rhythm Strip: Sinus Rhythm Rate: 93 Ectopy: None Physical Exam Const oriented x3 Resp normal respiratory effort Cardio regular rate and regular rhythm GI soft to palpation GI Narrative: Abdomen is soft and tender in both lower quadrants with no guarding or rebound. Assessment & Plan Assessment/Plan (1) Leucocytosis: QUALIFIERS: Leukocytosis type: unspecified Qualified Code(s): D72.829 - Elevated white blood cell count, unspecified (2) Lactic acidosis: PLAN: Patient continues to have elevated white count with lactate and creatinine are improving with fluids. There is concern for colitis by the continuous absorption process operator so I will order a CT with oral contrast for later today. Continue n.p.o. and IV fluids with IV antibiotics. Jj Gallardo MD Pager: [facility] [address] [place] [address], [address] [place] [address] Office:
--- NOTE | 2020-08-14 07:32 | EX.PCM.CONCC ---
Assessment & Plan Assessment/Plan (1) Leucocytosis: QUALIFIERS: Leukocytosis type: unspecified Qualified Code(s): D72.829 - Elevated white blood cell count, unspecified (2) Renal insufficiency: (3) Acute kidney injury: (4) Hypertension: QUALIFIERS: Hypertension type: essential hypertension Qualified Code(s): I10 - Essential (primary) hypertension (5) Depression: QUALIFIERS: Depression Type: unspecified Qualified Code(s): F32.9 - Major depressive disorder, single episode, unspecified PLAN: RECOMMENDATIONS: 1. Abdominal imaging per surgery 2. Okay to discontinue stool studies from my perspective 3. Continue empiric antibiotics 4. Wean oxygen as tolerated 5. Possible transfer from the intensive care unit later today pending response to therapy IMPRESSIONS: 1. Septic shock by lactate criteria Unclear etiology. Patient's physical exam is consistent with colitis and significantly elevated lactate would be concerning for ischemic colitis. However, presenting CT was not suggestive of such a finding. Patient does have a gallbladder stone, but no associated signs of inflammation. Empiric therapy with Zosyn would be appropriate. Defer to surgery on follow-up abdominal imaging and trending lactates. Patient has remained hemodynamically stable otherwise. Patient does not have an acute abdomen in my opinion at this time. Physical exam is suggestive of colitis as an etiology. 2. Elevated troponin Unclear etiology. Clinical suspicion for supply demand mismatch. Cardiology is following. Patient is on telemetry. Obtain EKG if necessary. 3. Acute kidney injury Baseline creatinine appears to be approximately 1. This may be prerenal secondary to bowel prep. Patient did not receive a significant amount of bowel prep. Elevation occurred prior to any contrast, so contrast-induced nephropathy would be unlikely. 4. Obesity/advanced age/hiatal hernia/hypertension Complicates care, management, recovery and prognosis. Recommend elevation of head of bed. Patient may benefit from initiation of a PPI. Would hold lisinopril given acute kidney injury. HPI Consult Data Date of Consult: 08/14/20 HPI Narrative HPI Narrative: TERESA GREWAL is a 70 F, with past medical history listed below, who presented to [facility] on 08/13/2020 secondary to acute onset of nausea and vomiting. Patient reportedly was feeling of her usual health and had started took prep for a colonoscopy scheduled for today. Patient states that she started her prep and approximately 2 hours later started to have nausea vomiting and then developed epigastric pain. Patient felt that there was some slight blood in her vomit, but otherwise thought this was consistent with her prep. Patient denied any new food exposures or abdominal trauma. Patient has not had a previous similar complaint. In the ER, patient was afebrile and normotensive. Patient was saturating well on room air. Laboratory data was significant for leukocytosis of 24.5, potassium of 2.8, creatinine of 1.89 and a glucose of 285. Alkaline phosphatase was elevated and lactate was noted to be 10.6. UA was relatively unremarkable. Over the course of patient's ER stay, troponins did trend up slightly. Patient had a gallbladder ultrasound showing a 2.1 cm stone, but no wall thickening or pericholecystic fluid. A CT of the abdomen showed a large hiatal hernia with diverticulosis and an EKG was relatively unremarkable. Patient was admitted to the intensive care unit with orders for stool studies. Since being in the intensive care unit, patient feels relatively unchanged. Patient has not had nausea or vomiting, but has had some loose bowel movements. Patient does feel that her abdomen is slightly more tender compared to previous. Patient denies any chest pain or respiratory complaints, but is requiring 1 to 2 L nasal cannula to maintain saturations. Patient reportedly has never been a smoker, drinker or use illicit substances. Patient does have a history of an ectopic and appendectomy. Patient has had a colonoscopy in the past and did not have this issue with bowel prep. Patient is not reporting any sinus congestion or other constitutional symptoms such as fever or diaphoresis. Did discuss case with surgeon and saw the patient overnight. Abdominal tenderness appears to be slightly worse now compared to presentation. Review of systems otherwise negative from a constitutional, HEENT, respiratory, cardiovascular, GI, genitourinary, musculoskeletal, skin, neurologic, psychiatric and hematologic system unless stated above. [facility] Medical History (Updated 08/14/20 @ 02:[address] Ashok Bradshaw MD) Anemia Anxiety Arthritis CAP (community acquired pneumonia) Depression Depression Difficulty swallowing Easy bruising Gastric reflux Gout History of back problems History of diverticulitis History of echocardiogram Hypertension Migraine headache Non-smoker Non-ST elevation (NSTEMI) myocardial infarction Poison rich dermatitis Scoliosis Shortness of breath on exertion Home Medications venlafaxine 150 mg PO QHS 05/07/18 [History Last Taken Unknown] allopurinol 300 mg tablet 300 mg PO DAILY 06/01/18 [History Last Taken Unknown] ferrous sulfate 325 mg (65 mg iron) tablet 650 mg PO DAILY tab 06/01/18 [History Last Taken Unknown] verapamil 300 mg PO QHS 06/16/18 [History Last Taken 06/19/18 20:30] calcium citrate 200 mg calcium-vitamin D3 3.125 mcg (125 unit) tablet 1 tab PO DAILY 07/15/20 [History Last Taken Unknown] ipratropium bromide 17 mcg/actuation HFA aerosol inhaler 1 inh INHALATION DAILY PRN PRN 07/15/20 [History Last Taken Unknown] lisinopril 10 mg tablet 10 mg PO DAILY 07/15/20 [History Last Taken Unknown] Allergy/AdvReac Type Severity Reaction Status Date / Time propranolol [From Inderal LA] Allergy Mild PT UNSURE Verified 08/13/20 20:19 OF REACTION Family History Mother Breast cancer Hypertension Cancer skin cancer Father Diabetes Heart disease Hypertension Cancer skin cancer Brother Diabetes Surgical History Excision ectopic History of appendectomy History of colonoscopy History of foot surgery History of tubal ligation Social History Smoking Status: Never smoker alcohol intake: never substance use type: does not use ROS ROS Narrative See HPI Physical Exam Const alert, oriented x3 and no apparent distress General Appearance: cooperative and well developed; Negative for ill appearing HEENT normocephalic and head/scalp atraumatic Eyes PERRL, EOMs intact bilaterally and conjunctivae normal Neck full ROM and no lymphadenopathy Lymph Lymphatic: no lymphadenopathy noted Resp normal respiratory effort and no use of accessory muscles Effort and Inspection: able to speak in complete sentences Auscultation: clear to auscultation bilaterally; Negative for rales, rhonchi or wheezes Cardio regular rate, regular rhythm, S1 normal heart sound, S2 normal heart sound, no murmurs, no rub and no gallops GI Palpation: tender LLQ and RLQ; Negative for guarding, rigid or ascites Extremity no clubbing, cyanosis or edema Skin no rashes or lesions noted Neuro oriented x3, CN's II-XII intact bilaterally and moves all extremities Psych cooperative and affect normal Appearance: well kempt Speech: normal speech Lab / Micro Data Result Diagrams: 08/14/20 04:15 08/14/20 04:15 Labs: Laboratory Results - last 24 hr 08/13/20 08/13/20 08/13/20 20:20 20:20 20:20 WBC 24.5 H RBC 4.82 Hgb 13.0 Hct 42.3 MCV 87.8 MCH 27.0 MCHC 30.7 L RDW Std Deviation 65.0 H RDW Coeff of [place] 20.5 H Plt Count 463 H MPV 10.4 Immature Gran % (Auto) 0.700 Neut % (Auto) 89.1 H Lymph % (Auto) 8.0 L [place] % (Auto) 2.0 Eos % (Auto) 0.0 Baso % (Auto) 0.2 Absolute Neuts (auto) 21.8 H Absolute Lymphs (auto) 1.97 Nucleated RBC % 0 Differential Comment SEE COMMENT Platelet Estimate SLT INC Plt Morphology Comment LARGE RBC Morphology N CHROM Anisocytosis RARE Macrocytosis PT INR Sodium 140 Potassium 2.8 L Chloride 106 Carbon Dioxide 14.0 L Anion Gap 20 H BUN 27 H Creatinine 1.89 H Estim Creat Clear Calc 22.58 Est GFR (MDRD) Af Amer 34 L Est GFR (MDRD) Non-Af 28 L BUN/Creatinine Ratio 14.3 Glucose 285 H Lactic Acid Calcium 9.2 Magnesium Total Bilirubin 0.40 AST 21 ALT 28 Alkaline Phosphatase 180 H Troponin I High Sens 28.6 Total Protein 8.0 Albumin 3.4 Globulin 4.6 H Albumin/Globulin Ratio 0.7 L Triglycerides Cholesterol LDL Cholesterol VLDL Cholesterol HDL Cholesterol Lipase 58 L Urine Color Urine Clarity Urine pH Ur Specific [place] Urine Protein Urine Glucose (UA) Urine Ketones Urine Occult Blood Urine Nitrite Urine Bilirubin Urine Urobilinogen Ur Leukocyte Esterase Urine RBC Urine WBC Ur Squamous Epith Cells Urine Bacteria Urine Mucus Acetone Level 08/13/20 08/13/20 08/13/20 20:20 21:10 21:40 WBC RBC Hgb Hct MCV MCH MCHC RDW Std Deviation RDW Coeff of [place] Plt Count MPV Immature Gran % (Auto) Neut % (Auto) Lymph % (Auto) [place] % (Auto) Eos % (Auto) Baso % (Auto) Absolute Neuts (auto) Absolute Lymphs (auto) Nucleated RBC % Differential Comment Platelet Estimate Plt Morphology Comment RBC Morphology Anisocytosis Macrocytosis PT INR Sodium Potassium Chloride Carbon Dioxide Anion Gap BUN Creatinine Estim Creat Clear Calc Est GFR (MDRD) Af Amer Est GFR (MDRD) Non-Af BUN/Creatinine Ratio Glucose Lactic Acid 10.6 H* Calcium Magnesium 2.4 Total Bilirubin AST ALT Alkaline Phosphatase Troponin I High Sens Total Protein Albumin Globulin Albumin/Globulin Ratio Triglycerides Cholesterol LDL Cholesterol VLDL Cholesterol HDL Cholesterol Lipase Urine Color Nupur Urine Clarity Sl. Cloudy Urine pH 7.0 Ur Specific [place] 1.010 Urine Protein 30 H Urine Glucose (UA) Normal Urine Ketones 5 H Urine Occult Blood 25 H Urine Nitrite Negative Urine Bilirubin 1 H Urine Urobilinogen 4 H Ur Leukocyte Esterase 500 H Urine RBC 0-5 SEEN Urine WBC 25-50 SEEN Ur Squamous Epith Cells 0 SEEN Urine Bacteria 1+ Urine Mucus 0 SEEN Acetone Level 08/13/20 08/13/20 08/14/20 23:15 23:15 01:40 WBC RBC Hgb Hct MCV MCH MCHC RDW Std Deviation RDW Coeff of [place] Plt Count MPV Immature Gran % (Auto) Neut % (Auto) Lymph % (Auto) [place] % (Auto) Eos % (Auto) Baso % (Auto) Absolute Neuts (auto) Absolute Lymphs (auto) Nucleated RBC % Differential Comment Platelet Estimate Plt Morphology Comment RBC Morphology Anisocytosis Macrocytosis PT INR Sodium Potassium Chloride Carbon Dioxide Anion Gap BUN Creatinine Estim Creat Clear Calc Est GFR (MDRD) Af Amer Est GFR (MDRD) Non-Af BUN/Creatinine Ratio Glucose Lactic Acid 7.8 H* Calcium Magnesium Total Bilirubin AST ALT Alkaline Phosphatase Troponin I High Sens 119.3 H* Total Protein Albumin Globulin Albumin/Globulin Ratio Triglycerides Cholesterol LDL Cholesterol VLDL Cholesterol HDL Cholesterol Lipase Urine Color Urine Clarity Urine pH Ur Specific [place] Urine Protein Urine Glucose (UA) Urine Ketones Urine Occult Blood Urine Nitrite Urine Bilirubin Urine Urobilinogen Ur Leukocyte Esterase Urine RBC Urine WBC Ur Squamous Epith Cells Urine Bacteria Urine Mucus Acetone Level NEGATIVE 08/14/20 08/14/20 08/14/20 02:20 04:15 04:15 WBC 29.5 H RBC 4.52 Hgb 12.1 Hct 39.5 MCV 87.4 MCH 26.8 L MCHC 30.6 L RDW Std Deviation 64.8 H RDW Coeff of [place] 20.9 H Plt Count 401 MPV 10.6 Immature Gran % (Auto) 0.800 Neut % (Auto) 91.3 H Lymph % (Auto) 3.9 L [place] % (Auto) 3.8 Eos % (Auto) 0.0 Baso % (Auto) 0.2 Absolute Neuts (auto) 26.9 H Absolute Lymphs (auto) 1.15 Nucleated RBC % 0 Differential Comment SCANNED Platelet Estimate Plt Morphology Comment RBC Morphology Anisocytosis RARE Macrocytosis RARE PT 14.1 INR 1.2 Sodium Potassium Chloride Carbon Dioxide Anion Gap BUN Creatinine Estim Creat Clear Calc Est GFR (MDRD) Af Amer Est GFR (MDRD) Non-Af BUN/Creatinine Ratio Glucose Lactic Acid Calcium Magnesium Total Bilirubin AST ALT Alkaline Phosphatase Troponin I High Sens 215.6 H* Total Protein Albumin Globulin Albumin/Globulin Ratio Triglycerides Cholesterol LDL Cholesterol VLDL Cholesterol HDL Cholesterol Lipase Urine Color Urine Clarity Urine pH Ur Specific [place] Urine Protein Urine Glucose (UA) Urine Ketones Urine Occult Blood Urine Nitrite Urine Bilirubin Urine Urobilinogen Ur Leukocyte Esterase Urine RBC Urine WBC Ur Squamous Epith Cells Urine Bacteria Urine Mucus Acetone Level 08/14/20 08/14/20 04:15 04:15 WBC RBC Hgb Hct MCV MCH MCHC RDW Std Deviation RDW Coeff of [place] Plt Count MPV Immature Gran % (Auto) Neut % (Auto) Lymph % (Auto) [place] % (Auto) Eos % (Auto) Baso % (Auto) Absolute Neuts (auto) Absolute Lymphs (auto) Nucleated RBC % Differential Comment Platelet Estimate Plt Morphology Comment RBC Morphology Anisocytosis Macrocytosis PT INR Sodium 143 Potassium 4.1 Chloride 115 H Carbon Dioxide 19.0 L Anion Gap 9 BUN 26 H Creatinine 1.38 H Estim Creat Clear Calc 30.93 Est GFR (MDRD) Af Amer 48 L Est GFR (MDRD) Non-Af 40 L BUN/Creatinine Ratio 18.8 Glucose 118 H Lactic Acid Calcium 8.2 L Magnesium Total Bilirubin 0.30 AST 27 ALT 27 Alkaline Phosphatase 145 H Troponin I High Sens Total Protein 6.7 Albumin 2.8 L Globulin 3.9 Albumin/Globulin Ratio 0.7 L Triglycerides 80 Cholesterol 131 LDL Cholesterol 66 VLDL Cholesterol 16 HDL Cholesterol 49 Lipase Urine Color Urine Clarity Urine pH Ur Specific [place] Urine Protein Urine Glucose (UA) Urine Ketones Urine Occult Blood Urine Nitrite Urine Bilirubin Urine Urobilinogen Ur Leukocyte Esterase Urine RBC Urine WBC Ur Squamous Epith Cells Urine Bacteria Urine Mucus Acetone Level Micro: Microbiology 08/14/20 00:02 SARS-CoV-2 Antigen (Rapid) - Final Mucosa - Nose ABG Data ABG results: ABG 08/13/20 22:11 Specimen Type JUANITA VBG pH 7.20 L VBG pO2 97 H VBG HCO3 13 L VBG Total CO2 14 L VBG O2 Sat (Calc) 96 H VBG Base Excess -16 L POC Mix VBG pCO2 Pt Tmp 32.3 L O2 Delivery Device Room Air Crit Call To/Read Back Yes Blood Gas Notified Whom dr garrison Blood Gas Notified Time 22:13:23 Rhythm Strip Rhythm Strip: Sinus Rhythm Rate: 93 Ectopy: None Radiology Impression Abdomen/Pelvis CT 08/13/20 20:18 IMPRESSION: Large hiatal hernia. Diverticulosis. Cholelithiasis. Electronically Signed: Lucian Bustillo MD at 21:27 EDT Tel , Service support , Gallbladder Ultrasound 08/13/20 21:41 IMPRESSION: 1. 2.1 cm stone in the neck of the gallbladder. No wall thickening or pericholecystic fluid is seen Electronically Signed: Austen Paul MD at 23:18 EDT , Service support , Chest X-Ray 08/14/20 00:11 IMPRESSION: Stable cardiomegaly. Large hiatal hernia. Electronically Signed: Ishan Mtz MD at 1:19 EDT , Service support , Charges/Coding Visit Charges Inpatient E&M: 37611 Init Hosp L3
[2020-08-14] MEDS: 0.9% Normal Saline 1,000 ML 150 ML IV ×3 (08:04→21:52)
--- NOTE | 2020-08-14 11:20 | CASEMGMT ---
RN CM Face to Face with patient for initial transition planning/care coordination assessment. RN CM introduced self and role at [facility]. Patient lying in bed, alert and oriented. Patient willing to participate in assessment and is able to answer all questions appropriately. Care providers, pharmacy, and demographics verified. Patient wishes to discharge home, denies need for home health at this time. Patient states she has no further needs or concerns at this time. CM to follow for discharge planning needs that may arise. PCP: Candido Specialists: none Preferred Pharmacy: [facility] Insurance: [place], [employer] Prescription Benefit: yes Living Will/HPOA: yes, daughter Katherin James, HPOA LNOK: daugther Living Arrangements: Patient lives alone in a single story home with 3 steps and railing to enter the home. Patient states she is independent at home. Transportation: self, daughter, son DME/HHC: Patient states she has walker at home. Denies previous HHC or SNF. Disposition Plan: Patient to discharge home with family support and follow-up plans in place. Bev PETERSON, RN, CM
[2020-08-14 11:44] LABS: Lactic Acid 1.2 mmol/L (0.4-1.9)
--- NOTE | 2020-08-14 12:00 | CT_ITS ---
EXAM: CT ABDOMEN AND PELVIS WITHOUT INTRAVENOUS CONTRAST : 1950 CLINICAL INDICATION: abdominal pain, possible colitis TECHNIQUE: Helically acquired images were obtained of the abdomen and pelvis without intravenous contrast. This CT exam was performed using one or more of the following dose reduction techniques: automated exposure control, adjustment of the mA and/or kV according to patient size, and/or use of iterative reconstruction technique. This report was created using [employer] report generation technology. CONTRAST: Oral Gastrografin COMPARISON: August 13, 2020 FINDINGS: LOWER THORAX: Mild bibasilar atelectasis. Moderately large hiatal hernia again seen. No cardiomegaly. No significant pericardial effusion. ABDOMEN: LIVER: Unremarkable. Homogeneous. GALLBLADDER AND BILE DUCTS: Large stone present within the gallbladder. No gallbladder distention or wall edema. PANCREAS: Unremarkable. No focal cystic mass. SPLEEN: Unremarkable. Normal size without focal cystic or solid mass. ADRENALS: Unremarkable. No nodules. KIDNEYS AND URETERS: 9 bilateral renal cysts again seen. No follow-up indicated. Normal renal size and position. No hydronephrosis. STOMACH AND BOWEL: Interval development of wall thickening of the transverse, descending and sigmoid: Indicative of colitis. Colon diverticulosis noted without evidence of acute diverticulitis. No stomach or bowel distention. PELVIS: APPENDIX: No evidence of acute appendicitis. BLADDER: Unremarkable. REPRODUCTIVE: Unremarkable as visualized. No mass. ABDOMEN and PELVIS: INTRAPERITONEAL SPACE: Unremarkable. No ascites or other fluid collection. No free air. BONES/JOINTS: Unremarkable. No suspicious lytic or blastic abnormality. SOFT TISSUES: Unremarkable. No discrete abdominal or pelvic wall hernia. VASCULATURE: Unremarkable. Abdominal aorta is non-dilated. LYMPH NODES: Unremarkable. No enlarged lymph nodes. CT/Abdomen/Pel W ORAL Cont Only IMPRESSION: 1. Thickening of the transverse, descending and sigmoid colon wall indicative of colitis. 2. Diverticulosis coli. 3. Cholelithiasis. 4. Hiatal hernia. Individualized dose optimization techniques were used for this CT. at 1132 Reported and signed by: Lester Florez MD Electronically Signed: Lester Florez MD at 11:31 EDT Tel , Service support ,
--- NOTE | 2020-08-14 12:04 | PN_ITS ---
Progress Note CT results noted. Patient has colitis of the transverse and descending and sigmoid colon. Likely ischemic colitis and the patient's volume status has been corrected. Lactate is decreased to a normal level gram her vitals are all stable and she is afebrile. Continue observation with Zosyn and n.p.o. Patient would require surgery if she progresses to have fever or peritoneal signs. Jj Gallardo MD Pager: [facility] [address] [place] [address], [address] [place] [address] Office:
[2020-08-14] MEDS: Aspirin 300 MG Suppository RC (12:19)
[2020-08-14] MEDS: Heparin Injection (Vial) 5,000 UNIT/ML VIAL 5000 UNIT SC ×2 (12:20→21:55)
--- NOTE | 2020-08-14 13:58 | PN.CARD_ITS ---
Subjective Subjective The patient was evaluated earlier this day. She denied any ongoing chest discomfort or difficulty breathing. Her main concern continues to be her abdominal discomfort which appeared to have progressed somewhat since her previous evaluation. Objective Data Vital Signs: Vital Signs Temp Pulse Resp BP Pulse Ox 98.9 F 94 22 H 120/81 H 98 08/14/20 12:00 08/14/20 13:00 08/14/20 13:00 08/14/20 13:00 08/14/20 13:00 Oxygen Flow Rate (L/min) 2 Oxygen Delivery Method Nasal Cannula Weight: 203 lb 0.732 oz Body Mass Index (BMI) 35.9 Intake & Output: Intake and Output for Last 24 Hours 08/12/20 08/13/20 08/14/20 23:59 23:59 23:59 Intake Total 1246.67 / 1246.67 1750 / 1750 Balance 1246.67 / 1246.67 1750 / 1750 Lab / Micro Data Result Diagrams: 08/14/20 04:15 08/14/20 04:15 Labs: Laboratory Results - last 24 hr 08/13/20 08/13/20 08/13/20 20:20 20:20 20:20 WBC 24.5 H RBC 4.82 Hgb 13.0 Hct 42.3 MCV 87.8 MCH 27.0 MCHC 30.7 L RDW Std Deviation 65.0 H RDW Coeff of Roselia 20.5 H Plt Count 463 H MPV 10.4 Immature Gran % (Auto) 0.700 Neut % (Auto) 89.1 H Lymph % (Auto) 8.0 L [place] % (Auto) 2.0 Eos % (Auto) 0.0 Baso % (Auto) 0.2 Absolute Neuts (auto) 21.8 H Absolute Lymphs (auto) 1.97 Nucleated RBC % 0 Differential Comment SEE COMMENT Platelet Estimate SLT INC Plt Morphology Comment LARGE RBC Morphology N CHROM Anisocytosis RARE Macrocytosis PT INR Sodium 140 Potassium 2.8 L Chloride 106 Carbon Dioxide 14.0 L Anion Gap 20 H BUN 27 H Creatinine 1.89 H Estim Creat Clear Calc 22.58 Est GFR (MDRD) Af Amer 34 L Est GFR (MDRD) Non-Af 28 L BUN/Creatinine Ratio 14.3 Glucose 285 H Lactic Acid Calcium 9.2 Magnesium Total Bilirubin 0.40 AST 21 ALT 28 Alkaline Phosphatase 180 H Troponin I High Sens 28.6 Total Protein 8.0 Albumin 3.4 Globulin 4.6 H Albumin/Globulin Ratio 0.7 L Triglycerides Cholesterol LDL Cholesterol VLDL Cholesterol HDL Cholesterol Lipase 58 L Urine Color Urine Clarity Urine pH Ur Specific [place] Urine Protein Urine Glucose (UA) Urine Ketones Urine Occult Blood Urine Nitrite Urine Bilirubin Urine Urobilinogen Ur Leukocyte Esterase Urine RBC Urine WBC Ur Squamous Epith Cells Urine Bacteria Urine Mucus Acetone Level 08/13/20 08/13/20 08/13/20 20:20 21:10 21:40 WBC RBC Hgb Hct MCV MCH MCHC RDW Std Deviation RDW Coeff of Roselia Plt Count MPV Immature Gran % (Auto) Neut % (Auto) Lymph % (Auto) [place] % (Auto) Eos % (Auto) Baso % (Auto) Absolute Neuts (auto) Absolute Lymphs (auto) Nucleated RBC % Differential Comment Platelet Estimate Plt Morphology Comment RBC Morphology Anisocytosis Macrocytosis PT INR Sodium Potassium Chloride Carbon Dioxide Anion Gap BUN Creatinine Estim Creat Clear Calc Est GFR (MDRD) Af Amer Est GFR (MDRD) Non-Af BUN/Creatinine Ratio Glucose Lactic Acid 10.6 H* Calcium Magnesium 2.4 Total Bilirubin AST ALT Alkaline Phosphatase Troponin I High Sens Total Protein Albumin Globulin Albumin/Globulin Ratio Triglycerides Cholesterol LDL Cholesterol VLDL Cholesterol HDL Cholesterol Lipase Urine Color Nupur Urine Clarity Sl. Cloudy Urine pH 7.0 Ur Specific [place] 1.010 Urine Protein 30 H Urine Glucose (UA) Normal Urine Ketones 5 H Urine Occult Blood 25 H Urine Nitrite Negative Urine Bilirubin 1 H Urine Urobilinogen 4 H Ur Leukocyte Esterase 500 H Urine RBC 0-5 SEEN Urine WBC 25-50 SEEN Ur Squamous Epith Cells 0 SEEN Urine Bacteria 1+ Urine Mucus 0 SEEN Acetone Level 08/13/20 08/13/20 08/14/20 23:15 23:15 01:40 WBC RBC Hgb Hct MCV MCH MCHC RDW Std Deviation RDW Coeff of Roselia Plt Count MPV Immature Gran % (Auto) Neut % (Auto) Lymph % (Auto) [place] % (Auto) Eos % (Auto) Baso % (Auto) Absolute Neuts (auto) Absolute Lymphs (auto) Nucleated RBC % Differential Comment Platelet Estimate Plt Morphology Comment RBC Morphology Anisocytosis Macrocytosis PT INR Sodium Potassium Chloride Carbon Dioxide Anion Gap BUN Creatinine Estim Creat Clear Calc Est GFR (MDRD) Af Amer Est GFR (MDRD) Non-Af BUN/Creatinine Ratio Glucose Lactic Acid 7.8 H* Calcium Magnesium Total Bilirubin AST ALT Alkaline Phosphatase Troponin I High Sens 119.3 H* Total Protein Albumin Globulin Albumin/Globulin Ratio Triglycerides Cholesterol LDL Cholesterol VLDL Cholesterol HDL Cholesterol Lipase Urine Color Urine Clarity Urine pH Ur Specific [place] Urine Protein Urine Glucose (UA) Urine Ketones Urine Occult Blood Urine Nitrite Urine Bilirubin Urine Urobilinogen Ur Leukocyte Esterase Urine RBC Urine WBC Ur Squamous Epith Cells Urine Bacteria Urine Mucus Acetone Level NEGATIVE 08/14/20 08/14/20 08/14/20 02:20 04:15 04:15 WBC 29.5 H RBC 4.52 Hgb 12.1 Hct 39.5 MCV 87.4 MCH 26.8 L MCHC 30.6 L RDW Std Deviation 64.8 H RDW Coeff of Roselia 20.9 H Plt Count 401 MPV 10.6 Immature Gran % (Auto) 0.800 Neut % (Auto) 91.3 H Lymph % (Auto) 3.9 L [place] % (Auto) 3.8 Eos % (Auto) 0.0 Baso % (Auto) 0.2 Absolute Neuts (auto) 26.9 H Absolute Lymphs (auto) 1.15 Nucleated RBC % 0 Differential Comment SCANNED Platelet Estimate Plt Morphology Comment RBC Morphology Anisocytosis RARE Macrocytosis RARE PT 14.1 INR 1.2 Sodium Potassium Chloride Carbon Dioxide Anion Gap BUN Creatinine Estim Creat Clear Calc Est GFR (MDRD) Af Amer Est GFR (MDRD) Non-Af BUN/Creatinine Ratio Glucose Lactic Acid Calcium Magnesium Total Bilirubin AST ALT Alkaline Phosphatase Troponin I High Sens 215.6 H* Total Protein Albumin Globulin Albumin/Globulin Ratio Triglycerides Cholesterol LDL Cholesterol VLDL Cholesterol HDL Cholesterol Lipase Urine Color Urine Clarity Urine pH Ur Specific [place] Urine Protein Urine Glucose (UA) Urine Ketones Urine Occult Blood Urine Nitrite Urine Bilirubin Urine Urobilinogen Ur Leukocyte Esterase Urine RBC Urine WBC Ur Squamous Epith Cells Urine Bacteria Urine Mucus Acetone Level 08/14/20 08/14/20 08/14/20 04:15 04:15 11:05 WBC RBC Hgb Hct MCV MCH MCHC RDW Std Deviation RDW Coeff of Roselia Plt Count MPV Immature Gran % (Auto) Neut % (Auto) Lymph % (Auto) [place] % (Auto) Eos % (Auto) Baso % (Auto) Absolute Neuts (auto) Absolute Lymphs (auto) Nucleated RBC % Differential Comment Platelet Estimate Plt Morphology Comment RBC Morphology Anisocytosis Macrocytosis PT INR Sodium 143 Potassium 4.1 Chloride 115 H Carbon Dioxide 19.0 L Anion Gap 9 BUN 26 H Creatinine 1.38 H Estim Creat Clear Calc 30.93 Est GFR (MDRD) Af Amer 48 L Est GFR (MDRD) Non-Af 40 L BUN/Creatinine Ratio 18.8 Glucose 118 H Lactic Acid 1.2 Calcium 8.2 L Magnesium Total Bilirubin 0.30 AST 27 ALT 27 Alkaline Phosphatase 145 H Troponin I High Sens Total Protein 6.7 Albumin 2.8 L Globulin 3.9 Albumin/Globulin Ratio 0.7 L Triglycerides 80 Cholesterol 131 LDL Cholesterol 66 VLDL Cholesterol 16 HDL Cholesterol 49 Lipase Urine Color Urine Clarity Urine pH Ur Specific [place] Urine Protein Urine Glucose (UA) Urine Ketones Urine Occult Blood Urine Nitrite Urine Bilirubin Urine Urobilinogen Ur Leukocyte Esterase Urine RBC Urine WBC Ur Squamous Epith Cells Urine Bacteria Urine Mucus Acetone Level Micro: Microbiology 08/14/20 00:02 Mucosa - Nose SARS-CoV-2 Antigen (Rapid) - Final ABG Data ABG results: ABG 08/13/20 22:11 Specimen Type JUANITA VBG pH 7.20 L VBG pO2 97 H VBG HCO3 13 L VBG Total CO2 14 L VBG O2 Sat (Calc) 96 H VBG Base Excess -16 L POC Mix VBG pCO2 Pt Tmp 32.3 L O2 Delivery Device Room Air Crit Call To/Read Back Yes Blood Gas Notified Whom dr garrison Blood Gas Notified Time 22:13:23 Rhythm Strip Rhythm Strip: Sinus Rhythm Rate: 93 Ectopy: None Cardiology Labs/Tests 08/13/20 20:20: Sodium 140, Potassium 2.8 L, Chloride 106, Carbon Dioxide 14.0 L , Anion Gap 20 H, BUN 27 H, Creatinine 1.89 H, Est GFR (MDRD) Af Amer 34 L, Est GFR (MDRD) Non-Af 28 L, BUN/Creatinine Ratio 14.3, Glucose 285 H, Calcium 9.2, Total Bilirubin 0.40 08/13/20 20:20: WBC 24.5 H, RBC 4.82, Hgb 13.0, Hct 42.3, MCV 87.8, MCH 27.0, MCHC 30.7 L, Plt Count 463 H, MPV 10.4, Immature Gran % (Auto) 0.700, Neut % (Auto) 89.1 H, Lymph % (Auto) 8.0 L, [place] % (Auto) 2.0, Eos % (Auto) 0.0, Baso % (Auto) 0.2, Absolute Neuts (auto) 21.8 H, Nucleated RBC % 0 08/13/20 20:20: Magnesium 2.4 08/13/20 21:10: Lactic Acid 10.6 H* 08/13/20 21:40: Urine Color Nupur, Urine Clarity Sl. Cloudy, Urine pH 7.0, Ur Specific [place] 1.010, Urine Protein 30 H, Urine Glucose (UA) Normal, Urine Ketones 5 H, Urine Occult Blood 25 H, Urine Nitrite Negative, Urine Bilirubin 1 H, Urine Urobilinogen 4 H, Ur Leukocyte Esterase 500 H, Urine RBC 0-5 SEEN, Urine WBC 25-50 SEEN 08/13/20 22:11: VBG pH 7.20 L, VBG pO2 97 H, VBG HCO3 13 L, VBG O2 Sat (Calc) 96 H, VBG Base Excess -16 L 08/14/20 01:40: Lactic Acid 7.8 H* 08/14/20 04:15: WBC 29.5 H, RBC 4.52, Hgb 12.1, Hct 39.5, MCV 87.4, MCH 26.8 L, MCHC 30.6 L, Plt Count 401, MPV 10.6, Immature Gran % (Auto) 0.800, Neut % (Auto) 91.3 H, Lymph % (Auto) 3.9 L, [place] % (Auto) 3.8, Eos % (Auto) 0.0, Baso % (Auto) 0.2, Absolute Neuts (auto) 26.9 H, Nucleated RBC % 0 08/14/20 04:15: PT 14.1, INR 1.2 08/14/20 04:15: Sodium 143, Potassium 4.1, Chloride 115 H, Carbon Dioxide 19.0 L , Anion Gap 9, BUN 26 H, Creatinine 1.38 H, Est GFR (MDRD) Af Amer 48 L, Est GFR (MDRD) Non-Af 40 L, BUN/Creatinine Ratio 18.8, Glucose 118 H, Calcium 8.2 L, Total Bilirubin 0.30 08/14/20 04:15: Triglycerides 80, Cholesterol 131, LDL Cholesterol 66, VLDL Cholesterol 16, HDL Cholesterol 49 08/14/20 11:05: Lactic Acid 1.2 Rhythm: Sinus rhythm EKG: Sinus rhythm; nonspecific T wave abnormality; compared to the previous ECGs the previous ST segment abnormality appears to be less prominent at this time ECHO: See below Stress Test: Radiography Diagnostic Testing: Radiology Impression Abdomen/Pelvis CT 08/13/20 20:18 IMPRESSION: Large hiatal hernia. Diverticulosis. Cholelithiasis. Electronically Signed: Lucian Bustillo MD at 21:27 EDT Tel , Service support , Gallbladder Ultrasound 08/13/20 21:41 IMPRESSION: 1. 2.1 cm stone in the neck of the gallbladder. No wall thickening or pericholecystic fluid is seen Electronically Signed: Austen Paul MD at 23:18 EDT , Service support , Chest X-Ray 08/14/20 00:11 IMPRESSION: Stable cardiomegaly. Large hiatal hernia. Electronically Signed: Ishan Mtz MD at 1:19 EDT , Service support , Echocardiogram 08/14/20 01:57 Interpretation Summary The study was technically difficult. Contrast injection was performed. Left ventricular systolic function is normal. The estimated ejection fraction is 70 %. Trivial mitral valve insufficiency. Trivial tricuspid valve insufficiency. Mild focal aortic valve calcification. Epicardial fat. Unable to estimate RV systolic pressure/pulmonary artery pressure due to technically difficult study. Diastolic function is indeterminate. Ordering Physician: Ashok Bradshaw Referring Physician: Toño Rey Performed By: Chivo Ruth RCS Abdomen CT 08/14/20 12:00 IMPRESSION: 1. Thickening of the transverse, descending and sigmoid colon wall indicative of colitis. 2. Diverticulosis coli. 3. Cholelithiasis. 4. Hiatal hernia. Individualized dose optimization techniques were used for this CT. at 1132 Reported and signed by: Lester Florez MD Electronically Signed: Lester Florez MD at 11:31 EDT Tel , Service support , Physical Exam Const alert, oriented x3 and no apparent distress Orientation / Consciousness: awake HEENT normocephalic, head/scalp atraumatic and hearing grossly normal bilaterally Eyes PERRL, EOMs intact bilaterally, conjunctivae normal and no scleral icterus Neck full ROM, supple, no JVD and no carotid bruits Chest inspection of chest normal and palpation of chest normal Resp normal respiratory effort and clear to auscultation bilaterally Cardio regular rate, regular rhythm, S1 normal heart sound and S2 normal heart sound GI GI Narrative: Diminished bowel sounds; positive tenderness to palpation Extremity no pedal edema Skin Skin Narrative: Rash: Right forearm Neuro oriented x3, CN's II-XII intact bilaterally and moves all extremities Psych mental status grossly normal Assessment & Plan Assessment/Plan (1) Non-ST elevation (NSTEMI) myocardial infarction: PLAN: The patient has abnormal troponin I levels compatible with a non-ST segment elevation PA. At the present time there is concern that this is a type II event secondary to supply demand mismatch secondary to the patient's ongoing concerns of what appears to be an ischemic mediated colitis and a possible UTI and a possible sep sis syndrome as noted by a previously elevated lactic acid levels. Her troponin I levels have remained elevated. They can be followed. Her ECG is as noted with the previous ST segment abnormality being less prominent at this time. Her transthoracic echocardiogram is as noted and demonstrates overall preserved left ventricular wall motion and systolic function. At the present time the patient is being monitored. She will continue cardiovascular medical therapy as she is able. She may eventually need further evaluation with diagnostic cardiac catheterization. However, as previously noted, it would be reasonable to hold on this procedure, barring an unforeseen urgent/emergent event, to allow her noncardiac issues with concerns of an ischemic mediated colitis, UTI, and a sepsis syndrome to improve. (2) Renal insufficiency: PLAN: The patient does have renal insufficiency. This may be secondary to volume loss based upon her marked nausea/emesis. However she does have an element of baseline chronic renal insufficiency. Thus her renal function will need to be followed as her volume status stabilizes, etc. (3) Hypokalemia: PLAN: The patient was noted to be hypokalemic which may be a result of her emesis. This could contribute to electrocardiographic changes as well as those related to the possibility of LVH and/or myocardial ischemia. She has received potassium supplementation. Her electrolytes will be followed. (4) Lactic acidosis: PLAN: The patient was noted to have elevated lactic acid levels. The etiology appears concerning from an underlying ischemic mediated colitis with her UTI and a sepsis syndrome. (5) Acute UTI: PLAN: The patient was diagnosed with a UTI. (6) Leucocytosis: QUALIFIERS: Leukocytosis type: unspecified Qualified Code(s): D72.829 - Elevated white blood cell count, unspecified PLAN: The patient does have leukocytosis. This may be an acute reaction to cardiac or noncardiac issues especially with respect to her concerns of her acute abdominal process. However it may be related to her recent initiation of corticosteroid therapy for what she refers to as poison rich on her right forearm. (7) Hypertension: QUALIFIERS: Hypertension type: essential hypertension Qualified Code(s): I10 - Essential (primary) hypertension PLAN: The patient has a history of hypertension. Her blood pressure will need to be monitored and cared for as best as possible. (8) Anemia: QUALIFIERS: Anemia type: unspecified type Qualified Code(s): D64.9 - Anemia, unspecified PLAN: The patient has a history of anemia. He states since being on iron supplement her hemoglobin has improved. She was to go through endoscopy procedures as part of her anemia evaluation. This appears to be placed on hold at the moment based upon her acute findings. Her anemia, depending upon etiology, significance, etc., may or may not play a role in the future with respect to ongoing cardiac evaluation and/or therapy. Addt'l Comments The patient's case was discussed and reviewed with the patient as well as with Dr. Wakefield. This note was generated using a voice recognition system and there may be incorrect words, spelling or punctuation that were not noted when reviewing the office note prior to saving.
--- NOTE | 2020-08-14 15:43 | PN.HOSP_ITS ---
Subjective Subjective Patient states that her abdominal pain is somewhat better today. She states that she was prepping for a colonoscopy which was to be performed today but developed acute onset abdominal pain diarrhea nausea and vomiting and was acutely weak therefore she called the squad and came to the emergency department. She has had no further emesis since last evening. Objective Data Objective Data Vital Signs: Vital Signs Temp Pulse Resp BP Pulse Ox 99.2 F H 88 18 142/86 H 96 08/14/20 15:00 08/14/20 15:05 08/14/20 15:00 08/14/20 15:00 08/14/20 15:00 Oxygen Flow Rate (L/min) 2 Oxygen Delivery Method Nasal Cannula Weight: 92.1 kg Body Mass Index (BMI) 35.9 Intake & Output: Intake and Output for Last 24 Hours 08/12/20 08/13/20 08/14/20 23:59 23:59 23:59 Intake Total 1246.67 / 1246.67 2750 / 2750 Balance 1246.67 / 1246.67 2750 / 2750 Lab / Micro Data Result Diagrams: 08/14/20 04:15 08/14/20 04:15 Labs: Laboratory Results - last 24 hr 08/13/20 08/13/20 08/13/20 20:20 20:20 20:20 WBC 24.5 H RBC 4.82 Hgb 13.0 Hct 42.3 MCV 87.8 MCH 27.0 MCHC 30.7 L RDW Std Deviation 65.0 H RDW Coeff of Roselia 20.5 H Plt Count 463 H MPV 10.4 Immature Gran % (Auto) 0.700 Neut % (Auto) 89.1 H Lymph % (Auto) 8.0 L Douglas % (Auto) 2.0 Eos % (Auto) 0.0 Baso % (Auto) 0.2 Absolute Neuts (auto) 21.8 H Absolute Lymphs (auto) 1.97 Nucleated RBC % 0 Differential Comment SEE COMMENT Platelet Estimate SLT INC Plt Morphology Comment LARGE RBC Morphology N CHROM Anisocytosis RARE Macrocytosis PT INR Sodium 140 Potassium 2.8 L Chloride 106 Carbon Dioxide 14.0 L Anion Gap 20 H BUN 27 H Creatinine 1.89 H Estim Creat Clear Calc 22.58 Est GFR (MDRD) Af Amer 34 L Est GFR (MDRD) Non-Af 28 L BUN/Creatinine Ratio 14.3 Glucose 285 H Lactic Acid Calcium 9.2 Magnesium Total Bilirubin 0.40 AST 21 ALT 28 Alkaline Phosphatase 180 H Troponin I High Sens 28.6 Total Protein 8.0 Albumin 3.4 Globulin 4.6 H Albumin/Globulin Ratio 0.7 L Triglycerides Cholesterol LDL Cholesterol VLDL Cholesterol HDL Cholesterol Lipase 58 L Urine Color Urine Clarity Urine pH Ur Specific [place] Urine Protein Urine Glucose (UA) Urine Ketones Urine Occult Blood Urine Nitrite Urine Bilirubin Urine Urobilinogen Ur Leukocyte Esterase Urine RBC Urine WBC Ur Squamous Epith Cells Urine Bacteria Urine Mucus Acetone Level 08/13/20 08/13/20 08/13/20 20:20 21:10 21:40 WBC RBC Hgb Hct MCV MCH MCHC RDW Std Deviation RDW Coeff of Roselia Plt Count MPV Immature Gran % (Auto) Neut % (Auto) Lymph % (Auto) Douglas % (Auto) Eos % (Auto) Baso % (Auto) Absolute Neuts (auto) Absolute Lymphs (auto) Nucleated RBC % Differential Comment Platelet Estimate Plt Morphology Comment RBC Morphology Anisocytosis Macrocytosis PT INR Sodium Potassium Chloride Carbon Dioxide Anion Gap BUN Creatinine Estim Creat Clear Calc Est GFR (MDRD) Af Amer Est GFR (MDRD) Non-Af BUN/Creatinine Ratio Glucose Lactic Acid 10.6 H* Calcium Magnesium 2.4 Total Bilirubin AST ALT Alkaline Phosphatase Troponin I High Sens Total Protein Albumin Globulin Albumin/Globulin Ratio Triglycerides Cholesterol LDL Cholesterol VLDL Cholesterol HDL Cholesterol Lipase Urine Color Nupur Urine Clarity Sl. Cloudy Urine pH 7.0 Ur Specific [place] 1.010 Urine Protein 30 H Urine Glucose (UA) Normal Urine Ketones 5 H Urine Occult Blood 25 H Urine Nitrite Negative Urine Bilirubin 1 H Urine Urobilinogen 4 H Ur Leukocyte Esterase 500 H Urine RBC 0-5 SEEN Urine WBC 25-50 SEEN Ur Squamous Epith Cells 0 SEEN Urine Bacteria 1+ Urine Mucus 0 SEEN Acetone Level 08/13/20 08/13/20 08/14/20 23:15 23:15 01:40 WBC RBC Hgb Hct MCV MCH MCHC RDW Std Deviation RDW Coeff of Roselia Plt Count MPV Immature Gran % (Auto) Neut % (Auto) Lymph % (Auto) Douglas % (Auto) Eos % (Auto) Baso % (Auto) Absolute Neuts (auto) Absolute Lymphs (auto) Nucleated RBC % Differential Comment Platelet Estimate Plt Morphology Comment RBC Morphology Anisocytosis Macrocytosis PT INR Sodium Potassium Chloride Carbon Dioxide Anion Gap BUN Creatinine Estim Creat Clear Calc Est GFR (MDRD) Af Amer Est GFR (MDRD) Non-Af BUN/Creatinine Ratio Glucose Lactic Acid 7.8 H* Calcium Magnesium Total Bilirubin AST ALT Alkaline Phosphatase Troponin I High Sens 119.3 H* Total Protein Albumin Globulin Albumin/Globulin Ratio Triglycerides Cholesterol LDL Cholesterol VLDL Cholesterol HDL Cholesterol Lipase Urine Color Urine Clarity Urine pH Ur Specific [place] Urine Protein Urine Glucose (UA) Urine Ketones Urine Occult Blood Urine Nitrite Urine Bilirubin Urine Urobilinogen Ur Leukocyte Esterase Urine RBC Urine WBC Ur Squamous Epith Cells Urine Bacteria Urine Mucus Acetone Level NEGATIVE 08/14/20 08/14/20 08/14/20 02:20 04:15 04:15 WBC 29.5 H RBC 4.52 Hgb 12.1 Hct 39.5 MCV 87.4 MCH 26.8 L MCHC 30.6 L RDW Std Deviation 64.8 H RDW Coeff of Roselia 20.9 H Plt Count 401 MPV 10.6 Immature Gran % (Auto) 0.800 Neut % (Auto) 91.3 H Lymph % (Auto) 3.9 L [place] % (Auto) 3.8 Eos % (Auto) 0.0 Baso % (Auto) 0.2 Absolute Neuts (auto) 26.9 H Absolute Lymphs (auto) 1.15 Nucleated RBC % 0 Differential Comment SCANNED Platelet Estimate Plt Morphology Comment RBC Morphology Anisocytosis RARE Macrocytosis RARE PT 14.1 INR 1.2 Sodium Potassium Chloride Carbon Dioxide Anion Gap BUN Creatinine Estim Creat Clear Calc Est GFR (MDRD) Af Amer Est GFR (MDRD) Non-Af BUN/Creatinine Ratio Glucose Lactic Acid Calcium Magnesium Total Bilirubin AST ALT Alkaline Phosphatase Troponin I High Sens 215.6 H* Total Protein Albumin Globulin Albumin/Globulin Ratio Triglycerides Cholesterol LDL Cholesterol VLDL Cholesterol HDL Cholesterol Lipase Urine Color Urine Clarity Urine pH Ur Specific [place] Urine Protein Urine Glucose (UA) Urine Ketones Urine Occult Blood Urine Nitrite Urine Bilirubin Urine Urobilinogen Ur Leukocyte Esterase Urine RBC Urine WBC Ur Squamous Epith Cells Urine Bacteria Urine Mucus Acetone Level 08/14/20 08/14/20 08/14/20 04:15 04:15 11:05 WBC RBC Hgb Hct MCV MCH MCHC RDW Std Deviation RDW Coeff of Roselia Plt Count MPV Immature Gran % (Auto) Neut % (Auto) Lymph % (Auto) Douglas % (Auto) Eos % (Auto) Baso % (Auto) Absolute Neuts (auto) Absolute Lymphs (auto) Nucleated RBC % Differential Comment Platelet Estimate Plt Morphology Comment RBC Morphology Anisocytosis Macrocytosis PT INR Sodium 143 Potassium 4.1 Chloride 115 H Carbon Dioxide 19.0 L Anion Gap 9 BUN 26 H Creatinine 1.38 H Estim Creat Clear Calc 30.93 Est GFR (MDRD) Af Amer 48 L Est GFR (MDRD) Non-Af 40 L BUN/Creatinine Ratio 18.8 Glucose 118 H Lactic Acid 1.2 Calcium 8.2 L Magnesium Total Bilirubin 0.30 AST 27 ALT 27 Alkaline Phosphatase 145 H Troponin I High Sens Total Protein 6.7 Albumin 2.8 L Globulin 3.9 Albumin/Globulin Ratio 0.7 L Triglycerides 80 Cholesterol 131 LDL Cholesterol 66 VLDL Cholesterol 16 HDL Cholesterol 49 Lipase Urine Color Urine Clarity Urine pH Ur Specific [place] Urine Protein Urine Glucose (UA) Urine Ketones Urine Occult Blood Urine Nitrite Urine Bilirubin Urine Urobilinogen Ur Leukocyte Esterase Urine RBC Urine WBC Ur Squamous Epith Cells Urine Bacteria Urine Mucus Acetone Level Micro: Microbiology 08/14/20 00:02 Mucosa - Nose SARS-CoV-2 Antigen (Rapid) - Final ABG Data ABG results: ABG 08/13/20 22:11 Specimen Type JUANITA VBG pH 7.20 L VBG pO2 97 H VBG HCO3 13 L VBG Total CO2 14 L VBG O2 Sat (Calc) 96 H VBG Base Excess -16 L POC Mix VBG pCO2 Pt Tmp 32.3 L O2 Delivery Device Room Air Crit Call To/Read Back Yes Blood Gas Notified Whom dr garrison Blood Gas Notified Time 22:13:23 Radiography Diagnostic Testing: Radiology Impression Abdomen/Pelvis CT 08/13/20 20:18 IMPRESSION: Large hiatal hernia. Diverticulosis. Cholelithiasis. Electronically Signed: Lucian Bustillo MD at 21:27 EDT Tel , Service support , Gallbladder Ultrasound 08/13/20 21:41 IMPRESSION: 1. 2.1 cm stone in the neck of the gallbladder. No wall thickening or pericholecystic fluid is seen Electronically Signed: Austen Paul MD at 23:18 EDT , Service support , Chest X-Ray 08/14/20 00:11 IMPRESSION: Stable cardiomegaly. Large hiatal hernia. Electronically Signed: Ishan Mtz MD at 1:19 EDT , Service support , Echocardiogram 08/14/20 01:57 Interpretation Summary The study was technically difficult. Contrast injection was performed. Left ventricular systolic function is normal. The estimated ejection fraction is 70 %. Trivial mitral valve insufficiency. Trivial tricuspid valve insufficiency. Mild focal aortic valve calcification. Epicardial fat. Unable to estimate RV systolic pressure/pulmonary artery pressure due to technically difficult study. Diastolic function is indeterminate. Ordering Physician: Ashok Bradshaw Referring Physician: Toño Rey Performed By: Chivo Ruth RCS Abdomen CT 08/14/20 12:00 IMPRESSION: 1. Thickening of the transverse, descending and sigmoid colon wall indicative of colitis. 2. Diverticulosis coli. 3. Cholelithiasis. 4. Hiatal hernia. Individualized dose optimization techniques were used for this CT. at 1132 Reported and signed by: Lester Florez MD Electronically Signed: Lester Florez MD at 11:31 EDT Tel , Service support , Rhythm Strip Rhythm Strip: Sinus Rhythm Rate: 93 Ectopy: None Physical Exam Const alert, oriented x3, no apparent distress and well nourished Constitutional Narrative: Obese older white female, sitting in bed, appears mildly uncomfortable but nontoxic, pleasant Exam Limitations: no limitations HEENT head/scalp atraumatic, moist oral mucous membranes and oropharynx normal Head and Scalp: normocephalic Mouth: oral and palatal mucosa normal Eyes PERRL, EOMs intact bilaterally and conjunctivae normal Neck no lymphadenopathy, supple, no JVD and no carotid bruits Neck Narrative: Trachea midline, thyroid of normal size without nodules with palpation Resp normal respiratory effort, no retractions, no use of accessory muscles and clear to auscultation bilaterally Auscultation: Negative for crackles, rales, rhonchi or wheezes Cardio regular rate, regular rhythm, S1 normal heart sound, S2 normal heart sound, no murmurs, no rub, no gallops, no clicks and no JVD GI soft to palpation GI Narrative: Mild diffuse tenderness with more intense tenderness upon palpation at bilateral lower quadrants, nonrigid Auscultation: hyperactive bowel sounds Palpation: tender; Negative for guarding or hernia Extremity normal to inspection and no clubbing, cyanosis or edema Peripheral Pulses: Yes pulses 2+ throughout Skin no rashes or lesions noted, no wounds, skin turgor normal, no jaundice, no petechiae and no mottling Neuro oriented x3, CN's II-XII intact bilaterally and moves all extremities Sensorium / Orientation: awake, alert, oriented to person, oriented to place and oriented to time Speech: speech normal Psych affect normal Psych Narrative: Very pleasant Assessment & Plan Assessment/Plan (1) Septic shock: (2) Acute kidney injury: (3) Lactic acidosis: (4) Colitis: PLAN: Septic shock secondary to colitis -Lactate was 10 on admission -Was fluid responsive and trending down -Continue antibiotics--> Zosyn -Exam is concerning for intra-abdominal process and repeat CT done today showed thickening of the transverse descending and sigmoid: Indicative of colitis -General surgery is following but no acute surgical intervention at this time -Suspect ischemic -Infectious panel negative in the emergency department -Continue n.p.o. -Blood and urine cultures are pending -Covid negative -Clinically improving Ischemic colitis -See above Leukocytosis -Suspect reactive related to above processes -Repeat CBC in a.m. Lactic acidosis -Resolving NSTEMI -Suspect demand ischemia with supply/demand mismatch and NSTEMI type II -Cardiology is following -Echo performed and shows preserved LV function and wall motion -Per cardiology note patient may need further cardiology work-up including diagnostic LHC when she is more clinically stable -We will initiate more medical therapy once patient is able to take p.o. medications -Rectal aspirin given today Possible UTI -UA is suspicious for possible urinary tract infection -Continue antibiotics until cultures result DANIELLE on CKD stage IIIa -DANIELLE resolving -Serum creatinine was 1.89 at admission -Appears baseline serum creatinine is 1.0-1.3 -Markedly improved today with a serum creatinine of 1.38 -BMP in a.m. History of gout -continue allopurinol once patient is able to take p.o. Hypertension -Restart home medications once patient able to take p.o. Depression -Continue Effexor once patient is able to take p.o. DVT prophylaxis -Continue subcu heparin CODE STATUS -Full code Charges/Coding Visit Charges Inpatient E&M: 48392 Subs Hosp L2
[2020-08-14] MEDS: 0.9% Saline Lock 10 ML Syringe IV ×2 (21:56→21:58)
[2020-08-15] VITALS (16 sets, daily range): BP systolic 135–183; BP diastolic 61–89; PULSE 74–86; RESP 14–22; TEMP 36.4–37.1; O2SAT 92–100
[2020-08-15 04:17] LABS: Absolute Lymphocyte Count 1.74 X10^3/uL (0.83-4.51); Absolute Neutrophil Count 6.9 X10^3/uL (2.0-7.7); Basophil# 0.06 X10^3/uL; Basophil% 0.6 % (0-1); Eosinophil# 0.19 X10^3/uL; Hematocrit 36.1 % (37-47); Hemoglobin 10.8 g/dL (12.0-15.0); Lymphocyte # 1.74 X10^3/ul (0.83-4.51); Lymphocyte % 18.3 % (19-41); Mean Corp Hgb Conc 29.9 g/dL (32-36); Mean Corpuscular Hgb 26.9 pg (27.0-32.0); Mean Corpuscular Volume 89.8 fL (81-99); Mean Platelet Vol. 10.7 fl (6.2-12.0); Monocyte# 0.59 X10^3/uL; Monocyte% 6.2 % (0-10); NRBC Flagged by Analyzer 0 % (0-5); Neutrophil # 6.87 X10^3/uL (2.7-7.7); Neutrophil % 72.5 % (47-70); POSITIVE MORPHOLOGY YES; Platelet Count 285 K/mm3 (150-450); RBC Distribution Width CV 21.1 % (11.6-14.6); RBC Distribution Width SD 67.7 fl (35.1-43.9); Red Blood Count 4.02 M/mm3 (4.2-5.4); White Blood Count 9.5 K/mm3 (4.4-11.0)
[2020-08-15 04:18] LABS: Differential Indicated SCAN CRITERIA MET
[2020-08-15 04:32] LABS: Differential Comment SCANNED
[2020-08-15 04:33] LABS: Anisocytosis 1+; Macrocytosis RARE; Microcytosis RARE
[2020-08-15] MEDS: 0.9% Normal Saline 1,000 ML 150 ML IV (04:33)
[2020-08-15 04:45] LABS: ALB/GLOB Ratio 0.7 RATIO (0.9-2.4); AST(SGOT) 21 U/L (15-37); Alanine Aminotransfer ALT/SGPT 20 U/L (13-56); Albumin, Serum 2.2 g/dL (3.2-5.0); Alkaline Phosphatase 106 U/L (45-117); Anion Gap 3 (5-15); BUN 25 mg/dL (7-18); BUN/Creat Ratio 24.5 RATIO (10-20); Calcium,Total 7.4 mg/dL (8.5-10.1); Chloride 121 mmol/L (98-107); Creatinine, Serum 1.02 mg/dL (0.55-1.02); EST Glomerular Filtration Rate 57 mL/min (>60); Est Glom Filt Rate - Afr Amer 69 mL/min (>60); Estimated Creatinine Clearance 41.85 ml/min; Globulin 3.2 g/dL (2.2-4.2); Glucose 77 mg/dL (74-106); Potassium 4.1 mmol/L (3.5-5.1); Protein, Total 5.4 g/dL (6.4-8.2); Sodium Level 144 mmol/L (136-145); Troponin-I HS 149.7 pg/mL (3.0-53.7)
--- NOTE | 2020-08-15 05:55 | EKG12_ITS ---
Test Reason : AM EKG Blood Pressure : / mmHG Vent. Rate : 079 BPM Atrial Rate : 079 BPM P-R Int : 160 ms QRS Dur : 084 ms QT Int : 386 ms P-R-T Axes : 050 -17 084 degrees QTc Int : 442 ms Normal sinus rhythm Inferior infarct , age undetermined Abnormal ECG Confirmed by LITZY MALHOTRA, KARLI ([id number]), scientific editor MARLENE DIAZ ([id number]) on 08/19/2020 10:52:42 AM Referred By: DIPIKA Confirmed By:KARLI MCGHEE MD
--- NOTE | 2020-08-15 06:21 | PN.CC_ITS ---
Assessment & Plan Assessment/Plan (1) Leucocytosis: QUALIFIERS: Leukocytosis type: unspecified Qualified Code(s): D72.829 - Elevated white blood cell count, unspecified (2) Renal insufficiency: (3) Acute kidney injury: (4) Hypertension: QUALIFIERS: Hypertension type: essential hypertension Qualified Code(s): I10 - Essential (primary) hypertension (5) Depression: QUALIFIERS: Depression Type: unspecified Qualified Code(s): F32.9 - Major depressive disorder, single episode, unspecified PLAN: RECOMMENDATIONS: 1. P.o. intake per surgery 2. Increase activity as tolerated 3. Continue empiric antibiotics 4. Wean oxygen as tolerated 5. Okay to transfer from the intensive care unit IMPRESSIONS: 1. Septic shock by lactate criteria secondary to colitis Patient with significant colitis on repeat imaging of the abdomen. Patient has been n.p.o. and on Zosyn therapy. Patient continues to improve from a clinical standpoint with less pain today. Defer to surgery on if patient can take p.o. today. Patient is likely hemodynamically stable enough to leave the intensive care unit to [facility]. Anticipate minimal oxygen requirement secondary to atelectasis associated with abdominal pain. 2. Elevated troponin Unclear etiology. Clinical suspicion for supply demand mismatch. Cardiology is following. Patient is on telemetry. Obtain EKG if necessary. 3. Acute kidney injury Resolved. Baseline creatinine appears to be approximately 1. This may be prerenal secondary to bowel prep. Patient did not receive a significant amount of bowel prep. Elevation occurred prior to any contrast, so contrast-induced nephropathy would be unlikely. 4. Obesity/advanced age/hiatal hernia/hypertension Complicates care, management, recovery and prognosis. Recommend elevation of head of bed. Patient may benefit from initiation of a PPI. Could restart lisinopril from my perspective Subjective Subjective Patient did well overnight. No acute issues were reported. Patient reports improvement in abdominal pain. Patient is not reporting any chest pain, cough, nausea or vomiting. Objective Data Objective Data Vital Signs: Vital Signs Temp Pulse Resp BP Pulse Ox 36.7 C 80 14 157/71 H 95 08/15/20 04:00 08/15/20 06:00 08/15/20 06:00 08/15/20 06:00 08/15/20 06:00 Oxygen Flow Rate (L/min) 2 Oxygen Delivery Method Nasal Cannula Weight: 94 kg Body Mass Index (BMI) 35.9 Intake & Output: Intake and Output for Last 24 Hours 08/13/20 08/14/20 08/15/20 23:59 23:59 23:59 Intake Total 1246.67 / 1246.67 3864.5 / 3864.5 1111.75 / 1111.75 Balance 1246.67 / 1246.67 3864.5 / 3864.5 1111.75 / 1111.75 Lab / Micro Data Result Diagrams: 08/15/20 04:05 08/15/20 04:05 Labs: Laboratory Results - last 24 hr 08/14/20 08/15/20 08/15/20 11:05 04:05 04:05 WBC 9.5 RBC 4.02 L Hgb 10.8 L Hct 36.1 L MCV 89.8 MCH 26.9 L MCHC 29.9 L RDW Std Deviation 67.7 H RDW Coeff of Roselia 21.1 H Plt Count 285 MPV 10.7 Immature Gran % (Auto) 0.400 Neut % (Auto) 72.5 H Lymph % (Auto) 18.3 L Lewis % (Auto) 6.2 Eos % (Auto) 2.0 Baso % (Auto) 0.6 Absolute Neuts (auto) 6.9 Absolute Lymphs (auto) 1.74 Nucleated RBC % 0 Differential Comment SCANNED Anisocytosis 1+ Microcytosis RARE Macrocytosis RARE Sodium 144 Potassium 4.1 Chloride 121 H Carbon Dioxide 20.0 L Anion Gap 3 L BUN 25 H Creatinine 1.02 Estim Creat Clear Calc 41.85 Est GFR (MDRD) Af Amer 69 Est GFR (MDRD) Non-Af 57 L BUN/Creatinine Ratio 24.5 H Glucose 77 Lactic Acid 1.2 Calcium 7.4 L Total Bilirubin 0.30 AST 21 ALT 20 Alkaline Phosphatase 106 Troponin I High Sens 149.7 H* Total Protein 5.4 L Albumin 2.2 L Globulin 3.2 Albumin/Globulin Ratio 0.7 L Micro: Microbiology 08/14/20 00:02 Mucosa - Nose SARS-CoV-2 Antigen (Rapid) - Final Radiography Diagnostic Testing: Radiology Impression Echocardiogram 08/14/20 01:57 Interpretation Summary The study was technically difficult. Contrast injection was performed. Left ventricular systolic function is normal. The estimated ejection fraction is 70 %. Trivial mitral valve insufficiency. Trivial tricuspid valve insufficiency. Mild focal aortic valve calcification. Epicardial fat. Unable to estimate RV systolic pressure/pulmonary artery pressure due to technically difficult study. Diastolic function is indeterminate. Ordering Physician: Ashok Bradshaw Referring Physician: Toño Rey Performed By: Chivo Ruth RCS Abdomen CT 08/14/20 12:00 IMPRESSION: 1. Thickening of the transverse, descending and sigmoid colon wall indicative of colitis. 2. Diverticulosis coli. 3. Cholelithiasis. 4. Hiatal hernia. Individualized dose optimization techniques were used for this CT. at 1132 Reported and signed by: Lester Florez MD Electronically Signed: Lester Florez MD at 11:31 EDT Tel , Service support , Rhythm Strip Rhythm Strip: Sinus Rhythm Rate: 93 Ectopy: None Physical Exam Const alert, oriented x3 and no apparent distress General Appearance: cooperative and well developed; Negative for ill appearing HEENT normocephalic and head/scalp atraumatic Eyes PERRL, EOMs intact bilaterally and conjunctivae normal Neck full ROM and no lymphadenopathy Lymph Lymphatic: no lymphadenopathy noted Resp normal respiratory effort and no use of accessory muscles Effort and Inspection: able to speak in complete sentences Auscultation: clear to auscultation bilaterally; Negative for rales, rhonchi or wheezes Cardio regular rate, regular rhythm, S1 normal heart sound, S2 normal heart sound, no murmurs, no rub and no gallops GI GI Narrative: Less tender today compared to yesterday Palpation: tender LLQ and RLQ; Negative for guarding, rigid or ascites Extremity no clubbing, cyanosis or edema Skin no rashes or lesions noted Neuro oriented x3, CN's II-XII intact bilaterally and moves all extremities Psych cooperative and affect normal Appearance: well kempt Speech: normal speech Charges/Coding Visit Charges Inpatient E&M: 32860 Subs Hosp L3
--- NOTE | 2020-08-15 07:19 | PCM.PN.SRG ---
Subjective Subjective Is feeling better today with no nausea or vomiting Objective Data Objective Data Vital Signs: Vital Signs Temp Pulse Resp BP Pulse Ox 98.1 F 82 17 150/74 H 93 08/15/20 04:00 08/15/20 07:00 08/15/20 07:00 08/15/20 07:00 08/15/20 07:05 Oxygen Flow Rate (L/min) 2 Oxygen Delivery Method Nasal Cannula Weight: 207 lb 3.752 oz Body Mass Index (BMI) 35.9 Intake & Output: Intake and Output for Last 24 Hours 08/13/20 08/14/20 08/15/20 23:59 23:59 23:59 Intake Total 1246.67 / 1246.67 3864.5 / 3864.5 1111.75 / 1111.75 Balance 1246.67 / 1246.67 3864.5 / 3864.5 1111.75 / 1111.75 Lab / Micro Data Result Diagrams: 08/15/20 04:05 08/15/20 04:05 Labs: Laboratory Results - last 24 hr 08/14/20 08/15/20 08/15/20 11:05 04:05 04:05 WBC 9.5 RBC 4.02 L Hgb 10.8 L Hct 36.1 L MCV 89.8 MCH 26.9 L MCHC 29.9 L RDW Std Deviation 67.7 H RDW Coeff of Roselia 21.1 H Plt Count 285 MPV 10.7 Immature Gran % (Auto) 0.400 Neut % (Auto) 72.5 H Lymph % (Auto) 18.3 L [place] % (Auto) 6.2 Eos % (Auto) 2.0 Baso % (Auto) 0.6 Absolute Neuts (auto) 6.9 Absolute Lymphs (auto) 1.74 Nucleated RBC % 0 Differential Comment SCANNED Anisocytosis 1+ Microcytosis RARE Macrocytosis RARE Sodium 144 Potassium 4.1 Chloride 121 H Carbon Dioxide 20.0 L Anion Gap 3 L BUN 25 H Creatinine 1.02 Estim Creat Clear Calc 41.85 Est GFR (MDRD) Af Amer 69 Est GFR (MDRD) Non-Af 57 L BUN/Creatinine Ratio 24.5 H Glucose 77 Lactic Acid 1.2 Calcium 7.4 L Total Bilirubin 0.30 AST 21 ALT 20 Alkaline Phosphatase 106 Troponin I High Sens 149.7 H* Total Protein 5.4 L Albumin 2.2 L Globulin 3.2 Albumin/Globulin Ratio 0.7 L Micro: Microbiology 08/14/20 00:02 Mucosa - Nose SARS-CoV-2 Antigen (Rapid) - Final Radiography Diagnostic Testing: Radiology Impression Echocardiogram 08/14/20 01:57 Interpretation Summary The study was technically difficult. Contrast injection was performed. Left ventricular systolic function is normal. The estimated ejection fraction is 70 %. Trivial mitral valve insufficiency. Trivial tricuspid valve insufficiency. Mild focal aortic valve calcification. Epicardial fat. Unable to estimate RV systolic pressure/pulmonary artery pressure due to technically difficult study. Diastolic function is indeterminate. Ordering Physician: Ashko Bradshaw Referring Physician: Toño Rey Performed By: Chivo Ruth RCS Abdomen CT 08/14/20 12:00 IMPRESSION: 1. Thickening of the transverse, descending and sigmoid colon wall indicative of colitis. 2. Diverticulosis coli. 3. Cholelithiasis. 4. Hiatal hernia. Individualized dose optimization techniques were used for this CT. at 1132 Reported and signed by: Lester Florez MD Electronically Signed: Lester Florez MD at 11:31 EDT Tel , Service support , Rhythm Strip Rhythm Strip: Sinus Rhythm Rate: 93 Ectopy: None Physical Exam Const oriented x3 and no apparent distress Resp normal respiratory effort Cardio regular rate and regular rhythm GI soft to palpation and non-tender Assessment & Plan Assessment/Plan (1) Colitis: PLAN: Patient had colitis of the descending and transverse colon. Her white count has normalized. Her pain is improved and I will start her on a clear diet. She is being moved out of the ICU today. Jj Gallardo MD Pager: [facility] [address] [place] [address], [address] [place] [address] Office:
--- NOTE | 2020-08-15 09:55 | CASEMGMT ---
ROXI FRITZ NOTE: Pt screened with [facility] Palliative Care Screening Tool for strata 3, pt did not meet criteria. Ellis MARINELLIN RN CM
[2020-08-15] MEDS: Heparin Injection (Vial) 5,000 UNIT/ML VIAL 5000 UNIT SC ×2 (09:57→21:52)
--- NOTE | 2020-08-15 12:12 | PN.HOSP_ITS ---
Subjective Subjective Patient states she is feeling better today. Abdominal pain has significantly improved. No more nausea or vomiting. Objective Data Objective Data Vital Signs: Vital Signs Temp Pulse Resp BP Pulse Ox 97.6 F L 86 17 146/77 H 92 08/15/20 09:59 08/15/20 09:59 08/15/20 09:59 08/15/20 09:59 08/15/20 10:06 Oxygen Flow Rate (L/min) 1 Oxygen Delivery Method Nasal Cannula Weight: 94 kg Body Mass Index (BMI) 35.9 Intake & Output: Intake and Output for Last 24 Hours 08/13/20 08/14/20 08/15/20 23:59 23:59 23:59 Intake Total 1246.67 / 1246.67 3864.5 / 3864.5 Balance 1246.67 / 1246.67 3864.5 / 3864.5 Lab / Micro Data Result Diagrams: 08/15/20 04:05 08/15/20 04:05 Labs: Laboratory Results - last 24 hr 08/15/20 08/15/20 04:05 04:05 WBC 9.5 RBC 4.02 L Hgb 10.8 L Hct 36.1 L MCV 89.8 MCH 26.9 L MCHC 29.9 L RDW Std Deviation 67.7 H RDW Coeff of Roselia 21.1 H Plt Count 285 MPV 10.7 Immature Gran % (Auto) 0.400 Neut % (Auto) 72.5 H Lymph % (Auto) 18.3 L [place] % (Auto) 6.2 Eos % (Auto) 2.0 Baso % (Auto) 0.6 Absolute Neuts (auto) 6.9 Absolute Lymphs (auto) 1.74 Nucleated RBC % 0 Differential Comment SCANNED Anisocytosis 1+ Microcytosis RARE Macrocytosis RARE Sodium 144 Potassium 4.1 Chloride 121 H Carbon Dioxide 20.0 L Anion Gap 3 L BUN 25 H Creatinine 1.02 Estim Creat Clear Calc 41.85 Est GFR (MDRD) Af Amer 69 Est GFR (MDRD) Non-Af 57 L BUN/Creatinine Ratio 24.5 H Glucose 77 Calcium 7.4 L Total Bilirubin 0.30 AST 21 ALT 20 Alkaline Phosphatase 106 Troponin I High Sens 149.7 H* Total Protein 5.4 L Albumin 2.2 L Globulin 3.2 Albumin/Globulin Ratio 0.7 L Micro: Microbiology 08/14/20 00:02 Mucosa - Nose SARS-CoV-2 Antigen (Rapid) - Final 08/13/20 21:40 Urine Catheter - Catheter Urine Culture - Preliminary Gram negative cristina Rhythm Strip Rhythm Strip: Sinus Rhythm Rate: 93 Ectopy: None Physical Exam Const alert, oriented x3, no apparent distress and well nourished Constitutional Narrative: Obese older white female, sitting in bed, appears comfortable, nontoxic General Appearance: cooperative Exam Limitations: no limitations HEENT normocephalic, head/scalp atraumatic, moist oral mucous membranes and oropharynx normal Head and Scalp: normocephalic Eyes PERRL, EOMs intact bilaterally and conjunctivae normal Eyes Narrative: No scleral icterus, moist mucous membranes Resp normal respiratory effort, no retractions, no use of accessory muscles and clear to auscultation bilaterally Auscultation: Negative for crackles, rales, rhonchi or wheezes Cardio regular rate, regular rhythm, S1 normal heart sound, S2 normal heart sound, no murmurs, no rub, no gallops, no clicks and no JVD GI normal to inspection, nondistended, normoactive bowel sounds, soft to palpation and non-distended GI Narrative: Minimal tenderness bilateral lower quadrants-much improved, no guarding or rebound Auscultation: hyperactive bowel sounds Palpation: tender; Negative for guarding or hernia Extremity normal to inspection and no clubbing, cyanosis or edema Neuro oriented x3, CN's II-XII intact bilaterally and moves all extremities Neuro Narrative: No clonus Sensorium / Orientation: awake, alert, oriented to person, oriented to place and oriented to time Speech: speech normal Psych affect normal Psych Narrative: Very pleasant Assessment & Plan Assessment/Plan (1) Colitis: (2) Leucocytosis: QUALIFIERS: Leukocytosis type: unspecified Qualified Code(s): D72.829 - Elevated white blood cell count, unspecified (3) Hypokalemia: (4) Renal insufficiency: (5) Non-ST elevation (NSTEMI) myocardial infarction: (6) Septic shock: (7) Lactic acidosis: (8) Acute kidney injury: PLAN: Septic shock secondary to colitis/UTI -Lactate was 10 on admission -Continue antibiotics--> Zosyn -White count has normalized -General surgery is following but no acute surgical intervention at this time -Suspect ischemic -Continue Zosyn -Clear liquid diet now and we can advance as patient tolerates -Blood cultures pending -Urine culture shows gram-negative rods -Covid negative -Clinically much improved -Transfer from ICU to medical floor with possible discharge tomorrow if patient stable and does well with therapy Ischemic colitis -See above Leukocytosis -Resolved NSTEMI -Suspect demand ischemia with supply/demand mismatch and NSTEMI type II -Cardiology is following -Echo performed and shows preserved LV function and wall motion -Per cardiology note patient may need further cardiology work-up including diagnostic LHC when she is more clinically stable -We will initiate more medical therapy once patient is able to take p.o. medications -Rectal aspirin given today Gram-negative cristina UTI -Continue Zosyn -Await identification and sensitivities DANIELLE on CKD stage IIIa -DANIELLE resolved -Serum creatinine was 1.89 at admission -Appears baseline serum creatinine is 1.0-1.3 -Creatinine has now normalized -BMP in a.m. History of gout -Restart allopurinol Hypertension -Restart home medications today Depression -Restart Effexor DVT prophylaxis -Continue subcu heparin CODE STATUS -Full code
[2020-08-15] MEDS: Lisinopril 10 MG Tablet PO (14:15)
[2020-08-15] MEDS: Ferrous Sulfate 325 MG Tablet PO (17:42)
--- NOTE | 2020-08-15 20:05 | PN.CARD_ITS ---
Subjective Subjective The patient is now out of the ICU. She states she is feeling better with respect to her abdominal discomfort. She has no new complaints of chest discomfort or difficulty breathing. Objective Data Vital Signs: Vital Signs Temp Pulse Resp BP Pulse Ox 98.7 F 80 18 170/89 H 100 08/15/20 15:07 08/15/20 16:20 08/15/20 15:07 08/15/20 15:10 08/15/20 15:07 Oxygen Flow Rate (L/min) 1 Oxygen Delivery Method Room Air Weight: 207 lb 3.752 oz Body Mass Index (BMI) 35.9 Intake & Output: Intake and Output for Last 24 Hours 08/13/20 08/14/20 08/15/20 23:59 23:59 23:59 Intake Total 1246.67 / 1246.67 3864.5 / 3864.5 2254.25 / 2254.25 Balance 1246.67 / 1246.67 3864.5 / 3864.5 2254.25 / 2254.25 Lab / Micro Data Result Diagrams: 08/15/20 04:05 08/15/20 04:05 Labs: Laboratory Results - last 24 hr 08/15/20 08/15/20 04:05 04:05 WBC 9.5 RBC 4.02 L Hgb 10.8 L Hct 36.1 L MCV 89.8 MCH 26.9 L MCHC 29.9 L RDW Std Deviation 67.7 H RDW Coeff of Roselia 21.1 H Plt Count 285 MPV 10.7 Immature Gran % (Auto) 0.400 Neut % (Auto) 72.5 H Lymph % (Auto) 18.3 L [place] % (Auto) 6.2 Eos % (Auto) 2.0 Baso % (Auto) 0.6 Absolute Neuts (auto) 6.9 Absolute Lymphs (auto) 1.74 Nucleated RBC % 0 Differential Comment SCANNED Anisocytosis 1+ Microcytosis RARE Macrocytosis RARE Sodium 144 Potassium 4.1 Chloride 121 H Carbon Dioxide 20.0 L Anion Gap 3 L BUN 25 H Creatinine 1.02 Estim Creat Clear Calc 41.85 Est GFR (MDRD) Af Amer 69 Est GFR (MDRD) Non-Af 57 L BUN/Creatinine Ratio 24.5 H Glucose 77 Calcium 7.4 L Total Bilirubin 0.30 AST 21 ALT 20 Alkaline Phosphatase 106 Troponin I High Sens 149.7 H* Total Protein 5.4 L Albumin 2.2 L Globulin 3.2 Albumin/Globulin Ratio 0.7 L Micro: Microbiology 08/14/20 00:02 Mucosa - Nose SARS-CoV-2 Antigen (Rapid) - Final 08/13/20 21:40 Urine Catheter - Catheter Urine Culture - Preliminary Gram negative cristina Rhythm Strip Rhythm Strip: Sinus Rhythm Rate: 93 Ectopy: None Cardiology Labs/Tests 08/15/20 04:05: Sodium 144, Potassium 4.1, Chloride 121 H, Carbon Dioxide 20.0 L , Anion Gap 3 L, BUN 25 H, Creatinine 1.02, Est GFR (MDRD) Af Amer 69, Est GFR (MDRD) Non-Af 57 L, BUN/Creatinine Ratio 24.5 H, Glucose 77, Calcium 7.4 L, Total Bilirubin 0.30 08/15/20 04:05: WBC 9.5, RBC 4.02 L, Hgb 10.8 L, Hct 36.1 L, MCV 89.8, MCH 26.9 L, MCHC 29.9 L, Plt Count 285, MPV 10.7, Immature Gran % (Auto) 0.400, Neut % (Auto) 72.5 H, Lymph % (Auto) 18.3 L, [place] % (Auto) 6.2, Eos % (Auto) 2.0, Baso % (Auto) 0.6, Absolute Neuts (auto) 6.9, Nucleated RBC % 0 Rhythm: Sinus rhythm Physical Exam Const alert, oriented x3 and no apparent distress Orientation / Consciousness: awake HEENT normocephalic, head/scalp atraumatic and hearing grossly normal bilaterally Eyes PERRL, EOMs intact bilaterally, conjunctivae normal and no scleral icterus Neck full ROM, supple, no JVD and no carotid bruits Chest inspection of chest normal and palpation of chest normal Resp normal respiratory effort and clear to auscultation bilaterally Cardio regular rate, regular rhythm, S1 normal heart sound and S2 normal heart sound GI GI Narrative: Diminished bowel sounds; positive tenderness to palpation-less prominent than previous evaluation Extremity no pedal edema Skin Skin Narrative: Rash: Right forearm Neuro oriented x3, CN's II-XII intact bilaterally and moves all extremities Psych mental status grossly normal Assessment & Plan Assessment/Plan (1) Non-ST elevation (NSTEMI) myocardial infarction: PLAN: The patient has abnormal troponin I levels compatible with a non-ST segment elevation MO. At the present time there is concern that this is a type II event secondary to supply demand mismatch secondary to the patient's ongoing concerns of what appears to be an ischemic mediated colitis and a possible UTI and a possible sepsis syndrome as noted by a previously elevated lactic acid levels. Her troponin I levels have remained elevated. They can be followed. Her ECG is as noted with the previous ST segment abnormality being less prominent at this time. Her transthoracic echocardiogram is as noted and demonstrates overall preserved left ventricular wall motion and systolic function. At the present time the patient is being monitored. When she is able to be reasonable to advance medical therapy which could include agents such as aspirin, beta-blockers, afterload reducing agents, lipid-lowering agents, etc. She may eventually need further evaluation with diagnostic cardiac catheterization. However, as previously noted, it would be reasonable to hold on this procedure, barring an unforeseen urgent/emergent event, to allow her noncardiac issues with concerns of an ischemic mediated colitis, UTI, and a sepsis syndrome to improve. (2) Renal insufficiency: PLAN: The patient does have renal insufficiency. This may be secondary to volume loss based upon her marked nausea/emesis. However she does have an element of baseline chronic renal insufficiency. Thus her renal function will need to be followed as her volume status stabilizes, etc. (3) Hypokalemia: PLAN: The patient was noted to be hypokalemic which may be a result of her emesis. This could contribute to electrocardiographic changes as well as those related to the possibility of LVH and/or myocardial ischemia. She has received potassium supplementation. Her electrolytes will be followed. (4) Lactic acidosis: PLAN: The patient was noted to have elevated lactic acid levels. The etiology appears concerning from an underlying ischemic mediated colitis with her UTI and a sepsis syndrome. As she has been treated for her underlying abdominal related issues her lactic acid level has been reported as improved. (5) Acute UTI: PLAN: The patient was diagnosed with a UTI. (6) Leucocytosis: QUALIFIERS: Leukocytosis type: unspecified Qualified Code(s): D72.829 - Elevated white blood cell count, unspecified PLAN: The patient does have leukocytosis. This may be an acute reaction to cardiac or noncardiac issues especially with respect to her concerns of her acute abdominal process. However it may be related to her recent initiation of corticosteroid therapy for what she refers to as poison rich on her right forearm. As she has been treated for her abdominal related issues her WBC count has improved. (7) Hypertension: QUALIFIERS: Hypertension type: essential hypertension Qualified Code(s): I10 - Essential (primary) hypertension PLAN: The patient has a history of hypertension. Her blood pressure will need to be monitored and cared for as best as possible. (8) Anemia: QUALIFIERS: Anemia type: unspecified type Qualified Code(s): D64.9 - Anemia, unspecified PLAN: The patient has a history of anemia. He states since being on iron supplement her hemoglobin has improved. She was to go through endoscopy procedures as part of her anemia evaluation. This appears to be placed on hold at the moment based upon her acute findings. Her anemia, depending upon etiology, significance, etc., may or may not play a role in the future with respect to ongoing cardiac evaluation and/or therapy. Addt'l Comments This note was generated using a voice recognition system and there may be incorrect words, spelling or punctuation that were not noted when reviewing the office note prior to saving.
[2020-08-15] MEDS: Venlafaxine XR 150 MG Capsule PO (21:53)
[2020-08-15] MEDS: Verapamil SR 240 MG Tablet PO (21:58)
[2020-08-16 02:02] VITALS: BP 160/74; PULSE 74; RESP 18; TEMP 36.6; O2SAT 96
[2020-08-16 06:59] LABS: Absolute Lymphocyte Count 1.91 X10^3/uL (0.83-4.51); Absolute Neutrophil Count 5.5 X10^3/uL (2.0-7.7); Basophil# 0.07 X10^3/uL; Basophil% 0.8 % (0-1); Eosinophil# 0.67 X10^3/uL; Eosinophils% 7.6 % (0-5); Hematocrit 36.7 % (37-47); Hemoglobin 11.1 g/dL (12.0-15.0); Lymphocyte # 1.91 X10^3/ul (0.83-4.51); Lymphocyte % 21.8 % (19-41); Mean Corp Hgb Conc 30.2 g/dL (32-36); Mean Corpuscular Hgb 26.9 pg (27.0-32.0); Mean Corpuscular Volume 88.9 fL (81-99); Mean Platelet Vol. 10.7 fl (6.2-12.0); Monocyte# 0.57 X10^3/uL; Monocyte% 6.5 % (0-10); NRBC Flagged by Analyzer 0 % (0-5); Neutrophil # 5.51 X10^3/uL (2.7-7.7); POSITIVE MORPHOLOGY YES; Platelet Count 282 K/mm3 (150-450); RBC Distribution Width CV 20.2 % (11.6-14.6); RBC Distribution Width SD 64.8 fl (35.1-43.9); Red Blood Count 4.13 M/mm3 (4.2-5.4); White Blood Count 8.8 K/mm3 (4.4-11.0)
[2020-08-16 07:01] LABS: Differential Indicated SCAN CRITERIA MET
[2020-08-16 07:18] LABS: Differential Comment SCANNED
--- NOTE | 2020-08-16 07:45 | PCM.PN.INT ---
Assessment & Plan Assessment/Plan (1) Leucocytosis: QUALIFIERS: Leukocytosis type: unspecified Qualified Code(s): D72.829 - Elevated white blood cell count, unspecified (2) Renal insufficiency: (3) Acute kidney injury: (4) Hypertension: QUALIFIERS: Hypertension type: essential hypertension Qualified Code(s): I10 - Essential (primary) hypertension (5) Depression: QUALIFIERS: Depression Type: unspecified Qualified Code(s): F32.9 - Major depressive disorder, single episode, unspecified PLAN: RECOMMENDATIONS: 1. P.o. intake and antibiotics per surgery 2. Increase activity as tolerated 3. Encourage incentive spirometer 4. Hemodynamically stable on room air. Will sign off from a critical care perspective IMPRESSIONS: 1. Septic shock by lactate criteria secondary to colitis Patient with significant colitis on repeat imaging of the abdomen. Patient has been on Zosyn therapy and responding appropriately. Leukocytosis has normalized. Patient continues to improve from a clinical standpoint with no pain today. Defer to surgery on p.o. status. Patient is hemodynamically stable on room air. Will sign off from a critical care perspective. 2. Elevated troponin Unclear etiology. Clinical suspicion for supply demand mismatch. Cardiology is following. Patient is on telemetry. Obtain EKG if necessary. 3. Acute kidney injury Resolved. Baseline creatinine appears to be approximately 1. This may be prerenal secondary to bowel prep. Patient did not receive a significant amount of bowel prep. Elevation occurred prior to any contrast, so contrast-induced nephropathy would be unlikely. 4. Obesity/advanced age/hiatal hernia/hypertension Complicates care, management, recovery and prognosis. Recommend elevation of head of bed. Patient may benefit from initiation of a PPI. Could restart lisinopril from my perspective Subjective Subjective Patient transferred from the intensive care unit yesterday. Patient felt subjectively improved this morning compared to previous. Patient is not reporting any chest pain or abdominal pain no nausea or vomiting has been reported. Objective Data Objective Data Vital Signs: Vital Signs Temp Pulse Resp BP Pulse Ox 36.6 C 74 18 160/74 H 96 08/16/20 02:02 08/16/20 02:02 08/16/20 02:02 08/16/20 02:02 08/16/20 02:02 Oxygen Flow Rate (L/min) 1 Oxygen Delivery Method Room Air Weight: 93.7 kg Body Mass Index (BMI) 35.9 Intake & Output: Intake and Output for Last 24 Hours 08/14/20 08/15/20 08/16/20 23:59 23:59 23:59 Intake Total 3864.5 / 3864.5 2254.25 / 2454.25 650 / 650 Balance 3864.5 / 3864.5 2254.25 / 2454.25 650 / 650 Lab / Micro Data Result Diagrams: 08/16/20 06:53 08/15/20 04:05 Labs: Laboratory Results - last 24 hr 08/16/20 06:53 WBC 8.8 RBC 4.13 L Hgb 11.1 L Hct 36.7 L MCV 88.9 MCH 26.9 L MCHC 30.2 L RDW Std Deviation 64.8 H RDW Coeff of Roselia 20.2 H Plt Count 282 MPV 10.7 Immature Gran % (Auto) 0.300 Neut % (Auto) 63.0 Lymph % (Auto) 21.8 [place] % (Auto) 6.5 Eos % (Auto) 7.6 H Baso % (Auto) 0.8 Absolute Neuts (auto) 5.5 Absolute Lymphs (auto) 1.91 Nucleated RBC % 0 Differential Comment SCANNED Micro: Microbiology 08/13/20 23:26 Blood Culture (Wb) - Right Wrist Blood Culture - Preliminary No growth in 48 hours. 08/13/20 23:30 Blood Culture (Wb) - Anticubital Left Blood Culture - Preliminary No growth in 48 hours. 08/14/20 00:02 Mucosa - Nose SARS-CoV-2 Antigen (Rapid) - Final 08/13/20 21:40 Urine Catheter - Catheter Urine Culture - Preliminary Gram negative cristina Rhythm Strip Rhythm Strip: Sinus Rhythm Rate: 93 Ectopy: None Physical Exam Const alert, oriented x3 and no apparent distress General Appearance: cooperative and well developed; Negative for ill appearing HEENT normocephalic and head/scalp atraumatic Eyes PERRL, EOMs intact bilaterally and conjunctivae normal Neck full ROM and no lymphadenopathy Lymph Lymphatic: no lymphadenopathy noted Resp normal respiratory effort and no use of accessory muscles Effort and Inspection: able to speak in complete sentences Auscultation: clear to auscultation bilaterally; Negative for rales, rhonchi or wheezes Cardio regular rate, regular rhythm, S1 normal heart sound, S2 normal heart sound, no murmurs, no rub and no gallops GI GI Narrative: No tenderness today. Palpation: Negative for tender, guarding, rigid or ascites Extremity no clubbing, cyanosis or edema Skin no rashes or lesions noted Neuro oriented x3, CN's II-XII intact bilaterally and moves all extremities Psych cooperative and affect normal Appearance: well kempt Speech: normal speech Charges/Coding Visit Charges Inpatient E&M: 21347 Subs Hosp L2
[2020-08-16] MEDS: Calcium Carb/Vitamin D 1 TABLET Tablet PO (07:50)
[2020-08-16] MEDS: Aspirin E.C. 81 MG Tablet PO (07:50)
[2020-08-16] MEDS: Ferrous Sulfate 325 MG Tablet PO (07:50)
[2020-08-16] MEDS: Allopurinol 300 MG Tablet PO (07:50)
[2020-08-16 08:00] VITALS: BP 145/79; PULSE 68; RESP 18; TEMP 37; O2SAT 95
--- NOTE | 2020-08-16 08:36 | PN.SURG_ITS ---
Subjective Subjective Patient denies any abdominal pain Objective Data Objective Data Vital Signs: Vital Signs Temp Pulse Resp BP Pulse Ox 98.6 F 68 18 145/79 H 95 08/16/20 08:00 08/16/20 08:00 08/16/20 08:00 08/16/20 08:00 08/16/20 08:00 Oxygen Flow Rate (L/min) 1 Oxygen Delivery Method Room Air Weight: 206 lb 9.17 oz Body Mass Index (BMI) 35.9 Intake & Output: Intake and Output for Last 24 Hours 08/14/20 08/15/20 08/16/20 23:59 23:59 23:59 Intake Total 3864.5 / 3864.5 2254.25 / 2454.25 650 / 650 Balance 3864.5 / 3864.5 2254.25 / 2454.25 650 / 650 Lab / Micro Data Result Diagrams: 08/16/20 06:53 08/15/20 04:05 Labs: Laboratory Results - last 24 hr 08/16/20 06:53 WBC 8.8 RBC 4.13 L Hgb 11.1 L Hct 36.7 L MCV 88.9 MCH 26.9 L MCHC 30.2 L RDW Std Deviation 64.8 H RDW Coeff of Roselia 20.2 H Plt Count 282 MPV 10.7 Immature Gran % (Auto) 0.300 Neut % (Auto) 63.0 Lymph % (Auto) 21.8 [place] % (Auto) 6.5 Eos % (Auto) 7.6 H Baso % (Auto) 0.8 Absolute Neuts (auto) 5.5 Absolute Lymphs (auto) 1.91 Nucleated RBC % 0 Differential Comment SCANNED Micro: Microbiology 08/13/20 23:26 Blood Culture (Wb) - Right Wrist Blood Culture - Preliminary No growth in 48 hours. 08/13/20 23:30 Blood Culture (Wb) - Anticubital Left Blood Culture - Preliminary No growth in 48 hours. 08/14/20 00:02 Mucosa - Nose SARS-CoV-2 Antigen (Rapid) - Final 08/13/20 21:40 Urine Catheter - Catheter Urine Culture - Preliminary Gram negative cristina Rhythm Strip Rhythm Strip: Sinus Rhythm Rate: 93 Ectopy: None Physical Exam Const alert, oriented x3 and no apparent distress HEENT normocephalic and head/scalp atraumatic Resp normal respiratory effort Cardio regular rate GI soft to palpation and non-tender; Negative for non-distended Palpation: Negative for guarding Extremity no clubbing, cyanosis or edema Neuro CN's II-XII intact bilaterally Psych mental status grossly normal Assessment & Plan Assessment/Plan (1) Colitis: PLAN: Plan to complete 7 days of antibiotics total patient be DC'd on Augmentin. Follow-up with me in the office in 1 to 2 weeks. Khadijah Zelaya M.D. Pager: [phone] [facility] [address] [place] [address], [address] [place] [address] Office: [phone] Charges/Coding Visit Charges Inpatient E&M: 59815 Subs Hosp L2
[2020-08-16 09:35] VITALS: BP 145/79; PULSE 68
[2020-08-16] MEDS: Heparin Injection (Vial) 5,000 UNIT/ML VIAL 5000 UNIT SC (09:35)
[2020-08-16] MEDS: Lisinopril 10 MG Tablet PO (09:35)
[2020-08-16] MEDS: Metoprolol Tartrate 50 MG Tablet PO (09:35)
--- NOTE | 2020-08-16 10:29 | DS.PCM_ITS ---
Providers Date of Admission: 08/13/20 Primary Care Physician: Dr. 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 / Pulmonary Medicine Routine Consulting Provider: [facility] Reason for Consult: septic shock EMERGENT Consult: No Notified: Yes Date Notified: 08/14/20 Time Notified: 05:52 Method of Notification: Verbal Method of Consult:: In-Person Reason For Visit: SEPTIC SHOCK Diagnosis Discharge Diagnosis (1) Colitis: Status: Acute Code(s): K52.9 - Noninfective gastroenteritis and colitis, unspecified Medications at Discharge Home Medications venlafaxine 150 mg PO QHS 05/07/18 allopurinol 300 mg tablet 300 mg PO DAILY 06/01/18 ferrous sulfate 325 mg (65 mg iron) tablet 650 mg PO DAILY tab 06/01/18 calcium citrate 200 mg calcium-vitamin D3 3.125 mcg (125 unit) tablet 1 tab PO DAILY 07/15/20 ipratropium bromide 17 mcg/actuation HFA aerosol inhaler 1 inh INHALATION DAILY PRN PRN 07/15/20 lisinopril 10 mg tablet 10 mg PO DAILY 07/15/20 aspirin 81 mg PO BREAKFAST #0 tab 08/16/20 atorvastatin 40 mg PO QHS #30 tab 08/16/20 levofloxacin 750 mg PO Q24H #5 tab 08/16/20 metoprolol tartrate 50 mg PO BID #60 tab 08/16/20 Hospital Course Operations None Procedures - (CT abdomen and pelvis x2) Summary of Care Provided Minutes Spent on Discharge: 40 Hospital Course: Mrs. Corona is a 70-year-old female who presented to the emergency department at [facility] on 08/13/2020 with a chief complaint of abdominal pain and nausea and vomiting. The patient reported she was about mcc through her prep for colonoscopy on 623 when she developed acute onset abdominal pain, nausea, vomiting, and diarrhea. Her symptoms developed approximately 1 hour prior to arrival to the emergency department. On arrival she had a white count of 24.5, her venous pH was 7.2, she had a potassium of 2.8, serum creatinine of 1.89, and a lactic acidosis with a lactic acid level of 10.6. She was given IV fluids at 30 cc/kg and Zosyn in the emergency department. A CT of the abdomen pelvis was performed and showed only a hiatal hernia, diverticulosis, and cholelithiasis. She was seen by Dr. Paulina ordonez in the emergency department who did not feel there were any acute surgical issues but would continue to follow her during her hospitalization. She was admitted to the ICU. She had a quickly resolving lactate and improved abdominal pain. A repeat CT of her abdomen was done on 08/14/2020 and showed thickening in the transverse, descending, and sigmoid colon wall that was indicative of colitis, diverticulosis coli, cholelithiasis, and hiatal hernia. By this time her nausea and vomiting had resolved. She was also found to have a mildly elevated high-sensitivity troponin that did trend up. She was evaluated by cardiology and an echocardiogram was performed. Her echo showed normal left ventricular systolic function with an EF of 60%, stage II diastolic dysfunction, and mild tricuspid valve insufficiency. She was placed on a beta-raghu, statin, aspirin and is already taking lisinopril. Her verapamil was discontinued when she was placed on metoprolol. Of note she has an allergy to propranolol which states that she has bradycardia but I am unable to ascertain how low her heart rate was in when this occurred. We will retry metoprolol with her and have her reevaluated in her primary care office in 1 week. Cardiology would also like to follow-up with her as an outpatient and either perform an outpatient stress test or cardiac catheterization. She had no chest pain throughout her admission. Her kidney function has normalized by discharge. She was tolerating a p.o. diet without difficulty and she was discharged home in stable condition. She is to follow-up with cardiology in 2 to 4 weeks, with Dr. Abarca for her colonoscopy as directed, and her primary care physician within 1 week. It was felt the most likely etiology of her colitis was ischemic. Surgery recommended discharge on antibiotics for total of 7 days coverage. Levaquin was prescribed for 5 more days. Weight / BMI Weight Weight: 93.7 kg Body Mass Index (BMI) 35.9 ABG / Lab / Microbiology Data Result Diagrams: 08/16/20 06:53 08/15/20 04:05 Laboratory: Laboratory Results - last 24 hr 08/16/20 06:53 WBC 8.8 RBC 4.13 L Hgb 11.1 L Hct 36.7 L MCV 88.9 MCH 26.9 L MCHC 30.2 L RDW Std Deviation 64.8 H RDW Coeff of Roselia 20.2 H Plt Count 282 MPV 10.7 Immature Gran % (Auto) 0.300 Neut % (Auto) 63.0 Lymph % (Auto) 21.8 Bledsoe % (Auto) 6.5 Eos % (Auto) 7.6 H Baso % (Auto) 0.8 Absolute Neuts (auto) 5.5 Absolute Lymphs (auto) 1.91 Nucleated RBC % 0 Differential Comment SCANNED Microbiology: Microbiology 08/13/20 21:40 Urine Culture - Final Urine Catheter - Catheter Proteus mirabilis 08/13/20 23:26 Blood Culture - Preliminary Blood Culture (Wb) - Right Wrist No growth in 48 hours. 08/13/20 23:30 Blood Culture - Preliminary Blood Culture (Wb) - Anticubital Left No growth in 48 hours. 08/14/20 00:02 SARS-CoV-2 Antigen (Rapid) - Final Mucosa - Nose Microbiology 08/13/20 21:40 Urine Catheter - Catheter Urine Culture - Final Proteus mirabilis 08/13/20 23:26 Blood Culture (Wb) - Right Wrist Blood Culture - Preliminary No growth in 48 hours. 08/13/20 23:30 Blood Culture (Wb) - Anticubital Left Blood Culture - Preliminary No growth in 48 hours. 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 Discharge Orders/Prescriptions Prescriptions: New atorvastatin 40 mg Tablet 40 mg PO QHS Qty: 30 RF: 1 aspirin 81 mg Tablet,Delayed Release (Dr/Ec) 81 mg PO BREAKFAST Qty: 0 RF: 0 metoprolol tartrate 50 mg Tablet 50 mg PO BID Qty: 60 RF: 1 levofloxacin 750 mg tablet 750 mg PO Q24H Qty: 5 RF: 0 Continued allopurinol 300 mg tablet 300 mg PO DAILY RF: 0 ferrous sulfate 325 mg (65 mg iron) tablet 650 mg PO DAILY RF: 0 lisinopril 10 mg tablet 10 mg PO DAILY RF: 0 calcium citrate-vitamin D3 200 mg-3.125 mcg (125 unit) tablet 1 tab PO DAILY RF: 0 ipratropium bromide 17 mcg/actuation HFA aerosol inhaler 1 inh inhalation DAILY PRN PRN (Reason: Congestion) RF: 0 venlafaxine 150 MG capsule,extended release 24hr 150 mg PO QHS RF: 0 Discontinued verapamil 300 MG capsule, [address] 300 mg PO QHS RF: 0 Referrals / Follow Up: Toño Rey MD [Primary Care Provider] - Within 1 Week Ashok Bradshaw MD [STAFF PHYSICIAN] - Within 2 Weeks Khadijah Zelaya MD [STAFF PHYSICIAN] - See Referral Note (As directed) Disposition Disposition (needs filled in before D/C Order can be placed): Home, Self Care Charges/Coding Visit Charges Inpatient E&M: 73719 Disch Hosp
--- NOTE | 2020-08-16 10:44 | DCINST_ITS ---
Discharge Instructions Diet Discharge Diet: Low fat / Low cholesterol Follow Up Care Test Results: Test results from this visit will be discussed in further detail at your follow-up appointment, if applicable. 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 Discharge Orders/Prescriptions Prescriptions: New atorvastatin 40 mg Tablet 40 mg PO QHS Qty: 30 RF: 1 aspirin 81 mg Tablet,Delayed Release (Dr/Ec) 81 mg PO BREAKFAST Qty: 0 RF: 0 metoprolol tartrate 50 mg Tablet 50 mg PO BID Qty: 60 RF: 1 levofloxacin 750 mg tablet 750 mg PO Q24H Qty: 5 RF: 0 Continued allopurinol 300 mg tablet 300 mg PO DAILY RF: 0 ferrous sulfate 325 mg (65 mg iron) tablet 650 mg PO DAILY RF: 0 lisinopril 10 mg tablet 10 mg PO DAILY RF: 0 calcium citrate-vitamin D3 200 mg-3.125 mcg (125 unit) tablet 1 tab PO DAILY RF: 0 ipratropium bromide 17 mcg/actuation HFA aerosol inhaler 1 inh inhalation DAILY PRN PRN (Reason: Congestion) RF: 0 venlafaxine 150 MG capsule,extended release 24hr 150 mg PO QHS RF: 0 Discontinued verapamil 300 MG capsule, [address] 300 mg PO QHS RF: 0 Referrals / Follow Up: Toño Rey MD [Primary Care Provider] - Within 1 Week Ashok Bradshaw MD [STAFF PHYSICIAN] - Within 2 Weeks Khadijah Zelaya MD [STAFF PHYSICIAN] - See Referral Note (As directed) Disposition Disposition (needs filled in before D/C Order can be placed): Home, Self Care
[2020-08-16 12:22] VITALS: BP 153/66; PULSE 64; RESP 19; TEMP 37.2; O2SAT 98
--- NOTE | 2020-08-19 16:10 | CASEMGMT ---
ROXI FRITZ Discharge Follow Up Phone Call: LACE: 11 Strata: 3 Call Date: 08.19.20 Discharge Date: 08.16.20 Time of Call:1604 Duration:<1 min Admitting Dx:colitis ROXI FRITZ attempted to complete follow up phone call after recent hospitalization. No answer and unidentified answering machine. No message left.
== END 2020-08-16 13:30 | disposition home or self-care (01) | DRG 871 ==
LOC: ED 22:41 → ICU 23:58 → MS3 08-15 15:05
PROVIDERS: Internal Medicine Cardiovascular Disease; Surgery; Emergency Provider Emergency Medicine; PCP Family Medicine; Visit Provider Internal Medicine
DX: A41.9 Sepsis, unspecified organism (principal); R65.21 Severe sepsis with septic shock; K55.9 Vascular disorder of intestine, unspecified; N39.0 Urinary tract infection, site not specified; E87.2 Acidosis; N17.9 Acute kidney failure, unspecified; I12.9 Hypertensive chronic kidney disease with stage 1 through stage 4 chronic kidney disease, or unspecified chronic kidney disease; N18.31 Chronic kidney disease, stage 3a; L23.7 Allergic contact dermatitis due to plants, except food; E87.6 Hypokalemia; D50.9 Iron deficiency anemia, unspecified; Z20.822 Contact with and (suspected) exposure to COVID-19; M19.90 Unspecified osteoarthritis, unspecified site; M10.9 Gout, unspecified; K21.9 Gastro-esophageal reflux disease without esophagitis; F32.9 Major depressive disorder, single episode, unspecified; F41.9 Anxiety disorder, unspecified; E66.9 Obesity, unspecified; Z79.82 Long term (current) use of aspirin; Z79.899 Other long term (current) drug therapy; Z68.35 Body mass index [BMI] 35.0-35.9, adult
CPT/HCPCS: 36415; 71045; 74176; 74177; 76705; 80053; 80061; 81001; 82009; 82803; 83605; 83690; 83735; 84484; 85025; 85610; 87040; 87077; 87086; 87088; 87186; 87426; 93005; 93306; 97166; 97802; 99285; J7030; J7040; J7050; P9612; Q9957; Q9967; A4216; C8929; J2405; J3490

== ENCOUNTER → 2020-09-25 11:35 | Outpatient (CLI) | payer MEDICARE, OTHER, SELFPAY ==
[2020-09-03 15:24] VITALS: BMI 34.2
[2020-09-25 15:45] LABS: Absolute Lymphocyte Count 1.99 X10^3/uL (0.83-4.51); Absolute Neutrophil Count 6.5 X10^3/uL (2.0-7.7); Basophil# 0.07 X10^3/uL; Basophil% 0.7 % (0-1); Eosinophil# 0.31 X10^3/uL; Eosinophils% 3.2 % (0-5); Hematocrit 47.6 % (37-47); Hemoglobin 14.6 g/dL (12.0-15.0); Lymphocyte # 1.99 X10^3/ul (0.83-4.51); Lymphocyte % 20.8 % (19-41); Mean Corp Hgb Conc 30.7 g/dL (32-36); Mean Corpuscular Hgb 27.7 pg (27.0-32.0); Mean Corpuscular Volume 90.2 fL (81-99); Mean Platelet Vol. 11.9 fl (6.2-12.0); Monocyte# 0.69 X10^3/uL; Monocyte% 7.2 % (0-10); NRBC Flagged by Analyzer 0 % (0-5); Neutrophil # 6.47 X10^3/uL (2.7-7.7); Neutrophil % 67.8 % (47-70); Platelet Count 345 K/mm3 (150-450); RBC Distribution Width CV 15.1 % (11.6-14.6); RBC Distribution Width SD 48.9 fl (35.1-43.9); RET-HE 30.1 pg (30-35); Red Blood Count 5.28 M/mm3 (4.2-5.4); Reticulocyte Count 1.41 % (0.5-1.5); White Blood Count 9.6 K/mm3 (4.4-11.0)
[2020-09-25 15:55] LABS: International Normalized Ratio 1.2; Prothrombin Time (Protime)PT. 14.2 SECONDS (11.7-14.9)
[2020-09-25 15:56] LABS: Partial Thromboplast Time 40.6 Seconds (24.1-36.2)
[2020-09-25 16:14] LABS: Ferritin 68 ng/mL (8-252); Iron 44 ug/dL (50-170); Iron Binding Capacity,Total 478 ug/dL (250-450); PERCENT IRON SATURATION 9.2 % (15.0-55.0)
[2020-09-25 16:26] LABS: Anion Gap 11 (5-15); BUN 33 mg/dL (7-18); Calcium,Total 9.6 mg/dL (8.5-10.1); Chloride 99 mmol/L (98-107); Creatinine, Serum 1.65 mg/dL (0.55-1.02); EST Glomerular Filtration Rate 33 mL/min (>60); Est Glom Filt Rate - Afr Amer 39 mL/min (>60); Glucose 103 mg/dL (74-106); Potassium 4.1 mmol/L (3.5-5.1); Sodium Level 132 mmol/L (136-145)
== END ==
PROVIDERS: Physician Assistant Medical; PCP Family Medicine; Referring Provider Family Medicine; Visit Provider Family Medicine
DX: D50.9 Iron deficiency anemia, unspecified (principal); I21.4 Non-ST elevation (NSTEMI) myocardial infarction; I10 Essential (primary) hypertension
CPT/HCPCS: 36415; 80048; 82728; 83540; 83550; 85025; 85045; 85610; 85730

== ENCOUNTER 2020-10-01 07:49 | Day surgery (SDC) | payer MEDICARE, OTHER, SELFPAY ==
[2020-09-03 15:24] VITALS: BMI 34.2
[2020-09-30 07:11] VITALS: BMI 34.2
[2020-09-30 12:59] VITALS: BMI 34.2
--- NOTE | 2020-09-30 16:43 | PCM.HP.BLA ---
History and Physical Date of Admission: 10/01/20 [facility] [address] [place] [address] [id number] OFFICE VISITDate of Service: 09/03/20 MR#:[id number]:[id number]: TERESA GREWAL [facility] #:[id number]:1950 Provider: MELVI Morel/Sex: 70/F [facility] HPI History of Present Illness Surgical H&P: Yes Details: This is a 70-year-old female that presents here today for a hospital follow-up. Patient was admitted on August 13, 2020 with colitis. During her hospital stay she was noted to have a mildly elevated troponin that did trend upwards. Echocardiogram demonstrated an ejection fraction of 60% with stage II diastolic dysfunction and mild tricuspid in insufficiency. She was placed on a beta-raghu, statin, aspirin and lisinopril. Verapamil was discontinued. Was felt that she could follow-up with cardiology as an outpatient and then decide if we should pursue a diagnostic heart catheterization or stress test. From a cardiac standpoint, patient is doing well. She does not have any chest discomfort/heaviness/tightness. Her exercise tolerance is stable for her age. She is recovering from her hospital stay. She still does have some fatigue. She does try to walk routinely. She does not have any worsening symptoms of shortness of breath. She does not have any orthopnea. She denies PND. She does not have any symptoms of congestive heart failure. She does not have any palpitations that she is aware of. She does not have any lightheadedness or dizziness. She does not have any near-syncope or syncope. She does not have any lower extremity edema. She does not have any symptoms of claudication. Intake Vital Signs 09/03/20 15:24 Height 5 ft 3 in Weight: 193 lb BMI 34.2 BP 148/76 H Blood Pressure Location Lt brachial Position Sitting Respiration 16 Pulse 60 Pulse Source Auscultation Intake Visit Reasons: NSTEMI Welfare Aide Required: No Accompanied by: None Is patient in pain?: No Allergies propranolol [From Inderal LA] Allergy (Mild, Verified 09/03/20 15:27) PT UNSURE OF REACTION Medications venlafaxine 150 mg PO QHS 05/07/18 [History Confirmed 09/03/20] allopurinol 300 mg tablet 300 mg PO DAILY 06/01/18 [History Confirmed 09/03/20] ferrous sulfate 325 mg (65 mg iron) tablet 650 mg PO DAILY tab 06/01/18 [History Confirmed 09/03/20] calcium citrate 200 mg calcium-vitamin D3 3.125 mcg (125 unit) tablet 1 tab PO DAILY 07/15/20 [History Confirmed 09/03/20] ipratropium bromide 17 mcg/actuation HFA aerosol inhaler 1 inh INHALATION DAILY PRN PRN 07/15/20 [History Confirmed 09/03/20] lisinopril 10 mg tablet 10 mg PO DAILY 07/15/20 [History Confirmed 09/03/20] aspirin 81 mg PO BREAKFAST #0 tab 08/16/20 [Rx Confirmed 09/03/20] atorvastatin 40 mg tablet 40 mg PO QHS #90 tab 09/03/20 [Rx Confirmed 09/03/20] metoprolol tartrate 50 mg tablet 50 mg PO BID #180 tab 09/03/20 [Rx Confirmed 09/03/20] Ejection fraction %: 65 to 70 PFSH Medical History Acute kidney injury Acute UTI Anemia Anxiety Arthritis CAP (community acquired pneumonia) Colitis Depression Depression Difficulty swallowing Easy bruising Gastric reflux Gout History of back problems History of diverticulitis History of echocardiogram Hypertension Hypokalemia Lactic acidosis Leucocytosis Migraine headache Non-smoker Non-ST elevation (NSTEMI) myocardial infarction Poison rich dermatitis Renal insufficiency Scoliosis Septic shock Shortness of breath on exertion Surgical History Excision ectopic History of appendectomy History of colonoscopy History of foot surgery History of tubal ligation Family History Mother Breast cancer Hypertension Cancer skin cancer Father Diabetes Heart disease Hypertension Cancer skin cancer Brother Diabetes Social History Smoking Status: Never smoker alcohol intake: never substance use type: does not use ROS Const Const: Positive for other (Decreased stamina); Negative for fatigue, weakness, headache(s), frequent falls, difficulty sleeping or excessive sweating Eyes Eyes: Negative for loss of peripheral vision, transient loss of vision, blurry vision, double vision or tunnel vision ENT ENT: Negative for headache(s), dizziness, Nosebleed/epistaxis or balance problems Cardio Chest Pain: No Palpitations: No Edema: None Muscle aches with walking: None Resp Respiratory: Positive for SOB with activity (Occasionally with stairs); Negative for SOB at rest, SOB orthopnea\SOB lying down, Cough or paroxysmal nocturnal dyspnea GI GI: Negative nausea, vomiting, heartburn or black,tarry stools : Negative for hematuria Musc Musc: Negative for muscle aches/ myalgia, muscle weakness, joint pain or balance problems Skin Skin: Negative non-healing lesions, rash or unusual bruising Neuro Neuro: Negative for dizziness, lightheadedness, near syncope, syncope, frequent falls, headache(s), weakness, blurry vision, double vision or lack of coordination Nathaniel Hematologic/Lymphatic: Negative for easy bleeding or easy bruising Endo Endo: Negative for fatigue, excessive sweating or increased thirst/drinking Psych Psych: Negative for anxiety or depression Allergy Allergy/Immunology: Negative for hives and Negative for rash Cardiology Exam Const Appearance: cooperative, healthy appearing, comfortable, no acute distress and well developed Orientation: alert, awake and oriented x3 Head Head: normal to inspection Ears: hearing grossly normal bilaterally Nose: external nose normal Face and Sinus: face symmetric Mouth: oral mucosae normal, lip normal and moist mucous membranes Eyes General: appearance normal, both eyes and all related structures Eyelids: eyelids normal Conjunctivae: conjunctivae normal Pupils: PERRL EOM: EOM intact bilaterally Neck Neck: normal visual inspection and trachea midline; Negative no JVD Carotids: Negative bruit Chest Chest inspection: normal inspection of the chest Auscultation: Bilateral: Clear to Auscultation Cardio Palpation: normal PMI Rate: regular rate Rhythm: regular rhythm Heart sounds: S1 normal and S2 normal; Negative rub, gallop or murmur GI GI: soft, no hepatosplenomegaly and bowel sounds present Neuro General: patient alert, patient awake, patient oriented x3 and CN's II-XI intact bilaterally Extremities Pulses: Normal: Right Posterior Tibial Pulse, Left Posterior Tibial Pulse, Right Radial Pulse and Left Radial Pulse Lower Extremity Edema: None: Bilateral Psych Psychological: normal affect Assessment and Plan Assessment and Plan (1) Non-ST elevation (NSTEMI) myocardial infarction: Status: Acute Orders: Orders: Left Heart Cath/COR/LV Percut 09/03/20 Basic Metabolic Profile (BMP) 09/03/20 Partial Thromboplast Time 09/03/20 Prothrombin Time w/INR 09/03/20 CBC W/Diff, Automated 09/03/20 Plan - Katelyn OGDEN PA: With her elevated troponin from the hospital stay would like to pursue a diagnostic heart catheterization. Because of her colitis will not have her start Plavix however will have her continue with her aspirin. If she needs to have a stent will then consider if it should be drug-eluting versus bare metal. Patient Instructions: your heart cath is scheduled for 10/01 at 0930, you need to arrive at 0800 You will need a interstate bus driver that day, if you have a stent you will spend the night. Nothing to eat or drink after midnight. In the AM with a small sip of water: take your ASA, lisinopril and metoprolol. Please have your labs done prior to this procedure. (2) Hypertension: Status: Chronic Qualifiers: Hypertension type: essential hypertension Qualified Code(s): I10 - Essential (primary) hypertension Comment: controlled on meds Orders: Orders: Left Heart Cath/COR/LV Percut 09/03/20 Basic Metabolic Profile (BMP) 09/03/20 Partial Thromboplast Time 09/03/20 Prothrombin Time w/INR 09/03/20 CBC W/Diff, Automated 09/03/20 Plan - Katelyn OGDEN PA: Blood pressure is well controlled on current medications, we do not recommend any changes at this time. Plan Details Other Medications: Refilled: atorvastatin 40 mg PO QHS 90 tabs 3RF metoprolol tartrate 50 mg PO BID 180 tabs 3RF Follow Up: 3 Months (MMM) 9 Months (PFM) COVID (Procedure Consent) Procedure Criteria Procedure Criteria: Yes Elective The surgeon/proceduralist and patient have discussed in detail the risk of exposure to and/or potential harm posed by the COVID-19 virus with having a surgery/procedure at this time versus the risk of delaying the surgery/procedure. It is not possible to know either the risk of delaying the surgery or procedure or chance of getting an infection with perfect accuracy, but a joint decision was made between the patient and the surgeon/proceduralist to proceed at this time with the scheduled surgery/procedure as indicated on the consent form. Coding Level of Care Code Off vis,est,level 4 Diagnoses Non-ST elevation (NSTEMI) myocardial infarction I21.4 Hypertension I10 Hypertension type: essential hypertension Coding Level of Care Code Off vis,est,level 4 Diagnoses Non-ST elevation (NSTEMI) myocardial infarction I21.4 Hypertension I10 Hypertension type: essential hypertension Supplemental Info Supplemental Information Labs: No Data to Display Diagnostics: No Data to Display Pulmonary: No Data to Display 09/06/20 1658<Electronically signed by Katelyn OGDEN>Date Katelyn OGDEN [facility] Signature:Date (if applicable) CC: Dr. Toño Rey MD ~
--- NOTE | 2020-10-01 11:32 | CL.D_ITS ---
Patient Name: TERESA GREWAL Study Date: 10/01/2020 Performing: Ashok Bradshaw MD Ht: 62.99 inches 160 cm : 1950 Wt: 194.01 lbs 88 kg Age: 70 Gender: female BSA: 1.91 PROCEDURE(S) PERFORMED [id number]-[id number]/COR CLINICAL PROFILE AND INDICATIONS Indications: ACS > 24 hrs Heart Failure: None Stress/Imaging Stress/Image Study Performed: No Angina Classification Anginal Classification w/in 2 Weeks: Anginal Equivalent Dyspnea CAD Presentations: Non-STEMI. CONCLUSIONS Elevated Left Ventricular End Diastolic Pressure [place] Multivessel CAD (non angiographically significant appearing) RECOMMENDATIONS Risk factor modification Medical therapy DESCRIPTION OF PROCEDURE The patient arrived to the procedure lab. The risks and benefits of the procedure as well as a full d escription of our services here and current unavailability of surgical backup were fully explained to the patient and/or their significant other prior to the catheterization. The Timeout was completed, verifying the correct patient and procedure. The patient's procedural site was prepped and draped in the usual fashion. Local anesthetic was given subcutaneously to right radial region with Lidocaine 2% . Using a modified Seldinger technique, arterial access was obtained via the right radial artery, a 6 Fr sheath was inserted. Left Coronary Artery selective angiography was performed in multiple views u sing a 5 Fr. JL3.5 catheter, unable to engage. Left Coronary Artery selective angiography was perform ed in multiple views using a 5 Fr. JL4 catheter. unable to engage. Left Coronary Artery selective ang iography was performed in multiple views using a 5 Fr. JL4 catheter. unable to engage. Left Coronary Artery selective angiography was performed in multiple views using a 5 Fr. 4.0 Baxter ca theter. Right Coronary Artery selective angiography was then performed in multiple views using a 5 Fr . 4.0 Baxter catheter. LV to AO pullback pressures were then recorded.The arterial sheath was pulled a nd a TR Band was applied for hemostasis. 15cc of air CORONARY ANGIOGRAPHY DOMINANCE: Right Dominant LEFT HEART ASSESSMENT Left Ventricular Ejection Fraction: Not assessed Elevated Left Ventricular End Diastolic Pressure LVEDP: 31 mmHg LEFT MAIN: Proximal: [place] with the appearance of an eccentric 10 - 25 % Stenosis LEFT ANTERIOR DESCENDING ARTERY: Mild luminal irregularities CIRCUMFLEX ARTERY: Mild luminal irregularities RIGHT CORONARY ARTERY: Mild luminal irregularities COMPLICATIONS No Complications PROCEDURE MEDICATIONS Versed 1 mg IV Fentanyl 50 mcg IV Versed 1 mg IV Fentanyl 50 mcg IV Oxygen: 2 L/min via nasal cannula Heparin given IA 10/01/2020 09:44:11 Verapamil 2.5mg, Ntg 100mcgs, 3000 units of Heparin given IA 10/01/2020 09:44:11 IV Fluids: .9 NaCl IV started @ 150 ml/hr 10/01/2020 08:12:09 SUMMARY OF HEMODYNAMIC DATA Time AIR REST ECG 08:07:32 Art 202/86 (128) 09:37:58 AO 182/89 (123) SA 09:48:07 LV 181/5, 30 10:15:58 LV 190/3, 31 10:16:04 LVp 205/85, 92 10:16:11 AOp 184/78 (113) 10:16:16 ECG 10:29:48 Signed By Ashok Bradshaw MD On 10/01/2020 11:32:07 AM Ashok Bradshaw MD
== END 2020-10-01 12:00 | disposition home or self-care (01) ==
LOC: CLSP 07:49
PROVIDERS: PCP Family Medicine; Referring Provider Internal Medicine Cardiovascular Disease; Visit Provider Internal Medicine Cardiovascular Disease
DX: I21.4 Non-ST elevation (NSTEMI) myocardial infarction (principal); I25.10 Atherosclerotic heart disease of native coronary artery without angina pectoris; I10 Essential (primary) hypertension; F32.9 Major depressive disorder, single episode, unspecified; Z79.82 Long term (current) use of aspirin; Z79.899 Other long term (current) drug therapy
CPT/HCPCS: 93454; 99152; 99153; J7040; Q9967; C1769; C1894

== ENCOUNTER 2021-04-29 11:08 | Outpatient (CLI) | payer MEDICARE, OTHER, SELFPAY ==
[2021-04-29 12:33] LABS: PTHIN 159.2 pg/mL (18.4-80.1)
[2021-04-29 12:37] LABS: Vitamin D,25 Hydroxy 9.2 ng/mL
[2021-04-29 12:39] LABS: ALB/GLOB Ratio 0.7 RATIO (0.9-2.4); AST(SGOT) 22 U/L (15-37); Alanine Aminotransfer ALT/SGPT 26 U/L (13-56); Albumin, Serum 3.2 g/dL (3.2-5.0); Alkaline Phosphatase 204 U/L (45-117); Anion Gap 7 (5-15); BUN 15 mg/dL (7-18); BUN/Creat Ratio 16.6 RATIO (10-20); Calcium,Total 8.7 mg/dL (8.5-10.1); Chloride 107 mmol/L (98-107); Cholesterol 193 mg/dL (200); EST Glomerular Filtration Rate 65 mL/min (>60); Est Glom Filt Rate - Afr Amer 79 mL/min (>60); Globulin 4.4 g/dL (2.2-4.2); Glucose 96 mg/dL (74-106); High Density Lipoprotein 47 mg/dL; Potassium 4.1 mmol/L (3.5-5.1); Protein, Total 7.6 g/dL (6.4-8.2); Sodium Level 139 mmol/L (136-145); Triglycerides 102 mg/dL; Very Low Density Lipoprotein 20 mg/dL (5-40)
[2021-04-29 12:45] LABS: Microalbumin,Random Urine 91.7 mg/L (NO RANGE EST.); Microalbumin:Creatinine Ratio 112.9 mg/g CRE (<30 mg/g CRE)
== END 2021-04-29 23:59 | disposition home or self-care (01) ==
LOC: MFPLAB 11:10
PROVIDERS: PCP Family Medicine; Referring Provider Family Medicine; Visit Provider Family Medicine
DX: I10 Essential (primary) hypertension (principal); M85.80 Other specified disorders of bone density and structure, unspecified site
CPT/HCPCS: 36415; 80053; 80061; 82043; 82306; 82570; 83970

== ENCOUNTER 2021-05-27 10:10 | Outpatient (CLI) | payer MEDICARE, OTHER, SELFPAY | END 2021-05-27 23:59 | disposition home or self-care (01) | PROVIDERS: PCP Family Medicine; Visit Provider Family Medicine | DX: Z20.822 Contact with and (suspected) exposure to COVID-19 (principal) | CPT/HCPCS: 87635; U0003; U0005 ==

== ENCOUNTER → 2021-09-12 | Outpatient (CLI) | payer MEDICARE, OTHER, SELFPAY ==
--- NOTE | 2021-09-12 11:50 | BI_ITS ---
MAMMOGRAPHY - BILATERAL SCREENING REASON FOR EXAM: Female, 71 years old. Routine annual screening examination. PERTINENT HISTORY: Mother with breast cancer. Aunt with breast cancer. TECHNIQUE: Digital bilateral breast shashi (3D mammographic acquisition) in the CC and MLO projections. 2-D mediolateral oblique (MLO) and craniocaudad (CC) views of both breasts were obtained. CAD: Full Field Digital Mammography with Computer Added Detection was performed. COMPARISON: Comparison is made with prior study 12/31/2016 and 08/28/2014. FINDINGS: Breast Composition: The breasts are almost entirely fatty. There are no dominant masses or suspicious calcifications. Stable benign-appearing bilateral axillary lymph nodes. Stable asymmetry of breast tissue where more breast tissue is seen in the inferior medial portion of the left breast side with the scattered calcifications. No other significant abnormalities are identified. There has been no significant change since the prior study. BI/SCREENING MAMM (CAD), BILAT IMPRESSION: Stable bilateral screening mammogram. Yearly follow-up mammogram recommended. (A) ASSESSMENT CATEGORY: BIRADS Category 2: Benign. A letter regarding these results will be sent to the patient by the facility within 30 days. Approximately 10% of breast cancers are not detected by mammography. A normal mammogram should not delay biopsy of a clinically suspicious abnormality. [id number] Electronically Signed: Gigi Suresh MD at 13:47 EDT ,
== END | disposition home or self-care (01) ==
LOC: OPBI 11:49
PROVIDERS: PCP Family Medicine; Referring Provider Nurse Practitioner Family; Visit Provider Nurse Practitioner Family
DX: Z12.31 Encounter for screening mammogram for malignant neoplasm of breast (principal); Z80.3 Family history of malignant neoplasm of breast
CPT/HCPCS: 77067

== ENCOUNTER → 2021-09-23 | Outpatient (CLI) | payer MEDICARE, OTHER, SELFPAY ==
--- NOTE | 2021-09-23 08:21 | ECHOCS_ITS ---
Reason For Study: DYSPNEA Procedure This was a 2D Doppler, Color Flow transthoracic echocardiogram. The study was technically difficult. Contrast injection was performed. Exam performed in department. Left Ventricle Based upon the 2D echocardiographic images obtained there appears to be grossly normal left ventricular size, wall motion, and systolic function. The estimated ejection fraction is 55 %. Diastolic function is indeterminate. Right Ventricle Based upon the 2D echocardiographic images obtained there appears to be grossly normal right ventricular size and systolic function. Atria Normal left atrium. Normal right atrium. No doppler evidence for ASD. Mitral Valve There is no mitral annular calcification. Normal mitral valve. Tricuspid Valve Normal tricuspid valve. Aortic Valve Trisinus/trileaflet aortic valve. Mild focal aortic valve thickening. Mild focal aortic valve calcification. Pulmonic Valve The pulmonic valve is not well visualized. Great Vessels The aortic valve is not well visualized. Pericardium/Pleural No pericardial effusion. Medication Diluted definity 1ml given slow IV push to enhance endocardial definition. MMode/2D Measurements & Calculations SV(MOD-sp4): 31.3 ml SV(sp4-el): 31.7 ml LVAd ap4: 20.8 cm2 LVLd ap4: 6.9 cm EDV(MOD-sp4): 54.5 ml EDV(sp4-el): 53.2 ml LVAs ap4: 12.6 cm2 LVLs ap4: 6.3 cm ESV(MOD-sp4): 23.1 ml ESV(sp4-el): 21.5 ml EF(MOD-sp4): 57.5 % EF(sp4-el): 59.7 % Time Measurements MV dec time: 0.23 sec Doppler Measurements & Calculations MV E max eleazar: 85.7 cm/sec Lat Peak E' Eleazar: 5.6 cm/sec Med Peak E' Eleazar: 6.6 cm/sec MV A max eleazar: 91.3 cm/sec E/E' lat: 15.4 E/E' med: 12.9 MV E/A: 0.94 MV V2 max: 84.9 cm/sec Ao V2 max: 139.1 cm/sec MV max P.9 mmHg MV dec slope: 381.1 cm/sec2 Ao max P.7 mmHg MV V2 mean: 42.0 cm/sec Ao V2 mean: 88.5 cm/sec MV mean P.96 mmHg Ao mean P.7 mmHg MV V2 VTI: 33.3 cm Ao V2 VTI: 32.7 cm LV V1 max: 115.9 cm/sec PA V2 max: 101.2 cm/sec LV V1 max P.4 mmHg PA V2 mean: 67.9 cm/sec LV V1 mean P.7 mmHg LV V1 mean: 75.0 cm/sec LV V1 VTI: 25.4 cm ECHO/Echo Complete W/ Contrast Interpretation Summary The study was technically difficult. Contrast injection was performed. Based upon the 2D echocardiographic images obtained there appears to be grossly normal left ventricular size, wall motion, and systolic function. The estimated ejection fraction is 55 %. Mild focal aortic valve thickening. Mild focal aortic valve calcification. Diastolic function is indeterminate. Ordering Physician: Ashok Bradshaw Referring Physician: Ashok Bradshaw Performed By: Emilia Nicole RCS
== END | disposition home or self-care (01) ==
LOC: CVS 08:19
PROVIDERS: PCP Family Medicine; Referring Provider Internal Medicine Cardiovascular Disease; Visit Provider Internal Medicine Cardiovascular Disease
DX: I21.4 Non-ST elevation (NSTEMI) myocardial infarction (principal); R06.02 Shortness of breath
CPT/HCPCS: 93306; Q9957; A4216; C8929

== ENCOUNTER → 2022-03-02 | Outpatient (CLI) | payer MEDICARE, OTHER, SELFPAY ==
[2022-03-02 17:55] LABS: Absolute Neutrophil Count 5.2 X10^3/uL (2.0-7.7); Basophil% 1.2 % (0-1); Eosinophil# 0.61 X10^3/uL; Eosinophils% 7.2 % (0-5); Hematocrit 47.7 % (37-47); Hemoglobin 14.9 g/dL (12.0-15.0); Lymphocyte % 21.3 % (19-41); Mean Corp Hgb Conc 31.2 g/dL (32-36); Mean Corpuscular Hgb 28.9 pg (27.0-32.0); Mean Corpuscular Volume 92.6 fL (81-99); Mean Platelet Vol. 11.2 fl (6.2-12.0); Monocyte# 0.71 X10^3/uL; Monocyte% 8.4 % (0-10); NRBC Flagged by Analyzer 0 % (0-5); Neutrophil % 61.5 % (47-70); Platelet Count 417 K/mm3 (150-450); RBC Distribution Width CV 13.9 % (11.6-14.6); RBC Distribution Width SD 47.6 fl (35.1-43.9); Red Blood Count 5.15 M/mm3 (4.2-5.4); White Blood Count 8.5 K/mm3 (4.4-11.0)
[2022-03-02 18:13] LABS: BNP,B-Type NATRIURETIC PEPTIDE 68.3 pg/mL (0-100)
[2022-03-02 18:14] LABS: Vitamin B12 356 pg/mL (211-911); Vitamin D,25 Hydroxy 12.8 ng/mL
[2022-03-02 18:29] LABS: ALB/GLOB Ratio 0.8 RATIO (0.9-2.4); AST(SGOT) 22 U/L (15-37); Alanine Aminotransfer ALT/SGPT 29 U/L (13-56); Albumin, Serum 3.5 g/dL (3.2-5.0); Alkaline Phosphatase 216 U/L (45-117); Anion Gap 12 (5-15); BUN 24 mg/dL (7-18); BUN/Creat Ratio 20.2 RATIO (10-20); Calcium,Total 9.1 mg/dL (8.5-10.1); Chloride 108 mmol/L (98-107); Creatinine, Serum 1.19 mg/dL (0.55-1.02); EST Glomerular Filtration Rate 47 mL/min (>60); Est Glom Filt Rate - Afr Amer 57 mL/min (>60); Ferritin 62 ng/mL (8-252); Globulin 4.3 g/dL (2.2-4.2); Glucose 94 mg/dL (74-106); Potassium 4.5 mmol/L (3.5-5.1); Protein, Total 7.8 g/dL (6.4-8.2); Sodium Level 141 mmol/L (136-145); Thyroid Stim Hormone (TSH) 1.65 uIU/mL (0.358-3.74)
== END | disposition home or self-care (01) ==
LOC: MFPLAB 14:33
PROVIDERS: PCP Family Medicine; Visit Provider Family Medicine
DX: D64.9 Anemia, unspecified (principal); I50.32 Chronic diastolic (congestive) heart failure; M85.80 Other specified disorders of bone density and structure, unspecified site; R53.83 Other fatigue
CPT/HCPCS: 36415; 80053; 82306; 82607; 82728; 82746; 83880; 84443; 85025

== ENCOUNTER → 2022-03-25 | Outpatient (CLI) | payer MEDICARE, OTHER, SELFPAY ==
--- NOTE | 2022-03-25 09:56 | BD_ITS ---
STUDY: DUAL ENERGY X-RAY ABSORPTIOMETRY / DXA REASON FOR EXAM: Female, 72 years old. 627.8Menopausal postmenopausalBONE DENSITY REASON FOR EXAM TECHNIQUE: Bone Mineral Density (BMD) measurements of lumbar spine and bilateral hips were obtained. COMPARISON: Comparison is made with prior study date 11/05/2009. FINDINGS: Lumbar Spine (L1-L4): g/cm2 (0.781) / T-score (-2.5) / Z-score (-0.1) Findings are suggestive of osteopenia with a high fracture risk. Left Femur Total: g/cm2 (0.814) / T-score (-1.0) / Z-score (0.6) Left Femoral Neck: g/cm2 (0.554) / T-score (-2.7) / Z-score (-0.7) Right Femur Total: g/cm2 (0.837) / T-score (-0.9) / Z-score (0.8) Right Femoral Neck: g/cm2 (0.684) / T-score (-1.5) / Z-score (0.5) The T-Scores on the most recent prior examination were: Lumbar Spine (L1-L4): There has been worsening of bone density since the previous examination. Left Femur Total: which represents a worsening of 1.5%. Right Femur Total: which represents a worsening of 4.7%. BD/Dexa Bone Density Study IMPRESSION: The patient is considered osteoporotic as outlined below according to World Rhett Organization (WHO) criteria with a high fracture risk. There has been worsening of bone density since the previous examination. Reference Information: The T-score is the number of standard deviations above or below the standard which is normal for young adults at their peak bone mineral density. The World Health Organization (WHO) interprets the T-scores as follows: Above -1 Normal bone density Between -1 and -2.5 Osteopenia Equal to / or below -2.5 Osteoporosis As a practical clinical guideline, osteopenia may be graded as follows: Mild -1 through -1.5 Moderate -1.6 through -2.0 Severe -2.1 through -2.4 The Z-score is the number of standard deviations above or below age-matched controls. A Z-score of less than -1.5 would be considered abnormal. References: 1. NIH Osteoporosis and Related Bone Diseases www osteo.org 2. International Society for Clinical Densitometry www iscd.org 3. National Osteoporosis Foundation www nof.org Electronically Signed: Gigi Suresh MD at 15:33 EST ,
== END | disposition home or self-care (01) ==
LOC: OPBD 09:48
PROVIDERS: PCP Family Medicine; Visit Provider Family Medicine
DX: M81.0 Age-related osteoporosis without current pathological fracture (principal)
CPT/HCPCS: 77080

== ENCOUNTER 2022-04-28 10:30 | Outpatient (RCR) | payer MEDICARE, OTHER, SELFPAY ==
--- NOTE | 2022-04-02 11:15 | HP.PTEVAL ---
Patient's Visit Information TERESA GREWAL is a 72 year old F referred to Physical Therapy by Kahlil Wilkinson MD with a diagnosis of osteoporosis. Date of Evaluation: 04/02/22 Physical Therapist: Kahlil Craig, DPT, OCS, CSCS - Visit Plan Frequency: 2x /Week Duration: 4-6 Weeks Plan: 2x/week for 4-6 weeks. Please teach early on LB ROM extension and rotation, HS and quad stretching to HEP. Then core strength on mat to HEP. then gym exercises for WB for OP and home walking program. Focus on postural muscles and LE and WB ex for gym and consider long term care phlebotomist membership. - Subjective I had bone densitometry and have borderline OA changes. Was walking at beach and felt weak and out of shape. Diagnosed with osteoporosis besed on bone density. Pain is minimal in LB and common for her for last 2 mopnths and infrequently in past. Only LB, no leg symptoms. Sleep is not interrupted. Activities are pretty normal. No recent fractures, no falls. Balance feels Ok most of time. not employed. Grocery trips are OK, but longer walks are hard. Uses cart at store. Spends day getting up at 8 and lies around a little bit, nice breakfast, tea, stands in back for fresh air, does some house work/laundry etc, Lunch, chores, goes out in car once per day. Dinner and wind down, watches [employer]. No regular exercises. No active hobbies but does knit. Lives alone in one story with 1 step to enter which is no problem. DREss and basic ADLs are I. - Pain LBP Pain Intensity (Out of 10): 0 Pain Intensity Range: 0, 5 Comment: worse with sitting or lying around, better moving - Objective Walks I, trasnfers I bed and chair. Steps reciprocal with one rail but shows weakness and feels wobbly. Posture shows some scoliosis with R. hip higher than L and has been present since childhood. Also has excessive kyphosis in thoracic spine. LE AROM WFL at hips and knees and no pain, quads and HS mod tight. LB aROM shows some discomfort centrally with extension and limited ext thoracic spine. others slow but WFL. UE AROM WFL and without pain. reflexes LE 2/3 patella and achilles. Sensation LE WNL to gross light touch. Strength hips 3+, knees 4- andkles 4-. coordination to reciprocal toe and heel tap is easy. - Balance/Special Test Scores Functional Gait Assessment Score: 25 % Disability: 16.6700 Lower Extremity Functional Score: 43 30 Second Chair Rise Test Seconds: 12 - Goals Goal 1:: Pt feel back pain 90% better at 1/10 at worst Goal Time Frame: 4-6 Weeks Goal 2:: I approp HEP and gym ex for strength and posture and LB ROM Goal Time Frame: 4-6 Weeks Goal 3:: Walk with son without falling behind or feeling tired Goal Time Frame: 4-6 Weeks Goal 4:: Up and down steps withot showing or feeling weak Goal Time Frame: 4-6 Weeks Goal 5:: 15 on 30 sec sit to stand test. Goal Time Frame: 4-6 Weeks Goal 6:: 53 LEFS score Goal Time Frame: 4-6 Weeks - Rehabilitation Potential Physical Therapy Diagnosis: Some pain and weakness from sedentarism that will effect OP Rehabilitation Potential: Good - Anticipated Interventions Patient/Client Instruction: Educate patient on: Condition, Plan of Care For the Purpose of:: To decrease pain, To increase ROM, To improve muscle performance and motor function, To increase tolerance to activity/condition/position, To improve ability of physical actions for home/community/work/leisure Therapeutic Exercise to Include: Strength training, Postural training, Flexibilty training For the Purpose of:: To decrease pain, To improve nutrient delivery to tissue, To improve muscle performance and motor function, To increase tolerance to activity/condition/position, To improve ability of physical actions for home/community/work/leisure Thank you for the opportunity to evaluate your patient. For Medicare and Medicare HMO plans, please review the plan of care and approve it. It will need to be FAXED BACK to us at [phone] for Medicare purposes. For Medicare only, by signing this I certify the plan of care. Please let me know if there are questions or concerns regarding this plan of care. Physician Signature: Date:
--- NOTE | 2022-07-02 11:31 | HP.PT.NRP ---
TERESA GREWAL was seen in my office for initial evaluation on 04/02/22. The following Plan of Care was established for this patient: Initial Frequency: 2x /Week Initial Duration: 4-6 Weeks Patient/Client Instruction: Educate patient on: Condition, Plan of Care For the Purpose of:: To decrease pain, To increase ROM, To improve muscle performance and motor function, To increase tolerance to activity/condition/position, To improve ability of physical actions for home/community/work/leisure Therapeutic Exercise to Include: Strength training, Postural training, Flexibilty training For the Purpose of:: To decrease pain, To improve nutrient delivery to tissue, To improve muscle performance and motor function, To increase tolerance to activity/condition/position, To improve ability of physical actions for home/community/work/leisure This patient was last seen in our office 04/28/22. Pertinent comments regarding their Physical therapy will appear below: Pt seen 6 visits of POC and then cancelled last visit without rescheduling recheck, at this point it has been over two months and I will discontinue due to nonattendance. At this point I will be discontinuing this patient from physical therapy. I would be happy to see this patient again in the future if found appropriate by the physician. Thank you! Kahlil Craig, DPT, OCS, CSCS Balance/Gait/Functional tests - Balance/Special Test Scores Functional Gait Assessment Score: 25 % Disability: 16.6700 Lower Extremity Functional Score: 43 30 Second Chair Rise Test Seconds: 12
== END 2022-04-28 19:00 | disposition home or self-care (01) ==
LOC: PT 10:30
PROVIDERS: PCP Family Medicine; Referring Provider Family Medicine; Visit Provider Family Medicine
DX: M81.0 Age-related osteoporosis without current pathological fracture (principal)
CPT/HCPCS: 97110; 97162

== ENCOUNTER → 2022-11-10 | Outpatient (CLI) | payer MEDICARE, OTHER, SELFPAY ==
[2022-11-10 17:49] LABS: Absolute Lymphocyte Count 1.82 X10^3/uL (0.83-4.51); Absolute Neutrophil Count 3.9 X10^3/uL (2.0-7.7); Basophil% 1.4 % (0-1); Eosinophils% 8.6 % (0-5); Hematocrit 39.7 % (37-47); Hemoglobin 12.6 g/dL (12.0-15.0); Lymphocyte # 1.82 X10^3/ul (0.83-4.51); Mean Corp Hgb Conc 31.7 g/dL (32-36); Mean Corpuscular Hgb 29.1 pg (27.0-32.0); Mean Corpuscular Volume 91.7 fL (81-99); Mean Platelet Vol. 11.5 fl (6.2-12.0); Monocyte% 8.6 % (0-10); NRBC Flagged by Analyzer 0 % (0-5); Neutrophil # 3.86 X10^3/uL (2.7-7.7); Neutrophil % 55.3 % (47-70); Platelet Count 358 K/mm3 (150-450); RBC Distribution Width CV 16.3 % (11.6-14.6); RBC Distribution Width SD 55.2 fl (35.1-43.9); Red Blood Count 4.33 M/mm3 (4.2-5.4)
[2022-11-10 18:24] LABS: ALB/GLOB Ratio 0.7 RATIO (0.9-2.4); AST(SGOT) 23 U/L (15-37); Alanine Aminotransfer ALT/SGPT 29 U/L (13-56); Albumin, Serum 3.2 g/dL (3.2-5.0); Alkaline Phosphatase 155 U/L (45-117); Anion Gap 4 (5-15); BUN 20 mg/dL (7-18); BUN/Creat Ratio 17.1 RATIO (10-20); Calcium,Total 8.7 mg/dL (8.5-10.1); Chloride 109 mmol/L (98-107); Creatinine, Serum 1.17 mg/dL (0.55-1.02); EST Glomerular Filtration Rate 48 mL/min (>60); Est Glom Filt Rate - Afr Amer 58 mL/min (>60); Globulin 4.3 g/dL (2.2-4.2); Glucose 87 mg/dL (74-106); Potassium 4.2 mmol/L (3.5-5.1); Protein, Total 7.5 g/dL (6.4-8.2); Sodium Level 139 mmol/L (136-145); Uric Acid 3.4 mg/dL (2.6-6.0)
[2022-11-10 18:33] LABS: Vitamin D,25 Hydroxy 17.6 ng/mL
== END | disposition home or self-care (01) ==
LOC: MFPLAB 16:11
PROVIDERS: PCP Family Medicine; Visit Provider Family Medicine
DX: I50.32 Chronic diastolic (congestive) heart failure (principal); M81.0 Age-related osteoporosis without current pathological fracture; M10.9 Gout, unspecified
CPT/HCPCS: 36415; 80053; 82306; 84550; 85025

== ENCOUNTER 2024-01-10 08:39 | Day surgery (SDC) | payer MEDICARE, OTHER, SELFPAY ==
[2024-01-10] VITALS (10 sets, daily range): BP systolic 89–143; BP diastolic 44–67; PULSE 50–59; RESP 16; TEMP 36.1–36.8; O2SAT 94–100; BMI 28.0
--- NOTE | 2024-01-10 | COLBX_PTH ---
PATIENT: TERESA GREWAL LOC: EN U#:[id number] AGE/SX: 74/F ROOM: RE01/10/[address]: Dr. Khadijah Zelaya MD : 1950 BED: DIS: 01/10/2024 SPEC #: [id number] RECD: 01/10/24 13:30 STATUS: JIMMY NANETTE #: [id number] MYRIAM: 01/10/24 00:[address]: Khadijah Zelaya DEPT: SURGICAL PATHOLOGY RECD BY: Loco Soliz ENTERED: 01/10/24 13:31 SP TYPE: COLON BX OTHR DR: Dr. Kahlil Wilkinson MD Tissues: Ascending colon Procedures: Surgery Specimen Level IV HEADER OPERATION: Colonoscopy, polypectomy PRE-OP DIAGNOSIS: History of colonic polyps TISSUE SUBMITTED: Ascending colon polyp MICROSCOPIC DIAGNOSIS Ascending colon polyp, polypectomy: Fragments of tubular adenoma. 01/11/2024 MICROSCOPIC DESCRIPTION Slides are reviewed. GROSS DESCRIPTION Received in fixative is one container labeled with the patient's name and designated Ascending colon polyp. The specimen consists of two irregular fragments of hines soft tissue that measure 0.5cm in greatest dimension. The specimen is totally submitted in one cassette. 01/10/2024 TC:1 CPT:31326
--- NOTE | 2024-01-10 09:29 | PRE.ANES_ITS ---
ASA Classification* ASA Classification ASA Classification: 2 Assessment & Plan Anesthesia* Anesthesia Assessment Anesthesia Assessment: Discussed sedation and/or anesthesia options, risks, benefits, and alternatives with patient/parents/legal guardian/POA. Questions invited. The patient/parents/legal guardian/POA seems to understand and agrees to proceed with anesthesia plan. Reviewed the physical assessment, medical history, allergy history and patient home medications list prior to surgery/procedure/anesthetic and documented any changes. Performed airway and anesthesia risk assessments. Anesthesia Type Anesthesia Type: MAC History Source History Obtained from:: Patient and Chart Anesthesia Focused Assessment* Temperature: 97.3 F Pulse Rate: 50 Blood Pressure: 143/67 Respiratory Rate: 16 Pulse Ox: 100 Oxygen Delivery Method: Room Air Airway Assessment Mouth opens: >3 cm Mallampati Score: III Teeth Condition: Caps/Crowns (Front incisors are capped. They are tight. ) and Missing (1 missing molar. Upper left.) Neck Range of motion (ROM): Limited ROM (Somewhat decreased extension) Focused Labs Anesthesia Preop lab: CBC WBC 7.0 K/mm3 (4.4-11.0) 11/10/22 16:12 RBC 4.33 M/mm3 (4.2-5.4) 11/10/22 16:12 Hgb 12.6 g/dL (12.0-15.0) 11/10/22 16:12 Hct 39.7 % (37-47) 11/10/22 16:12 Plt Count 358 K/mm3 (150-450) 11/10/22 16:12 CHEMISTRY Potassium 4.2 mmol/L (3.5-5.1) 11/10/22 16:12 Sodium 139 mmol/L (136-145) 11/10/22 16:12 Magnesium 2.4 mg/dL (1.6-2.6) 08/13/20 20:20 BUN 20 mg/dL (7-18) H 11/10/22 16:12 Creatinine 1.17 mg/dL (0.55-1.02) H 11/10/22 16:12 Glucose 87 mg/dL (74-106) 11/10/22 16:12 TSH 1.65 uIU/mL (0.358-3.74) 03/02/22 14:39 COAG PT 14.2 SECONDS (11.7-14.9) 09/25/20 11:48 Pre-Assessment Diagnosis/Proposed Procedure Planned Operative Procedure(s): CSCOPE Anesthesia History Anesthesia History - crusher dry ground mica: Anesthesia History - crusher dry ground mica Hx Hospitalization No 01/07/24 10:35 Any Problems With Anesthesia No 01/07/24 10:35 Cholinesterase deficiency No 01/07/24 10:35 You/Your Family Experience No 01/07/24 10:35 fever (hyperthermia) with Relationship Recent Exposure to Contagious No 06/20/18 09:22 Disease Does patient have nerve No 01/07/24 10:35 stimulator Patient instructed to have device shut off --Does patient have Pacemaker or ICD? When Was Last Pacemaker Check QUESTION #4 FULL TEXT: You/Your Family Experience fever (hyperthermia) with Anesthesia Last Oral Intake Last Oral intake: Last Oral Intake NPO since Meds taken in AM with sips of water? Meds patient instructed to take am of surgery Any additional information?: Yes NPO since: 00:00 PONV PONV - crusher dry ground mica: PONV - crusher dry ground mica Female Yes 01/07/24 10:35 HX of Motion Sickness No 01/07/24 10:35 HX of N/V After Surgery No 01/07/24 10:35 Non-Smoker Yes 01/07/24 10:35 Duration of Surgery greater No 01/07/24 10:35 than 60 minutes Number of Risk Factors 2 01/07/24 10:35 PONV Score Moderate Risk 01/07/24 10:35 Height & Weight Height & Weight: Anesthesia: Height & Weight Height 5 ft 3 in 11/10/23 14:18 Respiratory Assessment Respiratory Assessment - crusher dry ground mica: Respiratory Tract Infection Hx - crusher dry ground mica Hx Respiratory Tract Infection No 01/07/24 10:35 STOP Sleep Apnea STOP Sleep Apnea - crusher dry ground mica: STOP Sleep Apnea - crusher dry ground mica Hx Hypertension Yes: CONTROLLED WITH MED 01/07/24 10:35 Hx Sleep Apnea No 01/07/24 10:35 CPAP BIPAP Do you snore loudly (louder No 01/07/24 10:35 than talking or can be heard Do you often feel tired/ No 01/07/24 10:35 fatigued/ sleepy during daytime? Has anyone observed you stop No 01/07/24 10:35 breathing during sleep? STOP Results Negative 01/07/24 10:35 QUESTION #5 FULL TEXT : Do you snore loudly (louder than talking or can be heard through closed doors)? Tobacco Use History Tobacco Use History - crusher dry ground mica: Tobacco Use History - crusher dry ground mica Tobacco Use Smoking Status Never smoker 01/07/24 10:35 Hx Tobacco Use No 01/07/24 10:35 Years Smoking Packs Smoked per Day Smoking Cessation Date was within the last 15 years Hx Smoking Cessation Date Hx Smoking Cessation Counseling Hematologic Medial History Hematologic Hx - crusher dry ground mica: Hematologic Medical Hx - lining maker hand Hx of Blood Transfusion Yes 01/07/24 10:35 Hx of Transfusion in last 3 No 01/07/24 10:35 Months Date of Last Transfusion (if within last 3 months) Ever experience any problems No 01/07/24 10:35 with transfusion(s)? Specify any problems Hx of Preganancy in last 3 No 01/07/24 10:35 Months Nurse Filling Out Transfusion DSCHRIBER 01/07/24 10:35 & Questions: Date: 01/07/24 01/07/24 10:35 Time: 10:36 01/07/24 10:35 Patient unable to answer at this time (ie. confused, unrespo /Reproduction History /Reproductive History - crusher dry ground mica: /Reproductive Hx- crusher dry ground mica Hx Now No 01/07/24 10:35 Gestational Age (in weeks): EDC: Hx Hx Para Hx Section SAB No 01/07/24 10:35 PFSH Medical History Wears hearing aid Wears glasses Post-menopausal High cholesterol Easy bruising Back pain Cardiology follow-up encounter MDD (major depressive disorder) Osteopenia COVID-19 (~04/2021) History of left heart catheterization (LHC) (~10/01/20) Colitis Leucocytosis Hypokalemia Renal insufficiency Non-ST elevation (NSTEMI) myocardial infarction Acute UTI Septic shock Acute kidney injury Lactic acidosis Gout Migraine headache Scoliosis History of diverticulitis Non-smoker History of echocardiogram Depression Anemia Depression Hypertension Home Medications ?Medication ?Instructions ?Recorded ?Last Taken ?Type allopurinol 300 mg tablet 300 mg PO DAILY GOUT 06/01/18 Unknown History calcium 200 mg (as 1 tab PO DAILY supplement 07/15/20 Unknown History citrate)-vitamin D3 3.125 mcg (125 unit) tablet aspirin 81 mg tablet,delayed 81 mg PO BREAKFAST #0 tabs 08/16/20 12/31/23 Rx release ferrous sulfate 325 mg (65 mg 325 mg PO BID IRON 09/08/21 12/31/23 History iron) tablet ipratropium bromide 21 mcg (0.03 2 spray intranasal 4X/DAY PRN 09/08/21 Unknown History %) nasal spray allergy symptoms alendronate 70 mg tablet 70 mg PO HARRY 03/30/23 Unknown History metoprolol tartrate 50 mg tablet 50 mg PO BID #180 tabs 08/16/23 01/09/24 Rx atorvastatin 40 mg tablet 40 mg PO QHS #90 TABLETS 09/23/23 Unknown Rx fluoxetine 20 mg capsule 20 mg PO DAILY 11/10/23 Unknown History lisinopril 40 mg tablet 40 mg PO QDAY 11/10/23 Unknown History Allergy/AdvReac Type Severity Reaction Status Date / Time propranolol (From Inderal [place]) Allergy Mild Other Verified 01/10/24 09:11 Family History Mother Breast cancer Hypertension Cancer skin cancer Father Diabetes Heart disease Hypertension Cancer skin cancer Brother Diabetes Surgical History History of esophagogastroduodenoscopy (EGD) History of tubal ligation History of colonoscopy History of foot surgery Excision ectopic History of appendectomy Social History Smoking Status: Never smoker alcohol intake: never substance use type: does not use caffeine: Yes (twice per week) Type: coffee Review of Systems (Anesthesia) ROS Narrative System reviewed and no additional complaints, except as documented.
--- NOTE | 2024-01-10 09:35 | H&P.OPEN ---
HPI - General General Date of Service: 01/10/24 HPI Narrative TERESA GREWAL, is a 74 F who presents for a screening colonoscopy due to history of colon polyps. Patient last colonoscopy was in 2019 patient did attempt to prep again and ended up in the hospital with ischemic colitis the last time. Patient was able to complete the prep denies any increased abdominal pain. 11/10/23 office visit HPI HPI: 73-year-old female presents to discuss whether or not she really needs a repeat colonoscopy. Patient last colonoscopy was in 2019 showed inflammatory polyp and a tubular adenoma recommended 3-year follow-up. The day before her colonoscopy and patient is prepping she got very lightheaded and sick and did end up going to the ER and CT abdomen pelvis showed colitis questionable ischemic. patient also had a potassium of 2.9, elevated troponin at that time. Patient's last colonoscopy prior 2018 was 6 years prior and she did have polyps at that time as well. Currently patient states she has bowel movements daily denies any blood patient's hemoglobin is 12 she states she takes iron daily. [facility] Medical History Wears hearing aid Wears glasses Post-menopausal High cholesterol Easy bruising Back pain Cardiology follow-up encounter MDD (major depressive disorder) Osteopenia COVID-19 (~04/2021) History of left heart catheterization (LHC) (~10/01/20) Colitis Leucocytosis Hypokalemia Renal insufficiency Non-ST elevation (NSTEMI) myocardial infarction Acute UTI Septic shock Acute kidney injury Lactic acidosis Gout Migraine headache Scoliosis History of diverticulitis Non-smoker History of echocardiogram Depression Anemia Depression Hypertension Home Medications ?Medication ?Instructions ?Recorded ?Last Taken ?Type allopurinol 300 mg tablet 300 mg PO DAILY GOUT 06/01/18 Unknown History calcium 200 mg (as 1 tab PO DAILY supplement 07/15/20 Unknown History citrate)-vitamin D3 3.125 mcg (125 unit) tablet aspirin 81 mg tablet,delayed 81 mg PO BREAKFAST #0 tabs 08/16/20 12/31/23 Rx release ferrous sulfate 325 mg (65 mg 325 mg PO BID IRON 09/08/21 12/31/23 History iron) tablet ipratropium bromide 21 mcg (0.03 2 spray intranasal 4X/DAY PRN 09/08/21 Unknown History %) nasal spray allergy symptoms alendronate 70 mg tablet 70 mg PO HARRY 03/30/23 Unknown History metoprolol tartrate 50 mg tablet 50 mg PO BID #180 tabs 08/16/23 01/09/24 Rx atorvastatin 40 mg tablet 40 mg PO QHS #90 TABLETS 09/23/23 Unknown Rx fluoxetine 20 mg capsule 20 mg PO DAILY 11/10/23 Unknown History lisinopril 40 mg tablet 40 mg PO QDAY 11/10/23 Unknown History Allergy/AdvReac Type Severity Reaction Status Date / Time propranolol (From Inderal [place]) Allergy Mild Other Verified 01/10/24 09:11 Family History Mother Breast cancer Hypertension Cancer skin cancer Father Diabetes Heart disease Hypertension Cancer skin cancer Brother Diabetes Surgical History History of esophagogastroduodenoscopy (EGD) History of tubal ligation History of colonoscopy History of foot surgery Excision ectopic History of appendectomy Social History Smoking Status: Never smoker alcohol intake: never substance use type: does not use caffeine: Yes (twice per week) Type: coffee Past Medical/Surgical History Planned Operation Planned Operative Procedure(s): CSCOPE S.O.S: No Previous Hospitalizations/Surgeries HX Hospitalizations: No HX of Surgeries: appendectomy TUBAL LEFT FOOT SURGERY TUBAL LIGATION 1982 COLONOSCOPY Any Problems With Anesthesia: No You/Your Family Experience Fever (Hyperthermia) With Anes: No Cholinesterase deficiency: No Cardiovascular Hx Chest Pain within Last 2 months: No Hx of Irregular Heartbeat and/or Afib: No Hx Heart Attack: No Hx Congestive Heart Failure: Yes (PER HX) Hx Rheumatic Fever: No Hx Hypertension: Yes (CONTROLLED WITH MED) Hx Internal Defibrillator: No Hx Pacemaker: No Hx Cardiac Catheterization: No Hx Cardiac Surgery/Stents/Etc.: No Hx Stress Test: No (ECHO 2018 [facility]) Hx Pain in Legs when Walking/Leg Cramps: No Respiratory Chronic Cough: No HX of Shortness of Breath: No (DENIES) Hoarseness: No Hx Chronic Obstructive Pulmonary Disease (COPD): No (RECENT PNEUMONIA 04/2018) Hx Asthma: No Hx Emphysema: No Hx Sleep Apnea: No Hx Respiratory Tract Infection/Cold (presently): No Do You Snore Loudly (louder than talking or can be heard): No Do You Often Feel Tired/ Fatigued/ Sleepy Dring Daytime?: No Has Anyone Observed You Stop Breathing During Sleep?: No Result (for STOP score): Negative Hx Smoking: No Smoking Status: Never smoker Gastrointestinal Controlled With Meds: Yes (ON PROTONIX) Hx Gastrointestinal Disorders: No Hx Gastrointestinal Bleed: No (CHECKING FOR BLEED) Hx Ulcer: No Hx Hiatal Hernia: No Difficulty Chewing/Swallowing: No Special diet followed at home: No Hx Unplanned Weight Loss of 20#: No HX Unplanned Weight Gain of 20#: No Neurological Hx Seizures: No HX Syncope/Blackout Spells/Unconsciousness: No Hx Transient Ischemic Attacks (TIA): No Hx Multiple Sclerosis: No Hx Parkinson's Disease: No Hx Head/Neck Injury: No Hx Headaches: Yes (MIGRAINES PER HX) Hx Back Injury/Pain: Yes (BACK PAIN PER HX) Recent Onset of Speech Difficulty: No Restless Legs: No Does patient have nerve stimulator: No Blood Disorder Hx Leukemia: No Bleeding Tendencies: Yes (BRUISE EASILY) Hx Deep Vein Thrombosis: No Hx High Cholesterol: No Blood Transmitted Disease: No Hx Hepatitis: No (FATTY LIVER PER HX) Hx Cirrhosis: No Hx Anemia: Yes (04/2018 ANEMIA/ HOSPITALIZED) Hx Blood Disorders: No Reproduction : No Is Patient Lactating: No Hx Hysterectomy: No Hx Tubal Ligation: Yes (1981) Are You Post Menopause: Yes Genitourinary Hx Renal Disease: No Hx Dialysis: No Musculoskeletal Hx Arthritis: No Hx Rheumatoid Arthritis: No Hx Gout: Yes (ON MED) Recent Onset of an Orthopedic Problem: No Endocrine Hx Diabetes: No Thyroid Disease: No Hx Steroid Therapy: No Psycho/Social Hx Substance Use: No Hx Alcohol Use: No Hx Anxiety: Yes Hx Depression: Yes (ON MED) Mental Illness: No Hx Dementia: No Miscellaneous Hx Cancer: No Recent Exposure to Contagious Disease: No Hx of C-Diff: No Any Loose Teeth: No Allergies propranolol (From Inderal [place]) Allergy (Mild, Verified 01/10/24 09:11) Other bradycardia Maternal: Family History Mother Breast cancer Hypertension Cancer Father Diabetes Heart disease Hypertension Cancer Brother Diabetes COPD Paternal: Family History Mother Breast cancer Hypertension Cancer Father Diabetes Heart disease Hypertension Cancer Brother Diabetes Heart Disease Discharge Is Pt Admitted From a [facility], or a Prison: No After D/C, Where Do you Plan to Go: Return Home From the PAT History Number of Risk Factors: 3 Vital Signs Vital Signs Vital Signs: 01/10/24 09:11 01/10/24 09:11 Temperature 97.3 F L Temperature Source Temporal Pulse Rate 50 L Respiratory Rate 16 Respiratory Pattern Normal Blood Pressure 143/67 H Blood Pressure Mean 92 Blood Pressure Source Monitor Blood Pressure Position Semi-Fowlers Blood Pressure Location Right Arm Pulse Ox 100 Oxygen Delivery Method Room Air Weight Weight: 158 lb 11.725 oz Body Mass Index (BMI) 28.0 Physical Exam Const alert, oriented x3 and no apparent distress HEENT normocephalic and head/scalp atraumatic Resp normal respiratory effort Cardio regular rate GI soft to palpation and non-tender; Negative for non-distended Palpation: Negative for guarding Extremity no clubbing, cyanosis or edema Skin no rashes or lesions noted Neuro CN's II-XII intact bilaterally Psych mental status grossly normal Assessment & Plan Assessment/Plan (1) Hx of colonic polyps: Surgery Risks - Colonoscopy I discussed with the patient the risks of the procedure: Yes Risks Include but are not Limited To: Risks include but are not limited to: Bleeding, perforation requiring further surgery, inability to complete colonoscopy requiring barium enema.
--- NOTE | 2024-01-10 10:43 | OP.COLON_ITS ---
Patient Name: Peggy Corona Procedure Date: 01/10/2024 10:16 AM Date of : 1950 Age: 74 Procedure: Colonoscopy Indications: High risk colon cancer surveillance: Personal history of colonic polyps Providers: Khadijah Zelaya MD Referring MD: Kahlil Wilkinson Medicines: Monitored Anesthesia Care Patient Profile: Last Colonoscopy: May 2018. Complications: No immediate complications. Procedure: Pre-Anesthesia Assessment: - Prior to the procedure, a History and Physical was performed, and patient medications and allergies were reviewed. The patient's tolerance of previous anesthesia was also reviewed. The risks and benefits of the procedure and the sedation options and risks were discussed with the patient. All questions were answered, and informed consent was obtained. Prior Anticoagulants: The patient has taken no anticoagulant or antiplatelet agents. ASA Grade Assessment: Per anesthesia. After reviewing the risks and benefits, the patient was deemed in satisfactory condition to undergo the procedure. After I obtained informed consent, the scope was passed under direct vision. Throughout the procedure, the patient's blood pressure, pulse, and oxygen saturations were monitored continuously. The Colonoscope was introduced through the anus and advanced to the cecum, identified by appendiceal orifice and ileocecal valve. The colonoscopy was performed without difficulty. The patient tolerated the procedure well. The quality of the bowel preparation was good. Scope In: 10:21:39 AM Scope Withdrawal Time 0 hours 5 minutes 20 seconds Scope Out: 10:37:31 AM Total Procedure Duration Time 0 hours 15 minutes 52 seconds Findings: The perianal and digital rectal examinations were normal. Multiple small-mouthed diverticula were found in the sigmoid colon and descending colon. A 5 mm polyp was found in the ascending colon. The polyp was semi-pedunculated. The polyp was removed with a hot snare. Resection and retrieval were complete. The exam was otherwise without abnormality on direct and retroflexion views. Impression: - Diverticulosis in the sigmoid colon and in the descending colon. - One 5 mm polyp in the ascending colon, removed with a hot snare. Resected and retrieved. - The examination was otherwise normal on direct and retroflexion views. Recommendation: - Discharge patient to home. - High fiber diet. - Continue present medications. - Await pathology results. - Repeat colonoscopy in 5 years for surveillance based on pathology results. - Repeat colonoscopy depending on overall health at that time. Procedure Code(s): --- Professional --- 10378, PT, Colonoscopy, flexible; with removal of tumor(s), polyp(s), or other lesion(s) by snare technique Diagnosis Code(s): --- Professional --- Z86.010, Personal history of colonic polyps D12.2, Benign neoplasm of ascending colon K57.30, Diverticulosis of large intestine without perforation or abscess without bleeding CPT copyright 2021 [employer]. All rights reserved. The codes documented in this report are preliminary and upon upsetter setter up review may be revised to meet current compliance requirements. MD Khadijah Lewis MD 01/10/2024 10:43:05 AM This report has been signed electronically. Number of Addenda: 0 Note Initiated On: 01/10/2024 10:16 AM
--- NOTE | 2024-01-10 10:43 | OP.CCLET_ITS ---
01/10/2024 Kahlil Wilkinson [address] [place] [address] Re : Colonoscopy procedure for Peggy Chloe Dear Dr. Wilkinson This procedure was performed on Wednesday, January 10, 2024. My impressions and recommendations are as follows: Impressions : - Diverticulosis in the sigmoid colon and in the descending colon. - One 5 mm polyp in the ascending colon, removed with a hot snare. Resected and retrieved. - The examination was otherwise normal on direct and retroflexion views. Recommendations : - Discharge patient to home. - High fiber diet. - Continue present medications. - Await pathology results. - Repeat colonoscopy in 5 years for surveillance based on pathology results. - Repeat colonoscopy depending on overall health at that time. My findings are described in the full procedure note, which is enclosed. If I can be of further assistance, please feel free to contact me at Doctor phone number(s): , Work: . Sincerely, MD Khadijah Lewis MD 01/10/2024 10:43:05 AM This report has been signed electronically.
--- NOTE | 2024-01-10 10:46 | PCM.POST.ANE ---
Anesthesia: Postop Eval I Current Vital Signs Temperature: 97 F Pulse Rate: 57 Blood Pressure: 89/44 Respiratory Rate: 16 Pulse Ox: 97 Oxygen Delivery Method: Room Air Assessment Airway patent: Yes Spontaneous unlabored respirations: Yes Mental status: Asleep nausea: No Vomiting: No Anesthesia Complication: No Fluid Hydration Crystalloid volume administer (ml): 40 Total IV fluid infused: 40 Progress Note Anesthesia document: Postop Eval 1 completed: Yes
--- NOTE | 2024-01-10 11:11 | PCM.POSTANE2 ---
Anesthesia Postop Eval I Sum Postop Eval Completion status Anesthesia document: Postop Eval 1 completed: Yes Anesthesia Postop Eval I Summary Anesthesia Postop Eval I Summary: Anesthesia Postop Eval I: Assessment Summary Airway patent Yes 01/10/24 10:46 [email or web address] Spontaneous unlabored Yes 01/10/24 10:46 [email or web address] respirations Mental status Asleep 01/10/24 10:46 [email or web address] nausea No 01/10/24 10:46 [email or web address] Vomiting No 01/10/24 10:46 [email or web address] Anesthesia Postop Eval I: Fluid Summary Crystalloid volume administer 40 01/10/24 10:46 [email or web address] (ml) Colloids volume administered ( ml) Blood Product volume administered (ml) Total IV fluid infused 40 01/10/24 10:46 [email or web address] Anesthesia Postop Eval I: Summary Notes Anesthesia Complication No 01/10/24 10:46 [email or web address] Anesthesia Complication Comment: Post-operative progress note Anesthesia: Postop Eval II Evaluation Mental status: Awake Pain Level: 0 nausea: No Vomiting: No
== END 2024-01-10 11:48 | disposition home or self-care (01) ==
LOC: EN 08:40 → AC 08:42
PROVIDERS: PCP Family Medicine; Referring Provider Family Medicine; Visit Provider Surgery
PROC: 0DJD8ZZ Inspection of Lower Intestinal Tract, Via Natural or Artificial Opening Endoscopic (ICD-10-PCS; CPT 45378; principal; 2024-01-10 09:55)
DX: D12.2 Benign neoplasm of ascending colon (principal); K57.30 Diverticulosis of large intestine without perforation or abscess without bleeding; I10 Essential (primary) hypertension; I25.2 Old myocardial infarction; F32.9 Major depressive disorder, single episode, unspecified; D64.9 Anemia, unspecified; E78.00 Pure hypercholesterolemia, unspecified; M41.9 Scoliosis, unspecified; M10.9 Gout, unspecified; M85.80 Other specified disorders of bone density and structure, unspecified site; Z90.49 Acquired absence of other specified parts of digestive tract; Z87.19 Personal history of other diseases of the digestive system; Z79.82 Long term (current) use of aspirin; Z79.899 Other long term (current) drug therapy; Z86.0100 Personal history of colon polyps, unspecified
CPT/HCPCS: 45385; 88305; A4216; J2405

== ENCOUNTER → 2024-10-17 | Outpatient (CLI) | payer MEDICARE, OTHER, SELFPAY ==
[2024-10-17 17:53] LABS: Hematocrit 29.9 % (37-47); Hemoglobin 8.5 g/dL (12.0-15.0); Immature Granulocytes Count 0.050 X10^3/uL (0.0-0.0); Mean Corp Hgb Conc 28.4 g/dL (32-36); Mean Corpuscular Volume 68.0 fL (81-99); Mean Platelet Vol. 10.0 fl (6.2-12.0); NRBC Flagged by Analyzer 0 % (0-5); POSITIVE MORPHOLOGY YES; Platelet Count 657 K/mm3 (150-450); RBC Distribution Width CV 21.3 % (11.6-14.6); RBC Distribution Width SD 49.4 fl (35.1-43.9); Red Blood Count 4.40 M/mm3 (4.2-5.4); White Blood Count 10.7 K/mm3 (4.4-11.0)
[2024-10-17 18:37] LABS: Differential Indicated SCAN CRITERIA MET
[2024-10-17 18:45] LABS: AST(SGOT) 25 U/L (<=31); Alanine Aminotransfer ALT/SGPT 14 U/L (<=34); Albumin, Serum 4.1 g/dL (3.4-4.8); Alkaline Phosphatase 166 U/L (35-104); Anion Gap 17 (5-15); BUN 17 mg/dL (4-19); BUN/Creat Ratio 15.2 RATIO (10-20); Calcium,Total 9.7 mg/dL (7.6-11.0); Carbon Dioxide 20.2 mmol/L (21.0-32.0); Chloride 102 mmol/L (98-108); Globulin 3.7 g/dL (2.2-4.2); Glucose 102 mg/dL (70-99); Potassium 3.8 mmol/L (3.3-5.1); Vitamin D,25 Hydroxy 9.7 ng/mL (30-100)
[2024-10-17 18:49] LABS: Anisocytosis 2+; Macrocytosis 1+
== END | disposition home or self-care (01) ==
LOC: MFPLAB 15:34
PROVIDERS: PCP Family Medicine; Referring Provider Family Medicine; Visit Provider Family Medicine
DX: I13.0 Hypertensive heart and chronic kidney disease with heart failure and stage 1 through stage 4 chronic kidney disease, or unspecified chronic kidney disease (principal); I50.32 Chronic diastolic (congestive) heart failure; N18.31 Chronic kidney disease, stage 3a
CPT/HCPCS: 36415; 80053; 82306; 85025

== ENCOUNTER → 2024-10-20 | Outpatient (CLI) | payer MEDICARE, OTHER, SELFPAY ==
[2024-10-21 00:34] LABS: Creatinine, Urine (random) 44.00 mg/dL (28.00-217.00); Microalbumin,Random Urine 47.1 mg/L (<20 mg/L)
== END | disposition home or self-care (01) ==
LOC: LABSPEC 15:49
PROVIDERS: PCP Family Medicine; Referring Provider Family Medicine; Visit Provider Family Medicine
DX: I10 Essential (primary) hypertension (principal)
CPT/HCPCS: 82043; 82570

== ENCOUNTER → 2025-01-26 | Outpatient (CLI) | payer MEDICARE, OTHER, SELFPAY ==
[2025-01-26 17:57] LABS: AST(SGOT) 19 U/L (<=31); Alanine Aminotransfer ALT/SGPT 14 U/L (<=34); Albumin, Serum 3.7 g/dL (3.4-4.8); Alkaline Phosphatase 141 U/L (35-104); Anion Gap 11 (5-15); BUN 17 mg/dL (4-19); BUN/Creat Ratio 14.9 RATIO (10-20); CRP < 3.00 mg/L (0.0-3.0); Calcium,Total 9.7 mg/dL (7.6-11.0); Carbon Dioxide 22.3 mmol/L (21.0-32.0); Chloride 108 mmol/L (98-108); Globulin 3.4 g/dL (2.2-4.2); Glucose 98 mg/dL (70-99); Potassium 4.2 mmol/L (3.3-5.1)
[2025-01-26 18:03] LABS: Hematocrit 28.0 % (37-47); Hemoglobin 7.7 g/dL (12.0-15.0); Immature Granulocytes Count 0.020 X10^3/uL (0.0-0.0); Mean Corp Hgb Conc 27.5 g/dL (32-36); Mean Corpuscular Volume 68.0 fL (81-99); Mean Platelet Vol. 10.8 fl (6.2-12.0); NRBC Flagged by Analyzer 0 % (0-5); POSITIVE MORPHOLOGY YES; Platelet Count 432 K/mm3 (150-450); RBC Distribution Width CV 22.5 % (11.6-14.6); RBC Distribution Width SD 52.7 fl (35.1-43.9); Red Blood Count 4.12 M/mm3 (4.2-5.4); White Blood Count 7.0 K/mm3 (4.4-11.0)
[2025-01-26 18:14] LABS: Differential Indicated SCAN CRITERIA MET
[2025-01-26 19:10] LABS: Anisocytosis 2+; Hypochromasia 2+; Polychromasia 2+
== END | disposition home or self-care (01) ==
LOC: MFPLAB 14:28
PROVIDERS: PCP Family Medicine; Visit Provider Family Medicine
DX: R10.9 Unspecified abdominal pain (principal)
CPT/HCPCS: 36415; 80053; 85025; 85652; 86140

== ENCOUNTER → 2025-02-02 | Outpatient (CLI) | payer MEDICARE, OTHER, SELFPAY ==
--- NOTE | 2025-02-02 12:47 | RAD_ITS ---
PROCEDURE: ABDOMEN SINGLE VIEW 02/02/2025 REASON FOR EXAM: LOWER ABDOMINAL PAIN. FULL LLQ, SUPRAPUBIC. PROB CONSTIPATION TECHNIQUE: Procedure Code: RADABD Modality: DX Procedure: ABDOMEN SINGLE VIEW COMPARISON: None FINDINGS: There is a significant stool burden in the distal colon and rectal vault. There are few air-fluid levels, likely a mild ileus. There is a large hiatal hernia. There is a 2.5 cm gallstone. There is multilevel degenerative disc disease of the lumbar spine with moderate levoscoliosis. RAD/Abdomen Single View IMPRESSION: Moderate constipation. Cholelithiasis. Large hiatal hernia. Other findings a s noted. Reading Location: [place] [id number]
== END | disposition home or self-care (01) ==
LOC: MTRAD 12:47
PROVIDERS: PCP Family Medicine; Referring Provider Family Medicine; Visit Provider Family Medicine
DX: R10.32 Left lower quadrant pain (principal)
CPT/HCPCS: 74018